=== PATIENT | female | born 1960 | race Caucasian/White ===

== ENCOUNTER 2025-09-20 16:32 | Inpatient (IN) | payer MEDICARE, MEDICAID, SELFPAY ==
[2025-09-20] VITALS (9 sets, daily range): BP systolic 142–155; BP diastolic 67–85; PULSE 68–107; RESP 13–17; TEMP 36.6–36.7; O2SAT 92–98; BMI 30.9
--- NOTE | ~2025-09-20 | XR_ITS ---
EXAM/PROCEDURE: XR chest 1V portable HISTORY: cough and shortness of breath COMPARISON: September 20 TECHNIQUE: AP view(s) of the chest. FINDINGS: LUNGS: Clear of acute processes. PLEURAL SPACES: Clear. No evidence of fluid or pneumothorax. HEART/ MEDIASTINUM: Normal in appearance. SOFT TISSUES: No significant findings. BONES: No acute osseous abnormality. IMPRESSION: No acute findings. Reviewed, dictated and finalized at location A. IMPRESSION: No acute findings.
--- NOTE | ~2025-09-20 | XR_ITS ---
EXAMINATION: XR chest 1V portable COMPARISON: No comparisons available. HISTORY: AMS FINDINGS: The lungs are clear, no effusion. No pneumothorax. Heart is normal size. Mediastinal and hilar contours are within normal limits. Bony thorax no acute abnormality. Miscellaneous: None Impression: No acute cardiopulmonary abnormality. Reviewed, dictated and finalized at location P. Impression: No acute cardiopulmonary abnormality.
--- NOTE | ~2025-09-20 | CT_ITS ---
EXAMINATION: CT brain wo azucena, 09/20/2025 17:35 CDT HISTORY: AMS COMPARISON: No comparisons available. Technique: Axial images obtained of the brain without contrast. One or more of the following dose reduction techniques were used: automated exposure control, adjustment of the mA and/or kV according to patient size, use of iterative reconstruction technique. Findings: No acute infarct or parenchymal hemorrhage. No abnormal mass or mass effect. No midline shift. No extra-axial fluid collections. No hydrocephalus. Mastoid air cells unremarkable. Sinuses and orbits unremarkable. No acute fracture. No significant facial or scalp soft tissue swelling evident. No radiopaque foreign body is seen. Impression: 1.No acute intracranial abnormality. Reviewed, dictated and finalized at location P. Impression: 1.No acute intracranial abnormality.
--- NOTE | 2025-09-20 16:38 | ED_ITS ---
HPI - Altered Mental Status General Chief Complaint: Altered Mental Status Stated Complaint: AMS History of Present Illness HPI narrative: 65-year-old female presenting from [facility] after EMS was called for altered mental status. Patient was found in bed, soaking in urine, empty fifth of vodka in the room. Patient is awake and answering questions to her name and location. Patient states she just does not feel good. She states she is dying. Per EMS report patient has a history of seizure disorder, leukemia, bipolar. Per EMS report patient was potentially lying around in bed since Sunday as they were called to the same location for similar complaint but patient refused transfer at that time and was found to be intoxicated as well. Patient is answering questions but has no focal complaints other than stating that she does not feel well and is dying. Endorses drinking alcohol. Has not been taking her medications. Related Data Allergies Allergy/AdvReac Type Severity Reaction Status Date / Time trimethoprim Allergy Mild Unknown Verified 09/20/25 16:55 lithium Allergy Unknown Verified 09/20/25 16:55 Sulfa (Sulfonamide Allergy Unknown Verified 09/20/25 16:55 Antibiotics) Review of Systems 2 Review of Systems: ROS unobtainable: Yes unobtainable due to medical condition and unobtainable due to mental status Exam 2 Narrative: GENERAL: Disheveled, foul smelling, clothing soaked in urine with various stains HEAD: Normocephalic, atraumatic EYES: Pupils equal reactive to light, 3 mm, no ocular entrapment or asymmetry ENT: Nares clear, no rhinorrhea or epistaxis. Mucous membranes dry. NECK: Supple. CHEST: Coughing frequently, coarse breath sounds but no wheezing or rhonchi HEART: [Regular rate and rhythm]. No murmur heard. [Normal peripheral pulses.] ABDOMEN: [Soft, nondistended], [nontender], [No rigidity or guarding] EXTREMITIES: Normal range of motion. [No edema.] SKIN: Warm, dry, no rash. NEURO: Able to move all extremities, alert oriented times 2-3, no facial asymmetry or ocular movement impairment. Answering questions and has some slurring speech Course Vital Signs Vital signs: Vital Signs Pulse Rate 68 09/20/25 16:31 Respiratory Rate 16 09/20/25 16:31 Blood Pressure 149/70 H 09/20/25 16:31 Pulse Oximetry 92 09/20/25 16:31 Oxygen Delivery Room Air 09/20/25 16:31 Pulse Rate 96 09/20/25 17:17 Respiratory Rate 17 09/20/25 17:17 Blood Pressure 153/73 H 09/20/25 17:17 Pulse Oximetry 96 09/20/25 17:17 Oxygen Delivery Room Air 09/20/25 17:12 Procedures EJ/Peripheral Line Arm L: EJ/Peripheral Line Date: 09/20/25 EJ/Peripheral Line Time: 17:04 Time Out Performed: Yes Skin Cleansed in Sterile Fashion: Yes Ultrasound Guided: Yes Size (gauge): 20 IV Secured and Dressing Applied: Yes Patient Tolerated Procedure: well and no complications MDM - Altered Mental Status MDM Narrative Medical decision making narrative: 65-year-old female presenting from [facility] after EMS was called for altered mental status. Patient was found in bed, soaking in urine, empty fifth of vodka in the room. Patient is awake and answering questions to her name and location. Patient states she just does not feel good. She states she is dying. Per EMS report patient has a history of seizure disorder, leukemia, bipolar. Per EMS report patient was potentially lying around in bed since Sunday as they were called to the same location for similar complaint but patient refused transfer at that time and was found to be intoxicated as well. Patient is answering questions but has no focal complaints other than stating that she does not feel well and is dying. Endorses drinking alcohol. Has not been taking her medications. Patient is very disheveled in appearance, clothing his soaked in urine and various stains. She is coughing frequently throughout the examination has some coarse breath sounds. No decubitus ulcerations or signs of trauma. Patient is able to answer questions alert times 2-3. No focal neurological deficits. Appears intoxicated. Broad workup underway at this time given patient is not able to provide great history. Possibility of alcohol intoxication, drug intoxication, dehydration, intracranial process, rhabdomyolysis, UTI, pneumonia. CT scan of the head obtained as well as toxicological panel workup with blood work and urinalysis with straight catheterization and drug screen. Patient is highly intoxicated alcohol level 399. She has an anion gap metabolic acidosis presumptively alcoholic or starvation ketosis. Mildly elevated lactate probably from dehydration. Normal kidney function and normal electrolytes. Patient given dextrose containing fluids for rehydration as well as thiamine and multivitamin. She has a rhabdomyolysis with an elevated CPK of almost 1400. Repeat laboratory studies ordered after fluid replenishment. Patient has not had any of her Keppra and several days so she is given a 1500 mg bolus. Chest x-ray and EKG unremarkable. CT of the head unremarkable. Given patient's significant alcohol intoxication and rhabdomyolysis she will require admission for trending labs and rehydration and monitoring. Spoke to the hospitalist mid- level provider Kymberly who accepted the patient to a telemetry bed at this time. Medical Records Attestation: I reviewed the patient's medical records. Lab Data Attestation: I reviewed the patient's lab results. 09/20/25 16:58 09/20/25 16:58 Labs: Lab Results 09/20/25 09/20/25 09/20/25 Range/Units 16:53 16:58 16:58 WBC 2.8 L (4.5-10.0) K/mm3 RBC 4.29 (4.2-5.4) M/mm3 Hgb 12.1 (12.0-15.0) g/dL Hct 37.8 (37.0-47.0) % MCV 88.1 (80-100) fl MCH 28.2 (26-34) pg MCHC 32.0 (32-36) g/dl RDW 16.8 H (11.5-14.5) % Plt Count 283 (150-375) k/mm3 MPV 8.5 (7.4-10.4) fl Immature Gran % (Auto) 1.1 H (0-0.5) % Neut % (Auto) 26.5 L (45.5-73.1) % Lymph % (Auto) 61.2 H (18.3-44.2) % Laporte % (Auto) 8.7 H (2.6-8.5) % Eos % (Auto) 1.1 (0-4.4) % Baso % (Auto) 1.4 H (0.2-1.2) % Lymph # (Auto) 1.69 (0.9-3.2) K/mm3 Laporte # (Auto) 0.2 (0.1-0.6) K/mm3 Eos # (Auto) 0.0 (0-0.3) K/mm3 Baso # (Auto) 0.0 (0.0-0.1) K/mm3 Abs Immat Gran (auto) 0.03 (0.00-0.031) K/mm3 Absolute Neuts (auto) 0.7 L (1.3-6.7) K/mm3 Absolute Nucleated RBC 0.000 (0.0-0.012) K/mm3 Nucleated RBC % 0.0 (0.0-0.2) % PT 14.1 (11.1-14.7) Seconds INR 1.1 APTT 25.5 (22.3-36.8) Seconds Sodium 138 (137-145) mmol/L Potassium 4.6 (3.4-5.0) mmol/L Chloride 96 L (98-107) mmol/L Carbon Dioxide 17 L (22-30) mmol/L Anion Gap 25 H (4-12) mmol/L BUN 10 (7-17) mg/dL Creatinine 0.81 (0.7-1.0) mg/dL Estim Creat Clear Calc 67 ml/min Estimated GFR > 60 (59 - ) Glucose 98 (65-110) mg/dL Lactic Acid 2.6 H (0.7-2.0) mmol/L Calcium 9.1 (8.4-10.2) mg/dL Total Bilirubin 0.7 (0.2-1.3) mg/dL AST 115 H (14-36) U/L ALT 35 (6-35) U/L Alkaline Phosphatase 233 H (38-126) U/L Total Creatine Kinase 1392 H Cancelled (30-135) U/L Total Protein 8.1 (6.3-8.2) g/dL Albumin 4.9 (3.5-5.1) g/dL TSH (Reflex) 0.505 (0.465-4.68) uIU/mL Urine Color Yellow (Yellow) Urine Appearance Clear (Clear) Urine pH 5.0 (5.0-9.0) Ur Specific Dewitt 1.012 (1.001-1.035) Urine Protein 2+ H (Negative) mg/dL Urine Glucose (UA) Negative (Negative) mg/dL Urine Ketones 3+ H (Negative) mg/dL Ur Blood (Man) 2+ H (Negative) Urine Nitrate Negative (Negative) Urine Bilirubin Negative (Negative) Urine Urobilinogen 0.2 (<2.0) mg/dL Leukocyte Esterase Rfl Negative (Negative) TAVARES/UL Urine RBC 0-2 (0-2) /hpf Urine WBC 0-5 (0-3) /hpf Ur Squamous Epith Cells None seen (Few) /hpf Urine Bacteria None seen /hpf Urine Casts 0-2 Salicylates < 1.0 L (2-20) mg/dL Urine Opiates Screen Negative (Negative) Urine Methadone Screen Negative (Negative) Acetaminophen < 10 L (10-30) ug/mL Ur Barbiturates Screen Negative (Negative) Ur Phencyclidine Scrn Negative (Negative) Ur Amphetamine Screen Negative (Negative) U Benzodiazepines Scrn Negative (Negative) Urine Cocaine Screen Negative (Negative) U Cannabinoids Screen Negative (Negative) Ethyl Alcohol 399 H* (<10) mg/dL Imaging Data Attestation: I personally reviewed and interpreted this imaging study as follows: My impression: Impressions Chest X-Ray 09/20/25 17:30 Impression: No acute cardiopulmonary abnormality. Head CT 09/20/25 17:43 Impression: 1.No acute intracranial abnormality. Discharge Plan Discharge Clinical Impression: Altered mental status, Alcoholic intoxication, Rhabdomyolysis, Alcoholic ketoacidosis Patient Disposition: Still a Patient Condition: Stable Time of Disposition: 19:00
--- OUTSIDE RECORDS SUMMARY | 2025-09-20 16:56 | XMS_ITS | Encounter Summary ---
Author Organization [facility] Address [address] [place] [address] Phone Care Team Providers Care Modeling Agent Name Role Phone No, Physician Primary Care Provider [phone] Marla Keene MD Unavailable Unknown, Notinfile Primary Care Provider Unavail able Encounter Details Date Type Department Care Team (Late st Contact Info) Description 07/31/2024 Telephone [facility] Bone Marrow Transplant [address], [place] [address] Yesi Pa V. Social History Tobacco Use Types Packs/Day Years Used Date Smoking Tobacco: Never Smokeless Tobacco: Never PHQ-2 Answer Date Recorded PHQ-2 Total Score (If total score is 3 or more points, staff should administer the PHQ-9) 0 08/01/2024 PHQ-9 Answer Date Recorded PHQ-9 Total Score 1 08/01/2024 Personal Safety Answer Date Recorded Getting School Help Needed Not on file 07/02 Comments No Sex and Gender Information Value Date Recorded Sex Assigned at Not on file Legal Sex Female 9:00 AM CDT Gender Identity Female 07/22/2025 12:24 PM CDT Sexual Orientation Not on file documented as of this encounter Plan of Treatment Not on file documented as of this encounter Visit Diagnoses Not on filedocumented in this encounter Additional Health Concerns Infection Onset Date Last Indicated Resolved Time COVID: Suspected 09/07/2024 09/07/2024 09/07/2024 1:40 PM CDT COVID: Suspected 09/14/2024 09/14/2024 09/14/2024 4:54 PM CDT COVID: Suspected 09/15/2024 09/15/2024 09/15/2024 6:24 PM CDT COVID: Suspected 09/25/2024 09/25/2024 09/25/2024 6:22 PM CDT C. difficile suspected Comment:09/29/24: Pt unable to provide sample since ordering date of 09/25. -Naheed Singer RN 09/25/2024 09/25/2024 09/29/2024 10 :30 AM GLOBAL SALES EXECUTIVE COVID: Suspected 10/06/2024 10/06/2024 10/06/2024 1:18 PM GLOBAL SALES EXECUTIVE COVID: Suspected 10/27/2024 10/27/2024 10/27/2024 5:14 PM GLOBAL SALES EXECUTIVE COVID: Suspected 10/27/2024 10/27/2024 10/27/2024 8:46 PM GLOBAL SALES EXECUTIVE Norovirus suspected 02/06/2025 02/06/2025 02/08/20 3:05 AM CDT Rotavirus suspected 02/06/2025 02/06/2025 02/08/20 3:05 AM CDT C. difficile suspected 02/06/2025 02/06/202502/07 3:05 AM CDT COVID: Suspected 03/29/2025 03/29/2025 03/29/2025 7:11 PM CDT COVID: Suspected 07/06/2025 07/06/2025 07/06/2025 9:27 PM CDT Ring Surveillance: C. auris Comment:07/07/25: Patient has been identified as part of ring surveillance efforts in regard to c.auris. Patient may require a screening swab. No additional isolation precautions are necessary with this flag/n.moll 07/14/25- screening swab results Not detected/n.moll 07/07/2025 07/07/2025 07/14/2025 11:32 A M CDT COVID: Suspected 07/22/2025 07/22/2025 07/22/2025 12:56 PM CDT Rhino/Enterovirus 09/11/2025 09/11/2025 09/18/2025 7:26 PM CDT documented as of this encounter Care Teams Modeling Agent Relationship Specialty Start Date End Date No, Physician PCP - General 8/20/24 7/10/25 Unknown, Notinfile PCP - General 06/05/25 Marla Keene MD [address] [employer] [place] [address] Consulting Physician Medical Oncology 07/21/24 documented as of this encounter
--- OUTSIDE RECORDS SUMMARY | 2025-09-20 16:56 | XMS_ITS | Encounter Summary ---
Author Organization [facility] Address [address] [place] [address] Care Team Providers Care Wig Stylist Name Role Phone No, Physician Primary Care Provider [phone] Marla Keene MD Unavailable Unknown, Notinfile Primary Care Provider Unavail able Encounter Details Date Type Department Care Team (Late st Contact Info) Description 08/04/2024 Documentation [facility] Neuro Interventional Radiology [address] [place] [address] Bing Best, RT Social History Tobacco Use Types Packs/Day Years Used Date Smoking Tobacco: Never Smokeless Tobacco: Never [facility] Utilities Answer Date Recorded In the past 12 months has [employer] electric, gas, oil, or water company threatened to shut off services in your home? No 08/07/2024 Social Connection and Isolation Panel Answer Date Recorded In a typical week, how many times do you talk on the phone with family, friends, or neighbors? Twice a week 08/07/2024 How often do you get together with friends or re latives? Once a week 08/07/2024 How often do you attend mormonism or yarsanism serv ices? Never 08/07/2024 Do you belong to any clubs o r organizations such as mormonism groups, unions, fraternal or athletic groups, or school groups? No 08/07/2024 How often do you attend meet ings of the clubs or organizations you belong to? Never 08/07/2024 Are you , , di vorced, , never , or living with a partner? 08/07/2024 Overall Financial Resource Strain (CARDIA) Answe r Date Recorded How hard is it for you to pa y for the very basics like food, housing, medical care, and heating? Not hard at all 08/07/2024 PHQ-2 Answer Date Recorded PHQ-2 Total Score 0 08/07/2024 Hunger Vital Sign Answer Date Recorded Within the past 12 months, y ou worried that your food would run out before you got the money to buy more. Never true 08/07/20 24 Within the past 12 months, t he food you bought just didn't last and you didn't have money to get more. Never true 08/07/2024 PRAPARE - Transportation Answer Date Re corded In the past 12 months, has l ack of transportation kept you from medical appointments or from getting medications? Yes 07/27 In the past 12 months, has l ack of transportation kept you from meetings, work, or from getting things needed for daily living? No 08/07/2024 PHQ-9 Answer Date Recorded PHQ-9 Total Score 1 08/01/2024 Housing Stability Vital Sign Answer Nino e Recorded In the last 12 months, was t here a time when you were not able to pay the mortgage or rent on time? No 08/07/2024 In the past 12 months, how m any times have you moved where you were living? 1 08/07/2024 At any time in the past 12 m [facility], were you homeless or living in a alf (including now)? No 08/07/2024 Personal Safety Answer Date Recorded Getting School [...] RN 09/25/2024 09/25/2024 09/29/2024 10 :30 AM HOSE HANDLER COVID: Suspected 10/06/2024 10/06/2024 10/06/2024 1:18 PM HOSE HANDLER COVID: Suspected 10/27/2024 10/27/2024 10/27/2024 5:14 PM HOSE HANDLER COVID: Suspected 10/27/2024 10/27/2024 10/27/2024 8:46 PM HOSE HANDLER Norovirus suspected 02/06/2025 02/06/2025 02/08/20 3:05 AM [...] documented as of this encounter Care Teams Wig Stylist Relationship Specialty Start Date End Date No, Physician PCP - General 07/15/24 06/04/25 Unknown, Notinfile PCP - General 06/05/25 Marla Keene MD [address] [place] [address] Consulting Physician Medical Oncology 07/21/24 documented as of this encounter
--- OUTSIDE RECORDS SUMMARY | 2025-09-20 16:56 | XMS_ITS | Encounter Summary ---
Author Organization [facility] Address [address] [place] [address] Phone Care Team Providers Care Household Appliances Service Technician Name Role Phone No, Physician Primary Care Provider [phone] Marla Keene MD Unavailable Unknown, Notinfile Primary Care Provider Unavail able Encounter Details Date Type Department Care Team (Late st Contact Info) Description 07/21/2024 Pre Admission [facility] Bone Marrow Transplant [address], [address] [place] [id number] Pamella Meirda, JODIE Social History Tobacco Use Types Packs/Day Years Used Date Smoking Tobacco: Never Smokeless Tobacco: Never Personal Safety Answer Date Recorded Getting School Help Needed Not on file 07/02 Comments Unknown Sex and Gender Information Value Date Recorded Sex Assigned at Not on file Legal Sex Female 9:00 AM CDT Gender Identity Female 07/22/2025 12:24 PM CDT Sexual Orientation Not on file documented as of this encounter Nursing Notes * Pamella Merida, JODIE - 07/21/2024 3:35 PM CDT Treatment Plan Verification Chemotherapy Plan: R-HyperCVAD Admitting Date: 07/30/24 First cycle? No First dose administration: inpatient growth factor? Yes, Pegfilgrastim On-Body Injector scheduled Is there a dose alteration in this regimen? No Intrathecal Chemotherapy? needing; during admission & after discharge. 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 Oncology Chemotherapy Treatment 06/27/2024 - Present MD Kellen Cosigned by Marla Keene MD at 07/22/2024 1:27 PM CDT documented in this encounter Plan of Treatment Not on [...] RN 09/25/2024 09/25/2024 09/29/2024 10 :30 AM LOST AND FOUND CLERK COVID: Suspected 10/06/2024 10/06/2024 10/06/2024 1:18 PM LOST AND FOUND CLERK COVID: Suspected 10/27/2024 10/27/2024 10/27/2024 5:14 PM LOST AND FOUND CLERK COVID: Suspected 10/27/2024 10/27/2024 10/27/2024 8:46 PM LOST AND FOUND CLERK Norovirus suspected 02/06/2025 02/06/2025 02/08/20 3:05 AM [...] documented as of this encounter Care Teams Household Appliances Service Technician Relationship Specialty Start Date End Date No, Physician PCP - General 07/15/24 06/04/25 Unknown, Notinfile PCP - General 06/05/25 Marla Keene MD [address] [place] [address] Consulting Physician Medical Oncology 07/21/24 documented as of this encounter
--- OUTSIDE RECORDS SUMMARY | 2025-09-20 16:56 | XMS_ITS | Clinical Summary ---
Author Organization [facility] Address [facility] [place] [address] Care Team Providers Care Shed Boss Name Role Phone Unavailable Primary Care Provider Unavailabl e Allergies Active Allergy Reactions Criticality Noted Date Comments Dust Mite Extract Itching,Other (see comment) Low 07/22/2024 Levonorgestrel-Ethinyl Estrad Other (see comment) High 03/12/2024 phlegm [place] Hives,Unknown Medium 06/06/2006 Molds & Smuts Itching,Nausea Only,Rash Medium 07/22/20 24 Pollen Extract Hives 07/16/2025 Seasonal Other (see comment) High 03/12/2024 phlegm Sulfa Antibiotics Itching,Rash,Unknown Medium 06/06/20 06 Sulfamethoxazole-Trimethopri m Rash Medium 07/21/2024 Medications * This document contains information received from the source organization and may not represent a complete record from that organization. acetaminophen (TYLENOL) 500 MG tablet Take 1 tablet (500 mg total) by mouth every 6 (six) hours as needed for Pain. Active aspirin EC 81 MG tablet Take 1 tablet (81 mg total) by mouth daily. 11/06/20 24 025 Active atorvastatin (LIPITOR) 40 MG tablet Take 1 tablet (40 mg total) by mouth daily. 09/20/20 24 Active dasatinib (SPRYCEL) 70 MG tablet Take 1 tablet by mouth daily. 07/09/20 25 Active DULoxetine (CYMBALTA) 60 MG capsule Take 1 capsule (60 mg total) by mouth daily. 04/29/20 25 Active lamoTRIgine (LAMICTAL) 150 MG tablet Take 1 tablet (150 mg total) by mouth 2 (two) times daily. 04/29/20 25 Active levETIRAcetam (KEPPRA) 500 MG tablet Take 1 tablet (500 mg total) by mouth 2 (two) times daily. 04/29/20 25 Active levothyroxine (SYNTHROID) 75 MCG tablet Take 1 tablet (75 mcg total) by mouth daily. 04/29/20 25 Active rOPINIRole (REQUIP) 0.5 MG tablet Take 1 tablet (0.5 mg total) by mouth nightly at bedtime. 04/29/20 25 Active Senna (SENOKOT) 8.6 MG tablet Take 1 tablet (8.6 mg total) by mouth 2 (two) times daily as needed for Constipation. 10/08/20 24 025 Active sucralfate (CARAFATE) 1 G tablet Take 1 tablet (1 g total) by mouth 4 (four) times daily before meals and nightly. 07/17/20 24 Active traZODone (DESYREL) 100 MG tablet Take 2 tablets (200 mg total) by mouth nightly at bedtime. 04/29/20 25 Active ursodiol (ACTIGALL) 300 MG capsule Take 1 capsule (300 mg total) by mouth 2 (two) times daily. 10/08/20 24 026 Active valACYclovir (VALTREX) 500 MG tablet Take 1 tablet (500 mg total) by mouth daily. 09/20/20 24 Active ondansetron (ZOFRAN-ODT) 4 MG disintegrating tabletIndications: Nausea Take 1 tablet (4 mg total) by mouth every 8 (eight) hours as needed for Nausea. 20 tablet 06/15/20 25 Active loratadine (CLARITIN) 10 MG tablet Take 1 tablet (10 mg total) by mouth daily. Active hydrocortisone (ANUSOL-HC) [address] 1 suppository (25 mg total) rectally 2 (two) times daily as needed for Hemorrhoids. 07/14/20 25 Active albuterol sulfate HFA 108 (90 Base) MCG/ACT inhaler Inhale 2 puffs into the lungs every 4 (four) hours as needed for Wheezing. Active hydrOXYzine (ATARAX) 25 MG tablet Take 1 tablet (25 mg total) by mouth 3 (three) times daily as needed for Itching. Active olopatadine (PATANOL) 0.1 % ophthalmic solution Place 1 drop into both eyes 2 (two) times daily. Active dapsone 100 MG tablet Take 1 tablet (100 mg total) by mouth daily. 07/23/20 Active fluticasone propionate (FLONASE) 50 MCG/ACT nasal spray 2 sprays by Each Nostril route 2 (two) times daily. 07/23/20 25 Active polyvinyl alcohol 1% - povidone 0.6% (REFRESH) 1.4-0.6 % ophthalmic solution Place 2 drops into both eyes every 4 (four) hours as needed (dry eyes). Active dextromethorphan-g uaiFENesin (ROBITUSSIN-DM) 10-100 MG/5ML liquid Take 10 mLs by mouth every 4 (four) hours as needed (cough). Active benzonatate (TESSALON) 100 MG capsule Take 1 capsule (100 mg total) by mouth 3 (three) times daily as needed for Cough. Active clonazePAM (KLONOPIN) 0.5 MG tabletIndications: Seizure (CMS/HCC HHS/HCC) Take 1 tablet (0.5 mg total) by mouth 2 (two) times daily. Takes with 0.25 mg for a total of 0.75 mg BID 10 tablet 08/16/20 25 Active clonazePAM (KLONOPIN) 0.25 MG disintegrating tabletIndications: Seizure (CMS/HCC HHS/HCC) Take 1 tablet (0.25 mg total) by mouth every 12 (twelve) hours. Takes with 0.5 mg for a total of 0.75 mg BID 10 tablet 08/16/20 25 Active clonazePAM (KLONOPIN) 1 MG tabletIndications: Seizure (CMS/HCC HHS/HCC) Take 1 tablet (1 mg total) by mouth daily. At noon 10 tablet 08/16/20 25 Active guaiFENesin ER (MUCINEX) 600 MG 12 hr tablet Take 1 tablet (600 mg total) by mouth 2 (two) times daily. 28 tablet 08/16/20 25 Active pantoprazole EC (PROTONIX) 40 MG tablet Take 1 tablet (40 mg total) by mouth 2 (two) times a day. 07/14/20 25 025 predniSONE (DELTASONE) 20 MG tablet Take 2 tablets (40 mg total) by mouth daily for 3 days. 6 tablet 08/19/20 25 025 Active Problems Problem Noted Date Diagnosed Date PNA (pneumonia) 08/13/2025 Acute respiratory failure with hypoxia Acquired hypothyroidism 07/25/2025 Gastroesophageal reflux dise ase with esophagitis without hemorrhage 07/25/2025 Pure hypercholesterolemia 07/25/2025 Coronary artery disease invo lving [place] coronary artery of [place] heart without angina pectoris 07/25/2025 Rectal bleed 07/07/2025 Bradycardia 07/07/2025 Pre-diabetes 06/07/2025 Acute alcoholic intoxication 04/03/2025 Alcoholic ketoacidosis 04/03/2025 Elevated LFTs 04/03/2025 Dehydration 04/03/2025 Transient ischemic attack (TIA) 03/30/2025 Chest pain, unspecified type 03/29/2025 Moderate malnutrition 10/16/2024 Pancytopenia 10/15/2024 Fever 10/15/2024 Epistaxis 10/15/2024 Thrombocytopenia, secondary 10/15/2024 Central venous line infection 09/25/2024 Diarrhea 09/25/2024 Severe malnutrition 09/17/2024 Staphylococcus epidermidis bacteremia 09/16/2024 Failure to thrive in adult 09/15/2024 Generalized weakness 09/14/2024 Constipation 09/14/2024 Leukocytosis 09/14/2024 Hypokalemia 09/14/2024 Nausea and vomiting 08/19/2024 Sepsis 08/19/2024 Cancer associated pain 08/07/2024 Acute leukemia 06/25/2024 B-cell acute lymphoblastic leukemia (ALL) 2023 Alcohol use 06/21/2024 Anemia 06/21/2024 Benzodiazepine dependence 06/21/2024 Thrombocytopenia 06/21/2024 Hypomagnesemia 06/20/2024 Angiomyolipoma of left kidney 03/29/2024 Hiatal hernia 03/29/2024 Colon, diverticulosis 03/29/2024 Umbilical hernia 03/29/2024 Acute cystitis 03/27/2024 Anxiety 03/27/2024 Precordial pain 03/27/2024 Tachycardia 03/27/2024 Abdominal pain 03/11/2024 Bipolar disorder 04/04/2023 Gastroesophageal reflux disease without esophagi tis 04/04/2023 DANIS (generalized anxiety disorder) 04/04/2023 History of [place] (myocardial infarction) 04/04/2023 Hyperlipidemia 04/04/2023 Seasonal allergic rhinitis 04/04/2023 Restless leg syndrome 04/04/2023 UTI (urinary tract infection) 09/16/2021 Alcohol withdrawal 09/15/2021 Alcoholic liver disease 09/15/2021 Confusion 09/15/2021 Sleep apnea, unspecified Seizure Resolved Problems Problem Noted Date Diagnosed Date Resolved Date Persons encountering health services in other specified circumstances 07/21/2024 08/31/2025 Encounters * This document contains information received from the source organization and may not represent a complete record from that organization. Date Type Department Care Team Description 09/15/2025 Telephone [facility] Family & Internal Medicine [address] [phone] Teja Sun MD Advice (Nurse Triage - After Hours ([id number])/) 09/03/2025 Travel 09/01/2025 5:20 PM CDT [facility]ial [facility] Family & Internal Medicine [address] [phone] Teja Sun MD Custodial (D/C 06/08/25) 08/25/2025 1:40 PM CDT [facility]ial [facility] Family & Internal [address] [phone] Teja Sun MD Custodial (Re-admit/Pt is being seen at [facility] ) 08/19/2025 Scan HEALTH INFO SRVCS Scanned, [facility] 08/14/2025 Scan MG HEALTH INFO SRVCS Scanned, [facility] 08/13/2025 2:48 PM CDT - 08/17/2025 2:04 PM CDT Hospital Encounter [facility] Med/Surg [address] [place] [address] [id number] Thais Taylor MD McGowen, Payton K, MD Littlejohn, Mary C, APNP Mahtani, Andrew, MD Dodt, Darah R, APRN Verma, Seema, MD Cough; Generalized Weakness Discharge Disposition: Halfway Facility 08/13/2025 Travel 08/04/2025 5:00 PM CDT [facility] Family & Internal [address] [phone] Teja Sun MD Custodial (Re-admit) 07/31/2025 Travel 07/30/2025 9:27 PM CDT - 08/03/2025 1:18 PM CDT Hospital Encounter [facility] Med/Surg [address] [place] [address] Slade Mayberry MD Lamonica, Kandace C, MD Daniels, Darcy L, Rachael Shukla, PAMELLA Cough Discharge Disposition: Halfway Facility 07/30/2025 Travel 07/21/2025 1:00 PM CDT [facility] Family & Internal [address] [phone] Teja Sun MD Custodial (New admit) 06/29/2025 Telephone [facility] [address] [place] [address] Geraldine Torres APRN Record Request 06/23/2025 4:01 PM CDT - 06/24/2025 1:05 PM CDT Emergency [facility] Emergency Services [address] [place] [address] Teja Mendez MD Suicidal Ideation Discharge Disposition: Transfer to Acute Care Hospital 06/23/2025 Travel from Last 3 Months Immunizations Immunization Administration Dates Next Due Influenza (Generic) 08/19/2020,12/29/2015 Influenza Adult (Generic) 10/14/2019,08/29/2018 Pneumococcal (Prevnar 20) 02/11/2024 Shingrix 03/22/2023 Tdap (Generic) 10/25/2015 Family History Medical History Relation Comments Arthritis Brother COPD Brother Heart Disease Brother Diabetes Father Heart Disease Father Hypertension Father Mental Health Mother Hypertension Sister Relation Status Comments Brother Alive Father Mother Sister Alive Social History Tobacco Use Types Packs/Day Years Used Date Smoking Tobacco: Never Smokeless Tobacco: Never Tobacco Cessation:Counseling Given: No Alcohol Use Standard Drinks/Week Comments Not Currently 0 (1 standard drink = 0.6 oz pur e alcohol) [facility] Utilities Answer Date Recorded In the past 12 months has th e electric, gas, oil, or water company threatened to shut off services in your home? No 08/13/2025 Humiliation, Afraid, Rape, and Kick questionnair e Answer Date Recorded Within the last year, have y ou been afraid of your partner or ex-partner? No 08/13/2025 Within the last year, have y ou been humiliated or emotionally abused in other ways by your partner or ex-partner? No Within the last year, have y ou been kicked, hit, slapped, or otherwise physically hurt by your partner or ex-partner? No 08/13/2025 Within the last year, have y ou been raped or forced to have any kind of sexual activity by your partner or ex-partner? No 08/13/2025 Social Connection and Isolation Panel Answer Date Recorded In a typical week, how many times do you talk on the phone with family, friends, or neighbors? Never 07/31/2025 Frequency of Social Gatherings with Friends and Family Not on file 07/31/2025 Attends Scientologist Services Not on file 07/31 Active Member of Clubs or Organizations Not on f ile 07/31/2025 Attends Club or Organization Meetings Not on shaun e 07/31/2025 Marital Status Not on file 07/31/2025 AUDIT-C Answer Date Recorded Q1: How often do you have a drink containing alc ohol? Never 07/31/2025 Average Number of Drinks Not on file 025 Frequency of Binge Drinking Not on file 03/2025 Overall Financial Resource Strain (CARDIA) Answe r Date Recorded How hard is it for you to pa y for the very basics like food, housing, medical care, and heating? Hard 08/13/2025 PHQ-2 Answer Date Recorded Patient Health Questionnaire-2 Score 0 06/15/2025 [facility] - Occupational Stress Questionnaire Answer Date Recorded Do you feel stress - tense, restless, nervous, or anxious, or unable to sleep at night because your mind is troubled all the time - these days? Very much 07/31/2025 Exercise Vital Sign Answer Date Recorde d On average, how many days pe r week do you engage in moderate to strenuous exercise (like a brisk walk)? 0 days 07/31/2025 On average, how many minutes do you engage in exercise at this level? 0 min 07/31/2025 Hunger Vital Sign Answer Date Recorded Within the past 12 months, y ou worried that your food would run out before you got the money to buy more. Never true 08/13/20 25 Within the past 12 months, t he food you bought just didn't last and you didn't have money to get more. Never true 08/13/2025 PRAPARE - Transportation Answer Date Re corded In the past 12 months, has l ack of transportation kept you from medical appointments or from getting medications? No 07/27 In the past 12 months, has l ack of transportation kept you from meetings, work, or from getting things needed for daily living? No 08/13/2025 Housing Stability Vital Sign Answer Nino e Recorded In the last 12 months, was t here a time when you were not able to pay the mortgage or rent on time? No 08/13/2025 In the past 12 months, how m any times have you moved where you were living? 3 08/13/2025 At any time in the past 12 m [facility], were you homeless or living in a longterm (including now)? No 08/13/2025 Comments No Sex and Gender Information Value Date Recorded Sex Assigned at Female 06/02/2025 2:00 PM CDT Legal Sex Female 1:59 PM CDT Gender Identity Female 07/30/2025 9:37 PM CDT Sexual Orientation Not on file Last Filed Vital Signs Vital Sign Reading Time Taken Comments Blood Pressure 158/90 09/03/2025 4:42 PM CDT Pulse 66 09/03/2025 4:42 PM CDT Temperature 36.6 C (97.8 F) 08/25/2025 1:51 PM CDT Respiratory Rate 18 09/03/2025 4:42 PM CDT Oxygen Saturation 98% 09/03/2025 4:42 PM CDT Inhaled Oxygen Concentration - - Weight 94 kg (207 lb 4.8 oz) 09/03/2025 4:42 PM CDT Height 170.2 cm (5' 7) 09/03/2025 4:42 PM CDT Body Mass Index 32.47 09/03/2025 4:42 PM CDT Plan of Treatment Health Maintenance Due Date Last Done Comments ASCVD LDL 1959 Colorectal Cancer Screening Colonoscopy (10 Years) 1959 Hepatitis C 1977 Hepatitis A Vaccines (1 of 2 - Risk 2-dose series) 1978 Mammogram Screening 1999 RSV Immunization or 60+ Years (1 - Risk 60-74 years 1-dose series) 2019 COVID-19 Vaccine (2 - Moderna risk series) 04/19/2023 03/22/2023 Zoster Vaccines (2 of 2) 05/17/2023 03/22/2023 Annual Medicare Wellness Visit 2024 Dexa Scan (General) 2024 Influenza Adult (#1) 2025 08/19/2020, 10/14/2019, 08/29/2018, Additional history exists DTaP, Tdap and Td Vaccines (2 - Td or Tdap) 10/25/2025 10/25/2015 Pneumococcal Vaccine: 50+ Years Completed 02/11/2024 PHQ-2 (Physician [place]) Completed 06/15/2025 Meningococcal B Vaccine Aged Out No l onger eligible based on patient's age to complete this topic Meningococcal Vaccine Aged Out No jazmine oskar eligible based on patient's age to complete this topic RSV Immunizations Under 20 Months Aged Out No longer eligible based on patient's age to complete this topic Goals Goal Patient Goal Type Associated Problems Recent Progress Patient-Stated? Author Family - family caregiver with be involved in care transitions and discharge planning Lifestyle No Ivy Middleton, RN Interventions Community Resource Recommendations Community Resource Services Recommended Domains Addressed Status Status Reason/Outcome Date/Time [facility] ([facility]) - Emergency Rental Assistance Program (ERAP) Financial Assistance Financial Resource Strain Recommended 07/31/2025 9:53 AM CDT [facility] Public Housing Program Government Benefits, Senior Care Housing, Public Housing, Residential Housing Financial Resource Strain, Housing Stability Recommended 07/31/2025 9:53 AM CDT [facility] Meals On Wheels - [facility] [employer] Wheels Food Delivery Food Insecurity Recommended 07/31/2025 9:53 AM CDT from Last 12 Months Procedures Procedure Name Priority Date/Time Associated Diagnosis Comments CBC W/DIFF AUTOMATED Routine 08/17/2025 6:02 AM CDT BASIC METABOLIC PANEL Routine 08/17/2025 6:02 AM CDT PROCALCITONIN (PCT) Routine 08/16/2025 1 1:11 AM CDT CBC W/DIFF AUTOMATED STAT 08/16/2025 11:11 AM CDT BASIC METABOLIC PANEL STAT 08/16/2025 11:11 AM CDT TROPONIN, QUANT TIMED 08/15/2025 5:16 AM CDT PROCALCITONIN (PCT) Routine 08/15/2025 5 :16 AM CDT BASIC METABOLIC PANEL Routine 08/15/2025 5:16 AM CDT CBC W/DIFF AUTOMATED Routine 08/15/2025 5:16 AM CDT TROPONIN, QUANT TIMED 08/15/2025 1:53 AM CDT ECG 12-LEAD Routine 08/15/2025 1:42 AM CDT RESPIRATORY PCR PANEL 2 Routine 08/14/2025 12:42 PM CDT CULTURE LOWER RESPIRATORY W/GRAM STAIN Routine 08/14/2025 9:43 AM CDT HC INFECT AGENT DETECT OPTICAL Routine 08/14/2025 9:18 AM CDT LEGIONELLA AG URINE Routine 08/14/2025 9 :18 AM CDT MRSA SCREENING Routine 08/14/2025 9:18 AM CDT VITAMIN B12 / FOLATE Routine 08/14/2025 6:05 AM CDT FERRITIN Routine 08/14/2025 6:05 AM CDT IRON SAT PANEL (IRON,IBC,%SAT) Routine 08/14/2025 6:05 AM CDT PROCALCITONIN (PCT) Routine 08/14/2025 6 :05 AM CDT MAGNESIUM Routine 08/14/2025 6:05 AM CDT COMPREHENSIVE METABOLIC PANEL Routine 08/14/2025 6:05 AM CDT CBC W/DIFF AUTOMATED Routine 08/14/2025 6:05 AM CDT CULTURE, BACTERIA, BLOOD STAT 08/13/2025 7:45 PM CDT LACTIC ACID W REFLEX (SEPSIS) STAT 08/13/2025 7:45 PM CDT CULTURE, BACTERIA, BLOOD STAT 08/13/2025 7:05 PM CDT XR CHEST PA+LAT STAT 08/13/2025 5:10 PM CDT CORONAVIRUS (COVID 19) STAT 4:23 PM CDT INFLUENZA A & B STAT 08/13/2025 4:23 PM CDT RESP SYNCYTIAL VIRUS STAT 08/13/2025 4:23 PM CDT PRO-BRAIN NATRIURETIC PEPTIDE STAT 08/13/2025 4:23 PM CDT TROPONIN, QUANT STAT 08/13/2025 4:23 PM CDT COMPREHENSIVE METABOLIC PANEL STAT 08/13/2025 4:23 PM CDT CBC W/DIFF AUTOMATED STAT 08/13/2025 4:23 PM CDT ECG 12-LEAD Routine 08/13/2025 3:28 PM CDT POCT GLUCOSE - DOCKED DEVICE Routine 08/03/2025 11:42 AM CDT XR CHEST PA+LAT Today 08/03/2025 11:19 AM CDT POCT GLUCOSE - DOCKED DEVICE Routine 08/03/2025 7:50 AM CDT BASIC METABOLIC PANEL Routine 08/03/2025 6:32 AM CDT CBC W/DIFF AUTOMATED Routine 08/03/2025 6:32 AM CDT MAGNESIUM Routine 08/03/2025 6:32 AM CDT POCT GLUCOSE - DOCKED DEVICE Routine 08/02/2025 8:09 PM CDT POCT GLUCOSE - DOCKED DEVICE Routine 08/02/2025 4:29 PM CDT POCT GLUCOSE - DOCKED DEVICE Routine 08/02/2025 11:11 AM CDT POCT GLUCOSE - DOCKED DEVICE Routine 08/02/2025 7:26 AM CDT PROCALCITONIN (PCT) Routine 08/02/2025 7 :08 AM CDT BASIC METABOLIC PANEL Routine 08/02/2025 7:08 AM CDT CBC W/DIFF AUTOMATED Routine 08/02/2025 7:08 AM CDT MAGNESIUM Routine 08/02/2025 7:08 AM CDT POCT GLUCOSE - DOCKED DEVICE Routine 08/01/2025 8:14 PM CDT POCT GLUCOSE - DOCKED DEVICE Routine 08/01/2025 4:40 PM CDT POCT GLUCOSE - DOCKED DEVICE Routine 08/01/2025 11:01 AM CDT POCT GLUCOSE - DOCKED DEVICE Routine 08/01/2025 7:51 AM CDT PROCALCITONIN (PCT) Routine 08/01/2025 7 :21 AM CDT BASIC METABOLIC PANEL Routine 08/01/2025 7:21 AM CDT CBC W/DIFF AUTOMATED Routine 08/01/2025 7:21 AM CDT MAGNESIUM Routine 08/01/2025 7:21 AM CDT POCT GLUCOSE - DOCKED DEVICE Routine 07/31/2025 8:56 PM CDT POCT GLUCOSE - DOCKED DEVICE Routine 07/31/2025 4:10 PM CDT POCT GLUCOSE - DOCKED DEVICE Routine 07/31/2025 11:17 AM CDT BASIC METABOLIC PANEL STAT 07/31/2025 9:10 AM CDT POCT GLUCOSE - DOCKED DEVICE Routine 07/31/2025 7:37 AM CDT CULTURE LOWER RESPIRATORY W/GRAM STAIN Routine 07/31/2025 7:25 AM CDT BASIC METABOLIC PANEL Routine 07/31/2025 5:35 AM CDT CBC W/DIFF AUTOMATED Routine 07/31/2025 5:35 AM CDT MAGNESIUM STAT 07/31/2025 5:35 AM CDT POCT GLUCOSE - DOCKED DEVICE Routine 07/31/2025 1:52 AM CDT PROCALCITONIN (PCT) Routine 07/31/2025 1 :22 AM CDT URINE BACTERIA CULTURE STAT 11:17 PM CDT URINALYSIS, AUTO, COMPLETE STAT 07/30/2025 11:17 PM CDT CULTURE, BACTERIA, BLOOD STAT 07/30/2025 10:30 PM CDT CULTURE, BACTERIA, BLOOD STAT 07/30/2025 10:30 PM CDT XR CHEST PORTABLE STAT 07/30/2025 10: 22 PM CDT LACTIC ACID W REFLEX (SEPSIS) STAT 07/30/2025 9:50 PM CDT ECG 12-LEAD Routine 07/30/2025 9:45 PM CDT RESP SYNCYTIAL VIRUS STAT 07/30/2025 9:30 PM CDT INFLUENZA A & B STAT 07/30/2025 9:30 PM CDT CORONAVIRUS (COVID 19) STAT 9:30 PM CDT MAGNESIUM STAT 07/30/2025 9:30 PM CDT PRO-BRAIN NATRIURETIC PEPTIDE STAT 07/30/2025 9:30 PM CDT TROPONIN, QUANT STAT 07/30/2025 9:30 PM CDT COMPREHENSIVE METABOLIC PANEL STAT 07/30/2025 9:30 PM CDT CBC W/DIFF AUTOMATED STAT 07/30/2025 9:30 PM CDT CTA CHEST PE PROTOCOL STAT 06/24/2025 11:38 AM CDT ETHANOL STAT 06/24/2025 3:15 AM CDT ECG 12-LEAD STAT 06/23/2025 10:36 PM CDT CORONAVIRUS (COVID 19) STAT 4:15 PM CDT MAGNESIUM STAT 06/23/2025 4:15 PM CDT WBC WI DIFFERENTIAL TIMED 06/23/2025 4 :15 PM CDT TSH W/REFLEX STAT 06/23/2025 4:15 PM CDT DRUG SCREEN RAPID STAT 06/23/2025 4:1 5 PM CDT SALICYLATE STAT 06/23/2025 4:15 PM CDT ETHANOL STAT 06/23/2025 4:15 PM CDT ACETAMINOPHEN STAT 06/23/2025 4:15 PM CDT COMPREHENSIVE METABOLIC PANEL STAT 06/23/2025 4:15 PM CDT CBC W/DIFF AUTOMATED STAT 06/23/2025 4:15 PM CDT ECG 12-LEAD STAT 06/23/2025 4:05 PM CDT from Last 3 Months Results * (ABNORMAL) BASIC METABOLIC PANEL (08/17/2025 6:02 AM CDT) Only the most recent of8 resultswithin the time period is included. GLUCOSE 95 70 - 99 MG/DL 08/17/2025 7:00 AM CDT [facility] BUN 20(H) 7 - 18 MG/DL 08/17/2025 7:00 AM T [facility] CREATININE S/P/B 0.62 0.55 - 1.02 MG/DL 08/17/2025 7:00 AM [facility] SODIUM S/P/B 138 136 - 145 MMOL/L 08/17/2025 7:00 AM [facility] POTASSIUM S/P/B 3.6 3.5 - 5.1 MMOL/L 08/17/2025 7:00 AM T [facility] CHLORIDE S/P/B 101 100 - 108 MMOL/L 08/17/2025 7:00 AM [facility] CO2 25.7 21 - 32 MMOL/L 08/17/2025 7:00 AM [facility] CALCIUM S/P/B 9.1 8.5 - 10.1 MG/DL 08/17/2025 7:00 AM [facility] ANION GAP 11.3 5 - 15 MMOL/L 08/17/2025 7:00 AM [facility] BUN CREATININE RATIO 32.3(H) 6 - 26 08/17/2025 7:00 AM [facility] GFR ESTIMATE >90 >90 ML/MIN/1.7 3 M2 08/17/2025 7:00 AM [facility] Comment: NOTE: eGFR is not calculated for patients <18 years of age. This is an estimated GFR calculation using the new CKD EPI creatinine equation without race and so does not require a correction factor for race. This estimated GFR should not be used for calculating drug doses. 08/17/2025 6:02 AM CDT [facility] Final Res ult [facility] [address] [place] [address], [place] [phone] * (ABNORMAL) CBC W/DIFF AUTOMATED (08/17/2025 6:02 AM CDT) Only the most recent of11 resultswithin the time period is included. WBC 3.45(L) 4.4 - 11.0 x10'3/uL 08/17/2025 7:14 AM CDT [facility] RBC 3.01(L) 4.50 - 5.10 x10'6/uL 08/17/2025 7:14 AM CDT [facility] HGB 8.8(L) 12.3 - 15.3 G/DL 08/17/2025 7:14 AM CDT [facility] HCT 28.9(L) 35.9 - 44.6 % 08/17/2025 7:14 AM CDT [facility] MCV 96.0 80.0 - 96.0 FL 08/17/2025 7:14 AM CDT [facility] MCH 29.2 25.3 - 30.9 PG 08/17/2025 7:14 AM CDT [facility] MCHC 30.4(L) 31.0 - 34.1 G/DL 08/17/2025 7:14 AM CDT [facility] RDW 17.1(H) 12.4 - 15.1 % 08/17/2025 7:14 AM CDT [facility] PLT 226 151 - 353 x10'3/uL 08/17/2025 7:14 AM CDT [facility] MPV 9.8 9.6 - 12.0 FL 08/17/2025 7:14 AM CDT [facility] RBC MORPHOLOGY NORMAL 08/17/2025 7:14 AM CDT [facility] PLT MORPH. NORMAL 08/17/2025 7:14 AM CDT [facility] WBC MORPHOLOGY NORMAL 08/17/2025 7:14 AM CDT [facility] LYMPHOCYTES % 37.1 15.8 - 45.0 % 08/17/2025 7:14 AM CDT [facility] NEUTROPHILS % 46.6 42.1 - 71.9 % 08/17/2025 7:14 AM CDT [facility] MONOCYTES % 12.8(H) 5.7 - 12.5 % 08/17/2025 7:14 AM CDT [facility] EOSINOPHILS 0.3 0.0 - 5.6 % 08/17/2025 7:14 AM CDT [facility] BASOPHILS 0.3 0.0 - 1.3 % 08/17/2025 7:14 AM CDT [facility] ABS. NEUTROPHILS 1.61 1.40 - 6.00 x10'3/uL 08/17/2025 7:14 AM CDT [facility] IMMATURE GRANS % 2.9(H) 0.0 - 0.5 % 08/17/2025 7:14 AM CDT [facility] ABS. LYMPHOCYTES 1.28 0.80 - 4.70 x10'3/uL 08/17/2025 7:14 AM CDT [facility] 08/17/2025 6:02 AM CDT us Kayy GARRISON LABORATORY Final Res ult [facility] [address] [place] [address], * PROCALCITONIN (PCT) (08/16/2025 11:11 AM CDT) Only the most recent of6 resultswithin the time period is included. PROCALCITONIN 0.10 0.00 - 0.25 NG/ML 08/16/2025 12:30 PM CDT [facility] Comment: PROCALCITONIN INTERPRETATION GUIDELINES LOWER RESPIRATORY TRACT INFECTIONS (LRTI): USE OF PCT IN INPATIENT OR EMERGENCY SITUATION INITIATION OF ANTIBIOTICS PCT VALUE INTERPRETATION <0.10 NG/ML ANTIBIOTIC THERAPY STRONGLY DISCOURAGED. 0.10-0.25 NG/ML ANTIBIOTIC THERAPY DISCOURAGED. 0.26-0.50 NG/ML ANTIBIOTIC THERAPY ENCOURAGED. >0.50 NG/ML ANTIBIOTIC THERAPY STRONGLY ENCOURAGED. DISCONTINUE ANTIBIOTICS PCT LESS THAN OR EQUAL TO 0.25 NG/ML OR DELTA PCT >80 PERCENT DELTA PCT= PCT(PEAK)-PCT(CURRENT)/PCT(PEAK)X100% STUDIES HAVE EVALUATED PCT PROTOCOLS IN THESE PATIENTS AND FOUND THAT FOR PATIENTS WHO ARE CLINICALLY STABLE AND ARE TREATED AT THE ED OR ARE HOSPITALIZED, THE INITIATION OF ANTIBIOTIC THERAPY SHOULD BE BASED ON CLINICAL GROUNDS AND A PCT VALUE OF GREATER THAN OR EQUAL TO 0.26 NG/ML. IF PCT REMAINS LOWER, ANTIBIOTICS CAN BE WITHHELD AND PATIENTS CAN BE REASSESSED CLINICALLY WITHOUT SAFETY CONCERNS. IF PATIENTS ARE CLINICALLY STABLE, AN ALTERNATIVE DIAGNOSIS SHOULD BE CONSIDERED. IF PATIENTS ARE UNSTABLE, THEN ANTIBIOTICS MAY BE CONSIDERED. IF PATIENTS DO NOT IMPROVE IN THE SHORT FOLLOW UP PERIOD OF 6 TO 12 HOURS, CLINICAL RE-EVALUATION AND RE-MEASUREMENT OF PCT IS RECOMMENDED. 08/16/2025 11:1 1 AM CDT Kayy NAVARRO LABORATORY Final Res ult [facility] [address] [place] [address], * TROPONIN, QUANT (08/15/2025 5:16 AM CDT) Only the most recent of4 resultswithin the time period is included. Pathologist [facility] TROPONIN I HIGH SENSITIVITY 9 0 - 50 ng/L 08/15/2025 6:06 AM CDT [facility] Comment: HIGH DOSES OF BIOTIN, TROPONIN-SPECIFIC AUTOANTIBODIES, AND ANTIBODY THERAPY CONTAINING HAMA MAY INTERFERE WITH THIS TEST RESULT. CORRELATION TO CLINICAL HISTORY AND PRESENTATION RECOMMENDED. 08/15/2025 5:16 AM CDT us Yakelin Valdes MD LABORATORY Final Result [facility] [address] [place] [address], * ECG 12 lead (08/15/2025 1:42 AM CDT) Only the most recent of5 resultswithin the time period is included. 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1960 Requested By: YAKELIN VALDES Order Number: [id number] Reading MD: Calvin Frederick Measurements Intervals [place] Rate: 73 P: 63 OR: 168 QRS: 29 QRSD: 102 T: 73 QT: 388 QTc: 430 Interpretive Statements SINUS RHYTHM Compared to ECG 08/13/2025 15:28:07 No significant changes Procedure Note Calvin Frederick MD - 08/17/2025 [facility] Test Date: 2025-08-15 Pat Name: LATIA NAM Department: 85 Room: 1021 Gender: Female 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1960 Requested By: YAKELIN VALDES Order Number: [id number] Reading MD: Calvin Frederick Measurements Intervals [place] Rate: 73 P: 63 OR: 168 QRS: 29 QRSD: 102 T: 73 QT: 388 QTc: 430 Interpretive Statements SINUS RHYTHM Compared to ECG 08/13/2025 15:28:07 No significant changes Yakelin Valdes MD ECG ORDERABLES Final Result [facility] RAD * (ABNORMAL) RESPIRATORY PCR PANEL 2 (08/14/2025 12:42 PM CDT) ADENOVIRUS PCR (RESP) NOT DETECTED NOT DETECTED 08/14/2025 9:09 PM CDT [facility] CORONAVIRUS 229E PCR (RESP) NOT DETECTED NOT DETECTED 08/14/2025 9:09 PM CDT [facility] CORONAVIRUS HKU1 PCR (RESP) NOT DETECTED NOT DETECTED 08/14/2025 9:09 PM CDT [facility] CORONAVIRUS NL63 PCR (RESP) NOT DETECTED NOT DETECTED 08/14/2025 9:09 PM CDT [facility] CORONAVIRUS OC43 PCR (RESP) NOT DETECTED NOT DETECTED 08/14/2025 9:09 PM CDT [facility] METAPNEUMOVIRUS PCR (RESP) NOT DETECTED NOT DETECTED 08/14/2025 9:09 PM CDT [facility] RHINOVIRUS/ENTEROV IRUS PCR (RESP) DETECTED(A) NOT DETECTED 08/14/2025 9:09 PM CDT [facility] INFLUENZA A PCR (RESP) NOT DETECTED NOT DETECTED 08/14/2025 9:09 PM CDT [facility] INFLUENZA B PCR (RESP) NOT DETECTED NOT DETECTED 08/14/2025 9:09 PM CDT [facility] PARAINFLUENZA 1 PCR (RESP) NOT DETECTED NOT DETECTED 08/14/2025 9:09 PM CDT [facility] PARAINFLUENZA 2 PCR (RESP) NOT DETECTED NOT DETECTED 08/14/2025 9:09 PM CDT [facility] PARAINFLUENZA 3 PCR (RESP) NOT DETECTED NOT DETECTED 08/14/2025 9:09 PM CDT [facility] PARAINFLUENZA 4 PCR (RESP) NOT DETECTED NOT DETECTED 08/14/2025 9:09 PM CDT [facility] RSV PCR (RESP) NOT DETECTED NOT DETECTED 08/14/2025 9:09 PM CDT [facility] B PARAPERTUSIS PCR (RESP) NOT DETECTED NOT DETECTED 08/14/2025 9:09 PM CDT [facility] BORDETELLA PERTUSSIS PCR (RESP) NOT DETECTED NOT DETECTED 08/14/2025 9:09 PM CDT [facility] CHLAMYDOPHILA PNEUMONIAE PCR (RESP) NOT DETECTED NOT DETECTED 08/14/2025 9:09 PM CDT [facility] MYCOPLASMA PNEUMONIAE PCR (RESP) NOT DETECTED NOT DETECTED 08/14/2025 9:09 PM CDT [facility] CORONAVIRUS SARS COV 2 PCR (RESP) NOT DETECTED NOT DETECTED 08/14/2025 9:09 PM CDT [facility] NASOPHARYNGEAL SWAB / Unknown 08/14/2025 12:42 PM CDT Kayy GARRISON MICROBIOLOGY - GENERAL OR DERABLES Final Result [facility] [address] [place] [address], [place] [phone] * CULTURE RESPIRATORY W/ GRAM STAIN (08/14/2025 9:43 AM CDT) Only the most recent of2 resultswithin the time period is included. SPEC DESCRIPTION SPUTUM, EXPECTORATED 08/14/2025 9:43 AM CDT [facility] SPECIAL REQUESTS NO SPECIAL REQUEST 08/14/2025 9:43 AM CDT [facility] GRAM STAIN RESULT FEW WHITE BLOOD CELLS SEEN 08/14/2025 5:35 PM CDT [facility] GRAM STAIN RESULT FEW MIXED BACTERIAL SHELLY 08/14/2025 5:35 PM CDT [facility] CULTURE RESULT HEAVY GROWTH OF NORMAL SHELLY PRESENT 08/15/2025 9:16 AM CDT [facility] SPUTUM SPECIMEN / Unknown 08/14/2025 9:43 AM CDT 08/14/2025 10:18 AM CDT us Kayy GARRISON MICROBIOLOGY - GENERAL OR DERABLES Final Result Performing Organization Address City/[facility]/ZIP Co de Phone Number [facility] [address] [place] [address], [place] [phone] [facility] [address] [place] [address], [place] [phone] * MRSA SCREENING (08/14/2025 9:18 AM CDT) SPEC DESCRIPTION NASAL 08/14/2025 9:18 AM CDT [facility] SPECIAL REQUESTS NO SPECIAL REQUEST 08/14/2025 9:18 AM CDT [facility] CULTURE RESULT NO METHICILLIN RESISTANT STAPHYLOCOCCUS AUREUS ISOLATED 08/15/2025 1:02 PM CDT [facility] SPECIMEN FROM INTERNAL NOSE / Unknown 08/14/2025 9:18 AM CDT 08/14/2025 9:21 AM CDT us Kayy GARRISON MICROBIOLOGY - GENERAL OR DERABLES Final Result Performing Organization Address City/[facility]/ZIP Co de Phone Number [facility] [address] [place] [address], [place] [phone] [facility] [address] [place] [address], [place] [phone] * STREP PNEUMO AG URINE (08/14/2025 9:18 AM CDT) STREP PNEUMO (URINE) NEGATIVE NEGATIVE 08/17/2025 1:53 PM CDT [facility] URINE SPECIMEN OBTAINED BY CLEAN CATCH PROCEDURE / Unknown 08/14/2025 9:18 AM CDT us Kayy GARRISON MICROBIOLOGY - GENERAL OR DERABLES Final Result [facility] [address] [place] [address], [place] [phone] * LEGIONELLA AG URINE (08/14/2025 9:18 AM CDT) LEGIONELLA ANTIGEN (URINE) NEGATIVE NEGATIVE 08/17/2025 1:53 PM CDT [facility] URINE SPECIMEN / Unknown 08/14/2025 9:18 AM CDT us Kayy GARRISON MICROBIOLOGY - GENERAL OR DERABLES Final Result [facility] [address] [place] [address], [place] [phone] * (ABNORMAL) VITAMIN B12 / FOLATE (08/14/2025 6:05 AM CDT) VITAMIN B12 S/P/B 5,851(H) 193 - 986 PG/ML 08/14/2025 12:40 PM CDT [facility] FOLATE 6.6(L) 8.6 - 58.9 NG/ML 08/14/2025 12:40 PM CDT [facility] 08/14/2025 6:05 AM CDT Kayy Dugganparadise NAVARRO LABORATORY Final Res ult Performing Organization Address [facility] de Phone Number [facility] [address] [place] [address], [place] [phone] * (ABNORMAL) IRON SAT PANEL (IRON,IBC,%SAT) (08/14/2025 6:05 AM CDT) IRON 11(L) 50 - 170 MCG/DL 08/14/2025 11:11 AM CDT [facility] IRON BINDING CAPACITY 277 250 - 450 MCG/DL 08/14/2025 11:11 AM CDT [facility] IRON SATURATION 4(L) 20 - 55 % 11:11 AM CDT [facility] 08/14/2025 6:05 AM CDT Kayy Chawlamanuela NAVARRO LABORATORY Final Res ult Performing Organization Address [facility] Co de Phone Number [facility] [address] [place] [address], [place] [phone] * (ABNORMAL) COMPREHENSIVE METABOLIC PANEL (08/14/2025 6:05 AM CDT) Only the most recent of4 resultswithin the time period is included. GLUCOSE 97 70 - 99 MG/DL 08/14/2025 7:02 AM CDT [facility] BUN 8 7 - 18 MG/DL 08/14/2025 7:02 AM CDT [facility] CREATININE S/P/B 0.60 0.55 - 1.02 MG/DL 08/14/2025 7:02 AM CDT [facility] SODIUM S/P/B 136 136 - 145 MMOL/L 08/14/2025 7:02 AM [facility] POTASSIUM S/P/B 4.3 3.5 - 5.1 MMOL/L 08/14/2025 7:02 AM [facility] CHLORIDE S/P/B 100 100 - 108 MMOL/L 08/14/2025 7:02 AM [facility] CO2 28.3 21 - 32 MMOL/L 08/14/2025 7:02 AM [facility] CALCIUM S/P/B 9.2 8.5 - 10.1 MG/DL 08/14/2025 7:02 AM [facility] BILIRUBIN TOTAL S/P/B 0.5 0.2 - 1.2 MG/DL 08/14/2025 7:02 AM [facility] TOTAL PROTEIN S/P/B 6.6 6.4 - 8.2 G/DL 08/14/2025 7:02 AM [facility] ALBUMIN S/P/B 3.3(L) 3.4 - 5.0 G/DL 08/14/2025 7:02 AM [facility] AST 23 15 - 37 U/L 08/14/2025 7:02 AM [facility] ALT 14 14 - 55 U/L 08/14/2025 7:02 AM [facility] ALKALINE PHOSPHATASE S/P/B 140(H) 50 - 136 U/L 08/14/2025 7:02 AM [facility] ANION GAP 7.7 5 - 15 MMOL/L 08/14/2025 7:02 AM [facility] BUN CREATININE RATIO 13.3 6 - 26 08/14/2025 7:02 AM [facility] A/G RATIO 1.0 1.0 - 2.0 RATIO 08/14/2025 7:02 AM CDT [facility] GFR ESTIMATE >90 >90 ML/MIN/1.7 3 M2 08/14/2025 7:02 AM CDT [facility] Comment: NOTE: eGFR is not calculated for patients <18 years of age. This is an estimated GFR calculation using the new CKD EPI creatinine equation without race and so does not require a correction factor for race. This estimated GFR should not be used for calculating drug doses. 08/14/2025 6:05 AM CDT us Yakelin Valdes MD LABORATORY Final Result [facility] [address] [place] [address], [place] [phone] * (ABNORMAL) MAGNESIUM (08/14/2025 6:05 AM CDT) Only the most recent of7 resultswithin the time period is included. MAGNESIUM 1.7(L) 1.8 - 2.4 MG/DL 08/14/2025 7:02 AM CDT [facility] 08/14/2025 6:05 AM CDT us Yakelin Valdes MD LABORATORY Final Result [facility] [address] [place] [address], [place] [phone] * (ABNORMAL) FERRITIN (08/14/2025 6:05 AM CDT) FERRITIN 505.0(H) 8.0 - 388.0 NG/ML 08/14/2025 11:51 AM CDT [facility] 08/14/2025 6:05 AM CDT Kayy Reyes MELI LABORATORY Final Res ult [facility] [address] [place] [address], [place] [phone] * LACTIC ACID W REFLEX (SEPSIS) (08/13/2025 7:45 PM CDT) Only the most recent of2 resultswithin the time period is included. LACTIC ACID VENOUS 1.5 0.4 - 2.0 MMOL/L 08/13/2025 8:19 PM CDT [facility] 08/13/2025 7:45 PM CDT Thais Taylor MD LABORATORY Final Resu lt Performing Organization Address [facility]/ZIP Co de Phone Number [facility] [address] [place] [address], [place] [phone] * CULTURE, BACTERIA, BLOOD (08/13/2025 7:45 PM CDT) Only the most recent of4 resultswithin the time period is included. Pathologist [facility] SPEC DESCRIPTION BLOOD 08/13/2025 5:46 PM CDT [facility] SPECIAL REQUESTS NO SPECIAL REQUEST 08/13/2025 5:46 PM CDT [facility] CULTURE RESULT NO GROWTH 5 DAYS 08/19/2025 2:20 PM CDT [facility] BLOOD SPECIMEN OBTAINED FOR BLOOD CULTURE / Unknown 08/13/2025 7:45 PM CDT 08/13/2025 8:01 PM CDT Thais Taylor MD MICROBIOLOGY - GENERAL ORD ERABLES Final Result Performing Organization Address City/[facility]/ZIP Co de Phone Number [facility] [address] [place] [address], [place] [phone] [facility] [address] [place] [address], [place] [phone] * XR CHEST PA+LAT (08/13/2025 5:10 PM CDT) Only the most recent of2 resultswithin the time period is included. Anatomical Region Laterality Modality Chest Radiographic Aviva ging 08/13/2025 5:27 PM CDT Impressions 08/13/2025 5:28 PM CDT Impression: Left basilar infiltrate. Referred By: Interpreted By: Carroll Bautista MD, 08/13/2025 5:27 PM Narrative 08/13/2025 5:28 PM CDT [facility] [address] [place] [address] Examination: Chest 2 View History: Cough DATE/TIME: 08/13/2025 5:05 PM Comparison: 08/03/2025 Technique: PA and lateral views were obtained. Findings: Heart size, mediastinal contours and pulmonary normal limits. There is left basilar infiltrate suspicious for pneumonia. No pleural effusion or pneumothorax. Acute osseous abnormality Procedure Note Carroll Bautista MD - 08/13/2025 [facility] [address] [place] [address] Examination: Chest 2 View History: Cough DATE/TIME: 08/13/2025 5:05 PM Comparison: 08/03/2025 Technique: PA and lateral views were obtained. Findings: Heart size, mediastinal contours and pulmonary normal limits.There is left basilar infiltrate suspicious for pneumonia. No pleuraleffusion or pneumothorax. Acute osseous abnormality Impression: Left basilar infiltrate. Referred By: Interpreted By: Carroll Bautista MD, 08/13/2025 5:27 PM Thais Taylor MD GENERAL IMAGING Final Resu lt * CORONAVIRUS (COVID-19) MOLECULAR (08/13/2025 4:23 PM CDT) Only the most recent of3 resultswithin the time period is included. [facility] CORONAVIRUS SARS COV 2 RNA NEGATIVE NEGATIVE 08/13/2025 4:52 PM CDT [facility] Comment: NEGATIVE RESULTS DO NOT RULE OUT COVID 19 AND SHOULD NOT BE USED THE SOLE BASIS FOR TREATMENT OR PATIENT MANAGEMENT DECISIONS, INCLUDING INFECTION CONTROL DECISIONS. NEGATIVE RESULTS SHOULD BE CONSIDERED IN THE CONTEXT OF A PATIENT'S RECENT EXPOSURES, HISTORY AND THE PRESENCE OF CLINICAL SIGNS AND SYMPTOMS CONSISTENT WITH COVID 19. THE ID NOW COVID-19 2.0 TEST HAS BEEN AUTHORIZED BY THE FDA UNDER EAU FOR USE BY AUTHORIZED LABORATORIES. PERFORMED BY NUCLEIC ACID AMPLIFICATION FOR MOLECULAR QUALITATIVE DETECTION OF SARS-COV-2. SPECIMEN TYPE NASAL 08/13/2025 4:24 PM CDT [facility] NASOPHARYNGEAL SWAB / Unknown 08/13/2025 4:23 PM CDT us Thais Taylor MD MICROBIOLOGY - GENERAL ORD ERABLES Final Result [facility] [address] [place] [address], * (ABNORMAL) PRO-BRAIN NATRIURETIC PEPTIDE (08/13/2025 4:23 PM CDT) Only the most recent of2 resultswithin the time period is included. Pathologist [facility] PRO-B TYPE NATRIURETIC PEPTIDE 341(H) <125 PG/ML 08/13/2025 4:52 PM CDT [facility] Comment: CUT POINTS ESTABLISHED BY [employer]NATIONAL [employer] ON NT PROBNP (ICON) STUDY (2006). AGE INDEPENDENT: <300 PG/ML HAS A 99% NEGATIVE PREDICTIVE VALUE FOR EXCLUDING ACUTE CHF <50 YEARS: >450 PG/ML IS CONSISTENT WITH ACUTE CHF 50-75 YEARS: >900 PG/ML IS CONSISTENT WITH ACUTE CHF >75 YEARS: >1800 PG/ML IS CONSISTENT WITH ACUTE CHF IN PATIENTS WITH RENAL INSUFFICIENCY (GFR <60), >1200 PG/ML YIELDS A DIAGNOSTIC SENSITIVITY AND SPECIFICITY OF 89% AND 72% FOR ACUTE CHF. 08/13/2025 4:23 PM CDT us Thais Taylor MD LABORATORY Final Resu lt Performing Organization Address [facility] Co de Phone Number [facility] [address] [place] [address], [place] [phone] * INFLUENZA A & B (08/13/2025 4:23 PM CDT) Only the most recent of2 resultswithin the time period is included. SPECIMEN TYPE NASOPHARYNX 08/13/2025 4:53 PM CDT [facility] INFLUENZA A NEGATIVE NEGATIVE 08/13/2025 4:53 PM CDT [facility] INFLUENZA B NEGATIVE NEGATIVE 08/13/2025 4:53 PM CDT [facility] NASAL NASOPHARYNGEAL SWAB / Unknown 08/13/2025 4:23 PM CDT us Thais Taylor MD MICROBIOLOGY - GENERAL ORD ERABLES Final Result Performing Organization Address [facility] de Phone Number [facility] [address] [place] [address], [place] [phone] * RESP SYNCYTIAL VIRUS (08/13/2025 4:23 PM CDT) Only the most recent of2 resultswithin the time period is included. SPECIMEN TYPE NASOPHARYNGEAL SWAB 08/13/2025 4:24 PM CDT [facility] RAPID RSV NEGATIVE NEGATIVE 08/13/2025 4:53 PM CDT [facility] NASOPHARYNGEAL SWAB / Unknown 08/13/2025 4:23 PM CDT us Thais Taylor MD MICROBIOLOGY - GENERAL ORD ERABLES Final Result Performing Organization Address [facility] Co de Phone Number [facility] [address] [place] [address], [place] [phone] * (ABNORMAL) POCT glucose (08/03/2025 11:42 AM CDT) Only the most recent of15 resultswithin the time period is included. GLUCOSE POC 134(H) 70 - 110 mg/dL 08/03/2025 11:46 AM CDT [facility] 08/03/2025 11:4 2 AM CDT Rachael Hassan LABORATORY ANALYST POCT ORDERABLES - DEVICE Final Result Performing Organization Address [facility] de Phone Number [facility] [address] [place] [address], [place] [phone] * (ABNORMAL) CULTURE URINE (07/30/2025 11:17 PM CDT) SPEC DESCRIPTION URINE CLEAN CATCH 07/30/2025 11:14 PM CDT [facility] SPECIAL REQUESTS NO SPECIAL REQUEST 07/30/2025 11:14 PM CDT [facility] CULTURE RESULT 10,000-49,0 00 COL/ML ENTEROCOCCU S SPECIES (A) 08/02/2025 7:46 AM CDT [facility] URINE SPECIMEN OBTAINED BY CLEAN CATCH PROCEDURE / Unknown 07/30/2025 11:17 PM CDT 07/30/2025 11:22 PM CDT Narrative Organism Antibiotic Method Susceptibility Enterococcus species AMPICILLIN NAHUM (VITEK) <=2: Sensitive Enterococcus species NITROFURANTOIN NAHUM (VITEK) <=16: Sensitive Enterococcus species GENT. SYNERGY SCREEN NAHUM (VITEK) Resistant Enterococcus species PENICILLIN G NAHUM (VITEK) 8: Sensitive Slade Mayberry MD MICROBIOLOGY - GENERAL ORD ERABLES Final Result [facility] [address] [place] [address], [place] [phone] [facility] [address] [place] [address], [place] [phone] * (ABNORMAL) URINALYSIS, AUTO, COMPLETE (07/30/2025 11:17 PM CDT) COLOR (U) YELLOW 07/30/2025 11:40 PM CDT [facility] TRANSPARENCY HAZY 07/30/2025 11:40 PM CDT [facility] SPECIFIC GRAVITY (U) 1.010 1.000 - 1.030 07/30/2025 11:40 PM CDT [facility] U PH 6.0 5.0 - 9.0 07/30/2025 11:40 PM CDT [facility] LEUKOCYTES (U) NEGATIVE NEGATIVE 07/30/2025 11:40 PM CDT [facility] NITRITES NEGATIVE NEGATIVE 07/30/2025 11:40 PM CDT [facility] PROTEIN RANDOM (U) 2+(A) NEGATIVE 07/30/2025 11:40 PM CDT [facility] GLUCOSE (U) NEGATIVE NEGATIVE 07/30/2025 11:40 PM CDT [facility] KETONES MG/DL (U) NEGATIVE NEGATIVE 07/30/2025 11:40 PM CDT [facility] BILIRUBIN (U) 1+(A) NEGATIVE 07/30/2025 11:40 PM CDT [facility] BLOOD (U) TRACE(A) NEGATIVE 07/30/2025 11:40 PM CDT [facility] WBC/HPF 0-5 0 - 5 /HPF 07/30/2025 11:40 PM CDT [facility] RBC/HPF 5-10 0 - 5 /HPF 07/30/2025 11:40 PM CDT [facility] EPI/HPF FEW /HPF 07/30/2025 11:40 PM CDT [facility] URINE SPECIMEN OBTAINED BY CLEAN CATCH PROCEDURE / Unknown 07/30/2025 11:17 PM CDT us Slade Mayberry MD URINE ORDERABLES Final Res ult [facility] [address] [place] [address], [place] [phone] * XR CHEST PORTABLE (07/30/2025 10:22 PM CDT) Anatomical Region Laterality Modality Chest Radiographic Aviva ging 07/30/2025 10:3 2 PM CDT Impressions 07/30/2025 10:33 PM CDT IMPRESSION: Mild bilateral peribronchial prominence which can be seen with bronchitis/bronchiolitis. Referred By: Interpreted By: Kd Dodd DO, 07/30/2025 10:32 PM Narrative 07/30/2025 10:33 PM CDT [address] [place] [address] EXAMINATION: X-ray chest HISTORY: Acute shortness of breath. COMPARISON: None. TECHNIQUE: Portable AP view chest. FINDINGS: The heart size and vascular markings appear within normal limits. There is no mediastinal shift. No evidence of pneumonia, pleural effusion, or pneumothorax. There are small benign calcified nodules and lymph nodes. There is atherosclerotic calcification of the aorta. There is mild bilateral peribronchial prominence which can be seen with bronchitis/bronchiolitis. Procedure Note Kd Dodd DO - 07/30/[address] [place] [id number] EXAMINATION: X-ray chest HISTORY: Acute shortness of breath. COMPARISON: None. TECHNIQUE: Portable AP view chest. FINDINGS: The heart size and vascular markings appear within normal limits. Thereis no mediastinal shift. No evidence of pneumonia, pleural effusion, orpneumothorax. There are small benign calcified nodules and lymph nodes.There is atherosclerotic calcification of the aorta. There is mildbilateral peribronchial prominence which can be seen withbronchitis/bronchiolitis. IMPRESSION: Mild bilateral peribronchial prominence which can be seen withbronchitis/bronchiolitis. Referred By: Interpreted By: Kd Dodd DO, 07/30/2025 10:32 PM us Slade Mayberry MD GENERAL IMAGING Final Resu lt * CTA CHEST PE PROTOCOL (06/24/2025 11:38 AM CDT) Anatomical Region Laterality Modality Chest Computed Tomogra phy 06/24/2025 11:4 6 AM CDT Impressions 06/24/2025 11:47 AM CDT IMPRESSION: 1. No evidence of pulmonary embolism. No acute findings. Ordered By: PAT MILLER Interpreted By: Sky Ching MD, 06/24/2025 11:46 AM Narrative 06/24/2025 11:47 AM CDT [address] [place] [place] [address] CTA CHEST WITH CONTRAST PULMONARY EMBOLISM PROTOCOL Clinical history: Hypoxia. Technique: Dynamic helical images of the chest were obtained after the patient received 80 mL of Isovue 370 nonionic intravenous contrast through an IV in the left antecubital fossa. Images are reviewed in axial, sagittal, and three-dimensional reformatted views. A dose lowering technique was used for this procedure, which may include, but is not limited to, dose reduction technique, automated exposure control, the use of iterative reconstruction, and ALARA (As Low As Reasonably Achievable) / Image Gently techniques. 3-D MIP formatted images were also obtained and are made available for review. Comparison: without prior studies available for comparison. FINDINGS: The obtained images demonstrate good opacification of the pulmonary vasculature. No intraluminal filling defects are observed. There is no evidence of pulmonary embolism. The heart appears normal in size and morphology. No significant pericardial effusion is seen. No pathologically enlarged lymph nodes are present within the mediastinum or atiya. No axillary adenopathy is observed. The great vessels are within normal limits. Pulmonary windows reveal the lungs to be clear bilaterally. No acute consolidations, effusions, or significant pulmonary nodules are observed. Images of the upper abdomen demonstrate the visualized portion of liver to be within normal limits. Procedure Note Sky Ching MD - 06/24/[address] [place] [address] CTA CHEST WITH CONTRAST PULMONARY EMBOLISM PROTOCOL Clinical history: Hypoxia. Technique: Dynamic helical images of the chest were obtained after thepatient received 80 mL of Isovue 370 nonionic intravenous contrast throughan IV in the left antecubital fossa. Images are reviewed in axial,sagittal, and three-dimensional reformatted views. A dose loweringtechnique was used for this procedure, which may include, but is notlimited to, dose reduction technique, automated exposure control, the useof iterative reconstruction, and ALARA (As Low As Reasonably Achievable) /Image Gently techniques. 3-D MIP formatted images were also obtained and are made available forreview. Comparison: without prior studies available for comparison. FINDINGS: The obtained images demonstrate good opacification of the pulmonaryvasculature. No intraluminal filling defects are observed. There is noevidence of pulmonary embolism. The heart appears normal in size and morphology. No significantpericardial effusion is seen. No pathologically enlarged lymph nodes arepresent within the mediastinum or atiya. No axillary adenopathy isobserved. The great vessels are within normal limits. Pulmonary windows reveal the lungs to be clear bilaterally. No acuteconsolidations, effusions, or significant pulmonary nodules areobserved. Images of the upper abdomen demonstrate the visualized portion of liver cecilia within normal limits. IMPRESSION: 1. No evidence of pulmonary embolism. No acute findings. Ordered By: PAT MILLER Interpreted By: Sky Ching MD, 06/24/2025 11:46 AM us Pat Miller MD CT Final Result * ETHANOL (06/24/2025 3:15 AM CDT) Only the most recent of2 resultswithin the time period is included. ALCOHOL S/P/B <0.003 <0.003 G/DL 06/24/2025 3:36 AM CDT [facility] 06/24/2025 3:15 AM CDT us Teja Mendez MD LABORATORY Final Result [facility] [address] [place] [address], * (ABNORMAL) WBC WI DIFFERENTIAL (06/23/2025 4:15 PM CDT) Pathologist [facility] WBC 2.63(L) 4.50 - 11.00 x10'3/uL 06/23/2025 4:37 PM CDT [facility] SEG NEUTROPHILS 29 % 9:11 PM CDT [facility] LYMPHOCYTES 60 % 06/23/2025 9:11 PM CDT [facility] MONOCYTES 7 % 06/23/2025 9:11 PM CDT [facility] EOSINOPHILS 4 % 06/23/2025 9:11 PM CDT [facility] ABS. NEUTROPHILS 0.76(L) 1.80 - 7.70 x10'3/uL 06/23/2025 9:11 PM CDT [facility] ABS. LYMPHOCYTES 1.58 1.00 - 4.80 x10'3/uL 06/23/2025 9:11 PM CDT [facility] ABS. MONOCYTES 0.18(L) 0.24 - 0.86 x10'3/uL 06/23/2025 9:11 PM CDT [facility] ABS. EOSINOPHILS 0.11 0.04 - 0.36 x10'3/uL 06/23/2025 9:11 PM CDT [facility] DIFFERENTIAL TYPE MANUAL DIFFERENTIAL 06/23/2025 9:11 PM CDT [facility] RBC MORPHOLOGY RBC MORPHOLOGY APPEARS NORMAL. SLIDE REVIEWED. 06/23/2025 9:11 PM CDT [facility] PLT EST. ADEQUATE 06/23/2025 9:11 PM CDT [facility] 06/23/2025 4:15 PM CDT Teja Mendez MD LABORATORY Final Result Performing Organization Address City/[facility]/ZIP Co de Phone Number [facility] [address] [place] [address], [address] [address], * TSH W/REFLEX (06/23/2025 4:15 PM CDT) Pathologist [facility] TSH 3.160 0.358 - 3.74 uIU/ML 06/24/2025 3:06 AM CDT [facility] Comment: HIGH DOSES OF BIOTIN MAY INTERFERE WITH THIS TEST RESULT. CORRELATION TO CLINICAL HISTORY AND PRESENTATION RECOMMENDED. FREE T4 NOT INDICATED 06/23/2025 4:15 PM CDT Teja Mendez MD LABORATORY Final Result [facility] [address] [place] [address], * DRUG SCREEN RAPID (06/23/2025 4:15 PM CDT) AMPHETAMINE SCREEN (U) NEGATIVE NEGATIVE 06/23/2025 4:42 PM CDT [facility] BARBITURATES SCREEN (U) NEGATIVE NEGATIVE 06/23/2025 4:42 PM CDT [facility] BENZODIAZEPINES SCREEN (U) NEGATIVE NEGATIVE 06/23/2025 4:42 PM CDT [facility] BUPRENORPHINE SCREEN (U) NEGATIVE NEGATIVE 06/23/2025 4:42 PM CDT [facility] COCAINE METABOLITES (U) NEGATIVE NEGATIVE 06/23/2025 4:42 PM CDT [facility] METHAMPHETAMINE (U) NEGATIVE NEGATIVE 06/23 4:42 PM CDT [facility] METHADONE (U) NEGATIVE NEGATIVE 06/23/2025 4:42 PM CDT [facility] OPIATE SCREEN (U) NEGATIVE NEGATIVE 025 4:42 PM CDT [facility] OXYCODONE SCREEN (U) NEGATIVE NEGATIVE 06/23/2025 4:42 PM CDT [facility] PHENCYCLIDINE PCP (U) NEGATIVE NEGATIVE 06/23/2025 4:42 PM CDT [facility] CANNABINOIDS SCREEN (U) NEGATIVE NEGATIVE 06/23/2025 4:42 PM CDT [facility] TRICYCLIC ANTIDEPRESSANT SCREEN (U) NEGATIVE NEGATIVE 06/23/2025 4:42 PM CDT [facility] Comment: NOTE: RESULTS OF THIS DRUG SCREEN SHOULD BE USED FOR MEDICAL PURPOSES ONLY AND NOT FOR LEGAL AND EMPLOYMENT PURPOSES. CALL THE LAB IF POSITIVE RESULTS NEED CONFIRMATORY TESTING. EPHEDRINE MAY CAUSE FALSE POSITIVE AMPHETAMINE Cut-off Concentration for a positive result AMPHETAMINE- 500 NG/ML BARBITURATE- 200 NG/ML BENZODIAZEPINE- 150 NG/ML BUPRENORPHINE- 10 NG/ML COCAINE- 150 NG/ML METHAMPHETAMINES- 500 NG/ML METHADONE- 200 NG/ML OPIATE- 100 NG/ML OXYCODONE- 100 NG/ML PCP- 25 NG/ML THC- 50 NG/ML TCA- 300 NG/ML U PH 6.0 06/23/2025 4:42 PM CDT [facility] SPECIFIC GRAVITY (U) 1.015 06/23/2025 4:42 PM CDT [facility] URINE SPECIMEN / Unknown 06/23/2025 4:15 PM CDT Teja Mendez MD URINE ORDERABLES Final Result Performing Organization Address [facility]/ZIP Co de Phone Number [facility] [address] [place] [address], * SALICYLATE (06/23/2025 4:15 PM CDT) SALICYLATES 0.6 MG/DL 06/23/2025 4:39 PM CDT [facility] 06/23/2025 4:15 PM CDT Teja Mendez MD LABORATORY Final Result Performing Organization Address [facility] Co de Phone Number [facility] [address] [facility] [address], * (ABNORMAL) ACETAMINOPHEN (06/23/2025 4:15 PM CDT) ACETAMINOPHEN S/P/B 0.0(L) 10 - 30 MCG/ML 06/23/2025 4:47 PM CDT [facility] 06/23/2025 4:15 PM CDT Teja Mendez MD LABORATORY Final Result Performing Organization Address [facility] Co de Phone Number [facility] [address] [place] [address], from Last 3 Months Insurance [facility] [employer] [place] [address] [place] [address] MEDICARE Advance Directives Documents on File Type Date 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
--- OUTSIDE RECORDS SUMMARY | 2025-09-20 16:56 | XMS_ITS ---
Author Organization [facility] Address [address] [place] [address] Care Team Providers Care Child Neurologist Name Role Phone Marla Keene MD Unavailable Unknown, Notinfile Primary Care Provider Unavail able Active Problems Patient Care Coordination No te Formatting of this note is d ifferent from the original. OTTR Update 10/27/24 - Comment: Received a call from the patient. She stated that she was released from [facility] last week on Sunday. She says she was discharged to her daughter's home but is now in a [place] in [place] because her daughter kicked her out. She is needing lodging/transportation assistance. Belle with SW is going to reach out to her to discuss resources and options. Patient no longer has a central line as it was removed at [facility] d/t infection. 9:45am addendum: patient called back to say that she is not feeling well, very weak and having numbness in her fingertips. and had a fall at home last week. She has no one to help her and is currently living in a hotel alone in [facility] and running out of funds. She would be due for [facility] 3A on 10/31 for her B-Cell ALL treatment. Will plan to direct admit today for FTT and plan for possible treatment inpatient starting 10/31. Will need SW to assist into looking at housing/placement after discharge. P Inpatient Care Coordination Diagnosis B-ALL Reason for Admission FTT HCT/IEC Notes Discharge Planning Patient Education Completed [x] Discharge Disposition [x]SNF/Rehab: [place] sn[facility] [][facility] []Home - [facility] distance from [facility] [place] Caregiver: daughter, grandson, (However, says none of them can help her get to/from appointments) Requests Sent to []Case Management: []MAs: []Pharmacy PA team: []SW: ride assistance: only has 6 rides per year through insurance with safe ride, can apply for [employer] (door to door bus transit), patient given info still pending, currently utilizing patient care fund for rides Specialty Medications Med Pharmacy Refills Pt Aware Ponatinib 15mg COST 1.55 PICKED UP FROM [facility] 10/29/24 per pharm. Sent new script on 11/04 and it is at pharm for vegetable picker on patients appt day 11/14. ACB 3 [x] Post-Discharge Follow-Up Venous Access & Care percutaneous central venous catheter (not-tunneled) Local Oncologist Contact Name: Nurse: Phone: Fax: Hem/Onc: Dr. Alvarado Scales (from [place] so no longer sees) Supportive care plan Location Scheduled for Line Care Transfusions Infusion Appts Other Orders H30 [] [place] [x] Locally at [facility] (Pt. Prefers to go to [facility] when possible (labs/line care/blood products), [x] [x] frequency twice weekly - [] for & frequency ____ [x] RXA 11/14 Follow-Up [] Restaging: ____ [] Other pending items: Pt. Reluctantly cooperative, does not have transport support, refused to stay till afternoon to get 2nd IT chemo inpatient, would not allow us to call daughter to talk to her about coordinating care. States grandson [place] drive [place] the [place], daughter works time analysis clerk, and patient does not drive in [place] area. 08/11/24- Pt may miss IT chemo on 08/13. Per outpt - PLEASE MAKE EFFORT TO HAVE HER STAY INPT FOR ENTIRE TREAMENT. Problem Noted Date Diagnosed Date Bradycardia 07/07/2025 Rectal bleed 07/07/2025 Encounter for Medicare annual wellness exam 05/26 Pre-diabetes 06/07/2025 Coronary artery disease 03/30/2025 Transient ischemic attack (TIA) 03/30/2025 Chest pain, unspecified type 03/29/2025 Moderate malnutrition 10/16/2024 Epistaxis 10/15/2024 Fever 10/15/2024 Pancytopenia 10/15/2024 Thrombocytopenia, secondary 10/15/2024 Central venous line infection 09/25/2024 Assessment & Plan (09/25/2024 10:31 PM CDT): ALEJO Jaimes was placed 07/30/24. During recent admission 1/2 Bcx grew MRSE, thought to be contaminatnt as repeat bcx were neg even prior to vanc. CVC site was noted with mild erythema w/o pain, not new. Over last 2d, started having increasing CVC erythenma and pain. Along with myalgia, severe weakness, subjective fevers and chills, nausea and diarrhea -2 sets peripheral bcx -f/up UA. RVP and CXR unremarkable for infection -continue vanc, cefe -monitor site. Discuss w BMT about CVC salvage vs removal Diarrhea 09/25/2024 Assessment & Plan (09/25/2024 10:34 PM CDT): 2d of nausea, loosely formed stools, diffuse abd cramps. Abd exam benign. Still able to tolerate PO. May be inflammatory reaction to infection -looks dry. Ivf. Cdiff for next diarrhea Severe malnutrition 09/17/2024 Staphylococcus epidermidis bacteremia 09/16/2024 Assessment & Plan (09/18/2024 1:22 PM CDT): Concern for sepsis due to fever in prior admission, leukocytosis - 1 out of 2 blood cultures positive for Staphylococcus epidermidis (methicillin-resistant); repeat blood cultures negative before vanco, so stopping as could be a contaminant. - line with erythema, but small area and more like small ecchymosis than cellulitis; painless. Will try to salvage line. Failure to thrive in adult 09/15/2024 Assessment & Plan (09/18/2024 1:17 PM CDT): Secondary to multiple co-morbidities. Appears to require more support than is provided at home. - PT/OT rec SNF - approved by insurance but only for 4 days Constipation 09/14/2024 Assessment & Plan (09/15/2024 9:44 PM CDT): Reports last BM was prior to previous discharge on 09/11 and has not had any BMs since then. - Start on pericolase BID, Miralax BID - Up titrate as needed. Generalized weakness 09/14/2024 Leukocytosis 09/14/2024 Hypokalemia 09/14/2024 Assessment & Plan (09/15/2024 9:34 PM CDT): Likely in setting of poor oral intake and nausea, vomiting. - IVF - Replete as needed. - Encourage oral intake. - Symptomatic management of nausea. Fever 08/19/2024 Assessment & Plan (09/09/2024 2:20 PM CDT): The patient was febrile to 103 F on admission (08/19) with leukocytosis (WBC 18.4). RVP was edwards-negative, UA was unconcerning for infection and CXR was clear. Blood cultures from 08/20 were both no growth. She was treated with cefepime from 08/19 to 08/26 and Vancomycin from 08/20 to 08/25. She remained afebrile, and her WBC count trended downwards. Antibiotics were discontinued on 08/26. She developed another fever (T 38.2) on 09/07 and cefepime was restarted. Repeat blood culture no growth. CXR clear. RVP and UA negative. Cefepime discontinued 09/09. Change to cipro ppx. Assessment & Plan (08/23/2024 1:47 PM CDT): Febrile to 103 on admission(08/19) with leukocytosis of 18.4. Mild erythema at the site of entry of Hons catheter, not consistent with cellulitis RVP negative, chest x-ray clear, UA negative, blood cultures negative to date On Cefepime (08/19 - p),added vancomycin(08/20-p) Remains afebrile, WBC trended down. Continue antibiotics pending further data and clinical course. Assessment & Plan (08/22/2024 3:00 PM CDT): Febrile to 103 on admission(08/19) with leukocytosis of 18.4. Mild erythema at the site of entry of Hons catheter, not consistent with cellulitis RVP negative, chest x-ray clear, UA negative, blood cultures negative to date On Cefepime (08/19 - p),added vancomycin(08/20-) Remains afebrile, WBC trended down. Continue antibiotics pending further data and clinical course. Edwards scan if remains febrile Assessment & Plan (08/21/2024 3:28 PM CDT): Febrile to 103 on admission(08/19) with leukocytosis of 18.4. Mild erythema at the site of entry of Hons catheter, not consistent with cellulitis RVP negative, chest x-ray clear, UA negative, blood cultures negative to date On Cefepime (08/19 - p),added vancomycin(08/20-) Assessment & Plan (08/20/2024 1:11 PM CDT): Febrile to 103 after admission Leukocytosis Mild erythema at the site of entry of Hons catheter, not consistent with cellulitis, monitor Infectious workup sent unrelieved so far On Cefepime (08/19 - p), continue pending further data and clinical course Nausea and vomiting 08/19/2024 Assessment & Plan (08/25/2024 6:46 PM CDT): P.r.n. antiemetics. Assessment & Plan (08/23/2024 1:49 PM CDT): P.r.n. antiemetics Assessment & Plan (08/22/2024 2:59 PM CDT): P.r.n. antiemetics Assessment & Plan (08/21/2024 3:24 PM CDT): Scheduled Zofran, p.r.n. Compazine home meds changed to IV form as available Assessment & Plan (08/20/2024 1:10 PM CDT): Scheduled Zofran, p.r.n. Compazine home meds changed to IV form as available Cancer associated pain 08/07/2024 Persons encountering health services in other specified circumstances 07/21/2024 B-cell acute lymphoblastic leukemia (ALL) 2023 Assessment & Plan (08/01/2024 9:57 PM CDT): Diagnosed during OSH admission for EtOH withdrawal. Received Mod 1A [id number] + TKI locally. Now here for 1B (D1 = 08/01/24). Follows with Dr. Keene. - ponatinib per BMT service - close monitoring for renal complications and hepatotoxicity - close monitoring of MTX levels, avoid NSAIDs, PPIs, penicillins, probenecid, etc. Acute lymphoblastic leukemia (ALL) not having achieved remission 06/25/2024 Assessment & Plan (09/25/2024 10:33 PM CDT): Ph+ B-cell ALL. on R-miniHCVD+Grayson+Ritux. Was recently treated with mod 2A on 08/27 (received neulasta 08/28, recovered counts). She brought her ponatinib with her. Is due for mod 2B 09/26. 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 Mod 1B started on 07/30. Mod 2A initially planned for 08/22 but was held due to weakness. BCR/ABL p190 (08/21) positive (0.32%). Bone marrow biopsy (08/25): MRD+ without morphologic evidence disease. LP 08/27/24 negative. Last, Mod2A mini hyperCVD + R and inotuzumab started 08/27/24. S/p IT MTX and rituximab, vincristine and inotuzumab on day 8 (09/03/24). She received Neulasta on 09/04/2024. - resume ponatinib when available. - OI ppx: dapsone, Valtrex and posaconazole. 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 Mod 1B started on 07/30. Mod 2A initially planned for 08/22 but was held due to weakness. BCR/ABL p190 (08/21) positive (0.32%). Bone marrow biopsy (08/25): MRD+ without morphologic evidence disease. LP 08/27/24 negative --F/u Clonoseq from 08/25 bone marrow biopsy --Mod2A mini hyperCVD + R and inotuzumab started 08/27/24. 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 Mod 1B started on 07/30. Mod 2A planned for 08/22. 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 Mod 1B started on 07/30. Mod 2A planned for 08/22. 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 Mod 1B started on 07/30. Mod 2A planned for 08/22. 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 Mod 1B started on 07/30. Mod 2A planned for 08/22. OI: Ciprofloxacin, posaconazole, valtrex,Ciprofloxacin held as patient was started on cefepime For cancer/treatment later pancytopenia transfuse per BMT protocol Angiomyolipoma of left kidney 03/29/2024 Colon, diverticulosis 03/29/2024 Hiatal hernia 03/29/2024 Umbilical hernia 03/29/2024 Anxiety 03/27/2024 Seizure 09/26/2023 Assessment & Plan (09/25/2024 11:15 PM CDT): Reports hx of epilepsy last sz was 5 months ago. Cont home keppra and lamotrigine. Sz precautions Assessment & Plan (09/15/2024 9:51 PM CDT): Occurred in setting of alcohol withdrawal syndrome in 2019. - Continue home Lamictal and keppra - Per patient last drink >3 months ago Assessment & Plan (09/07/2024 11:48 AM CDT): Occurred in setting of alcohol withdrawal syndrome in 2019 --Continue home doses of Keppra and Lamictal Angina concurrent with and d ue to arteriosclerosis of coronary artery 04/04/2023 Migraine with aura 04/04/2023 Assessment & Plan (08/01/2024 9:50 PM CDT): Will try PRN tylenol for now. Avoid NSAIDs as she is due to receive MTX Vitamin D deficiency 04/04/2023 Seasonal allergic rhinitis 04/04/2023 Assessment & Plan (08/01/2024 9:45 PM CDT): - Cont flonase - PRN atarax Restless leg syndrome 04/04/2023 Assessment & Plan (09/15/2024 9:37 PM CDT): Continue home ropirinole Assessment & Plan (09/03/2024 11:40 AM CDT): --Continue home dose of ropinirole Assessment & Plan (08/23/2024 1:49 PM CDT): Continue home ropirinole Assessment & Plan (08/22/2024 2:59 PM CDT): Continue home ropirinole Assessment & Plan (08/21/2024 3:24 PM CDT): Continue home ropirinole Assessment & Plan (08/19/2024 11:30 PM CDT): Continue home ropirinole Assessment & Plan (08/01/2024 9:45 PM CDT): - Ropinirole 0.5 mg daily DANIS (generalized anxiety disorder) 04/04/2023 Assessment & Plan (09/15/2024 9:42 PM CDT): Reports having panic attacks. On presentation she reported dyspnea and increased anxiety that improved with anxiolytics. - Continue home cymbalta, trazodone, benzodiazepine Assessment & Plan (09/03/2024 11:39 AM CDT): --Continue home medications: duloxetine, clonazepam and PRN trazodone Assessment & Plan (08/23/2024 1:47 PM CDT): Continue cymbalta, trazodone, benzodiazepine Assessment & Plan (08/22/2024 2:56 PM CDT): Continue cymbalta, trazodone, benzodiazepine Assessment & Plan (08/21/2024 3:18 PM CDT): Continue cymbalta, trazodone, benzodiazepine Assessment & Plan (08/19/2024 11:29 PM CDT): Continue cymbalta, trazodone, benzodiazepine Assessment & Plan (08/01/2024 9:49 PM CDT): On benzos for nearly 5 decades. Received Ativan in [place] for breakthrough anxiety/panic attacks related to her new leukemia dx - Continue Cymbalta 60 mg daily, trazodone 200 mg nightly, Klonopin 0.75 qAM/1 after lunch/0.75 evening (not nightly) - PRN Atarax and Ativan for breakthrough anxiety Obstructive sleep apnea syndrome 04/04/2023 Hyperlipidemia 04/04/2023 History of AZ (myocardial infarction) 04/04/2023 Assessment & Plan (09/25/2024 11:15 PM CDT): No hx of stents -home ASA, atorvastatin Assessment & Plan (09/15/2024 9:41 PM CDT): Continue ASA and statin Assessment & Plan (09/09/2024 2:19 PM CDT): --Continue home doses of aspirin (hold for thrombocytopenia) and atorvastatin. Assessment & Plan (08/23/2024 1:47 PM CDT): Continue ASA, atorvastatin Assessment & Plan (08/22/2024 2:56 PM CDT): Continue ASA, atorvastatin Assessment & Plan (08/21/2024 3:18 PM CDT): Continue ASA, atorvastatin Assessment & Plan (08/19/2024 11:28 PM CDT): Continue ASA, atorvastatin Assessment & Plan (08/01/2024 9:47 PM CDT): - ASA, atorva 40 (confirmed w/patient that she is not taking Crestor) Gastroesophageal reflux disease without esophagi tis 04/04/2023 Assessment & Plan (09/25/2024 10:35 PM CDT): -cont home pepcid, sucralfate Assessment & Plan (08/02/2024 6:00 AM CDT): Complicated by hiatal hernia. Quite severe, previously on esomeprazole 40 mg BID and only partially treated with BID famotidine - Carafate 1g QID - PRN Tums (1st line), Maalox (2nd line) - Avoid PPI and ?H2 ananda while receiving MTX Bipolar disorder 04/04/2023 Hypothyroidism, unspecified 09/15/2021 Assessment & Plan (09/15/2024 9:36 PM CDT): Continue home levothyroxine. Assessment & Plan (09/03/2024 11:40 AM CDT): --Continue home dose of levothyroxine 75 mcg q am Assessment & Plan (08/23/2024 1:49 PM CDT): Continue levothyroxine Assessment & Plan (08/22/2024 2:58 PM CDT): Continue levothyroxine Assessment & Plan (08/21/2024 3:24 PM CDT): Continue levothyroxine Assessment & Plan (08/19/2024 11:29 PM CDT): Continue levothyroxine Assessment & Plan (08/01/2024 9:46 PM CDT): - Continue LT4 75 mcg daily Alcohol withdrawal 09/15/2021 Alcoholic liver disease 09/15/2021 Current Treatment and Therapy Plans Adult BMT/ONC - Blood and/or Platelet Administration for Outpatient* Plan Start Date:08/14/2024 Plan Provider:Marla Keene MD Linked Problems B-cell acute lymphoblastic l eukemia (ALL) (HCC) Treatment Medications No medications scheduled. BMT Adult Blood and Platelet Administration for Inpatient* Plan Start Date: 09/26/2024 Plan Provider:Erin Cook MD Linked Problems B-cell acute lymphoblastic l eukemia (ALL) (HCC) Treatment Medications No medications scheduled. Dasatinib Daily for B-Cell ALL* Plan Start Date:03/11/2025 Plan Provider:Marla Keene MD Linked Problems Acute lymphoblastic leukemia (ALL) not having achieved remission (HCC) Treatment Medications Current Day (Day 1, Cycle 13-15 - Planned for 11/06/2025) daSATinib (SPRYCEL) daSATinib (SPRYCEL) 70 mg ta blet Electrolyte Replacement & Hydration Therapy Plan* Plan Start Date:08/18/2024 Plan Provider:Marla Keene MD Linked Problems B-cell acute lymphoblastic l eukemia (ALL) (HCC) Treatment Medications No medications scheduled. IV Maintenance Therapy Plan* Plan Start Date:08/18/2024 Plan Provider:Marla Keene MD Linked Problems Acute lymphoblastic leukemia (ALL) not having achieved remission (HCC) Treatment Medications No medications scheduled. Past Treatment and Therapy Plans BMT/ONC IP BLOOD PRODUCTS Plan Name Start Date Discontinue Date Treatment Medications Discontinue Reason Plan Provider BMT Adult Blood and Platelet Administration for Inpatient 08/02/2024 09/11/2024 No medications scheduled. Patient Discharged Dani Garcia MD Oncology Chemotherapy Treatment Plan Name Start Date Discontinue Date Treatment Medications Discontinue Reason Plan Provider Cycles RiTUXimab - Every 4 Weeks - ALL 12/12/19 25 04/24/2025 riTUXimab-abbs (TRUXIMA)riTUXimab-abbs (TRUXIMA) IVPB in 500 mL Change in Level of Care Marla Keene MD 3 of 3 cycles started INPT - HyperCVAD + TKI +/- Rituximab - ALL 4 08/28/2024 cycloPHOSphamide (CYTOXAN)cytarabine (ABNER-C) IVPB (for doses <1,000 mg/m2)cytarabine (ABNER-C,CYTOSAR-U)cytarab ine-hydrocortisone intrathecalDOXOrubicin (ADRIAMYCIN)leucovorinme sna (MESNEX)methotrexatemeth otrexate IVPB in 1,000 mLmethotrexate IVPB in 250 mLmethotrexate-hydrocort isone (PF) intrathecalPONATinib (ICLUSIG)riTUXimab-abbs (TRUXIMA)riTUXimab-abbs (TRUXIMA) IVPB in 500 mLvinCRIStine Change in Level of Care Marla Keene MD 2 of 4 cycles started Oncology Treatment (2) Plan Name Start Date Discontinue Date Treatment Medications Discontinue Reason Plan Provider Cycles Intrathecal Cytarabine - Leukemia 09/01/2024 cytarabine-hyd rocortisone intrathecal Therapy Complete Gurmeet Hernandez MD PhD 1 of 12 cycles started Oncology Treatment (3) Plan Name Start Date Discontinue Date Treatment Medications Discontinue Reason Plan Provider Cycles MiniHCVD + Inotuzumab + RiTUXimab 08/27/20 24 11/14/2024 cycloPHOSphamide (CYTOXAN)cycloPHOSphamide IVPB in 100 mL (vial 200 mg/mL)([id number])cytarabine (ABNER-C) IVPB (for doses <1,000 mg/m2)cytarabine (ABNER-C,CYTOSAR-U)cytarabi ne-hydrocortisone intrathecalinotuzumab (BESPONSA) ivpb (BESPONSA)inotuzumab ozogamicin (BESPONSA)leucovorinmetho trexatemethotrexate IVPB in 250 mLmethotrexate-hydrocorti sone (PF) intrathecalriTUXimab-abbs (TRUXIMA)riTUXimab-abbs (TRUXIMA) IVPB in 500 mLvinCRIStinevinCRIStine (ONCOVIN) IVPB in 50 mL Change in Level of Care Daryl Garza MD 4 of 8 cycles started Lifetime Dose Tracking * Chemical Lifetime Dose Automatic Entry Manual Entr y Fluoro Time 2.3 minutes 2.3 minutes 0 minutes cyclophosphamide 912.876 mg/m2 (1,920 mg) 912.876 mg/m2 (1,920 mg) 0 mg/m2 (0 mg) Air kerma at the reference point (Ka,r) 129 mGy 129 mGy 0 mGy Resolved Problems Problem Noted Date Diagnosed Date Resolved Date Hyponatremia 08/19/2024 09/02/2024 Assessment & Plan (08/31/2024 9:45 AM CDT): - Na 122 on admission, serum osm 248, urine osm 558, Urine Na 77, normal TSH,AM cortisol 32.2 - Consistent with SIADH but improved with IVF, later on placed on 2L fluid restriction on 08/24. Hyponatremia resolved. Assessment & Plan (08/23/2024 1:49 PM CDT): Na 122 on admission, serum osm 248, urine osm 558, Urine Na 77, normal TSH,AM cortisol 32.2 Consistent with SIADH but improved with IVF Given D5 250 cc over 2 hours(08/20), repeat (08/21) for rapid correction Na 129 this am,Started on IV fluids with NS, repeat 131 Continue IV fluids, monitor with daily BMP Assessment & Plan (08/22/2024 2:58 PM CDT): Resolved/improved with sodium of 136 today Na 122 on admission, serum osm 248, urine osm 558, Urine Na 77, normal TSH,AM cortisol 32.2 Consistent with SIADH but improved with IVF Given D5 250 cc over 2 hours(08/20), repeat (08/21) for rapid correction Nephrology following Assessment & Plan (08/21/2024 3:24 PM CDT): Na 122 on admission, serum osm 248, urine osm 558, Urine Na 77, normal TSH,AM cortisol 32.2 Consistent with SIADH but improved with IVF Nephrology following D5 250 cc over 2 hours(08/20) and repeat (08/21) due to rapid sodium correction Na 134 this am, monitor with q.8 hours BMP Assessment & Plan (08/20/2024 1:09 PM CDT): Na 122 on admission, serum osm 248, urine osm 558, Urine Na 77, normal TSH,AM cortisol 32.2 Consistent with SIADH, euvolemic on exam Received 1 L NS in the clinic and again 500 cc on admit and started on free water restriction to 1.5 L Nephrology consulted Na 130 today Give D5 250 cc over 2 hours, repeat sodium in 4 hours and then q.8 hours. Benzodiazepine dependence 06/21/2024 Assessment & Plan (09/15/2024 9:51 PM CDT): Assessment & Plan (08/23/2024 1:46 PM CDT): Hx of concomitant alcohol use (hx of withdrawal seizure) Last drink >2 months ago continue home benzodiazepine continue keprra and lamictal Assessment & Plan (08/22/2024 2:56 PM CDT): Hx of concomitant alcohol use (hx of withdrawal seizure) Last drink >2 months ago continue home benzodiazepine continue keprra and lamictal Assessment & Plan (08/21/2024 3:18 PM CDT): Hx of concomitant alcohol use (hx of withdrawal seizure) Last drink >2 months ago continue home benzodiazepine continue keprra and lamictal Assessment & Plan (08/20/2024 1:07 PM CDT): Hx of concomitant alcohol use (hx of withdrawal seizure) continue home benzodiazepine continue keprra and lamictal Assessment & Plan (08/01/2024 10:36 PM CDT): Complicated by concomitant alcohol use (had withdrawal seizures/symptoms during prior admission where she was incidentally found to have ALL) - Continue benzos as elsewhere - antiepileptics with keppra, lamictal - Encourage alcohol abstinence
--- OUTSIDE RECORDS SUMMARY | 2025-09-20 16:56 | XMS_ITS | Encounter Summary ---
Author Organization [facility] Address [address] [place] [address] Phone Care Team Providers Care Study Assistant Name Role Phone No, Physician Primary Care Provider [phone] Marla Keene MD Unavailable Unknown, Notinfile Primary Care Provider Unavail able Encounter Details Date Type Department Care Team (Late st Contact Info) Description 12/30/2024 Telephone [facility] Medicine Bone Marrow Transplant [address] [facility] ([place], [place]) Floor [address] [place] [address] Yesi Pa V. Social History Tobacco Use Types Packs/Day Years Used Date Smoking Tobacco: Never Smokeless Tobacco: Never [facility] Utilities Answer Date Recorded In the past 12 months has [employer] electric, gas, oil, or water company threatened to shut off services in your home? No 10/28/2024 Social Connection and Isolation Panel Answer Date Recorded In a typical week, how many times do you talk on the phone with family, friends, or neighbors? Once a week 10/28/2024 How often do you get together with friends or re latives? Never 10/28/2024 How often do you attend scientology or anabaptist serv ices? Never 10/28/2024 Do you belong to any clubs o r organizations such as scientology groups, unions, fraternal or athletic groups, or school groups? No 10/28/2024 How often do you attend meet ings of the clubs or organizations you belong to? Never 10/28/2024 Are you , , di vorced, , never , or living with a partner? 10/28/2024 Overall Financial Resource Strain (CARDIA) Answe r Date Recorded How hard is it for you to pa y for the very basics like food, housing, medical care, and heating? Very hard 10/28/2024 PHQ-2 Answer Date Recorded PHQ-2 Total Score 2 10/28/2024 Hunger Vital Sign Answer Date Recorded Within the past 12 months, y ou worried that your food would run out before you got the money to buy more. Sometimes true Within the past 12 months, t he food you bought just didn't last and you didn't have money to get more. Never true 01/2024 PRAPARE - Transportation Answer Date Re corded In the past 12 months, has l ack of transportation kept you from medical appointments or from getting medications? Yes 01/2024 In the past 12 months, has l ack of transportation kept you from meetings, work, or from getting things needed for daily living? Yes 10/28/2024 PHQ-9 Answer Date Recorded PHQ-9 Total Score 1 08/01/2024 Housing Stability Vital Sign Answer Nino e Recorded In the last 12 months, was t here a time when you were not able to pay the mortgage or rent on time? No 10/28/2024 In the past 12 months, how m any times have you moved where you were living? 2 10/28/2024 At any time in the past 12 m [facility], were you homeless or living in a senior care (including now)? Yes 10/28/2024 Personal Safety Answer Date Recorded Have you ever been in or are you currently in a harmful physical or emotional relationship or is someone making you feel afraid or unsafe? Denies 10/27/2024 Comments No Sex and Gender Information Value [...] Infection Onset Date Last Indicated Resolved Time Norovirus suspected 02/06/2025 02/06/2025 02/08/20 25 3:05 AM CDT Rotavirus suspected 02/06/2025 02/06/2025 02/08/20 25 3:05 AM CDT C. difficile suspected 02/06/2025 [...] documented as of this encounter Care Teams Study Assistant Relationship Specialty Start Date End Date No, Physician PCP - General 07/15/24 06/04/25 Unknown, Notinfile PCP - General 06/05/25 Marla Keene MD [address] IM BONE MARROW TRANSPLANT[address] [place] [address] Consulting Physician Medical Oncology 07/21/24 documented as of this encounter
--- NOTE | 2025-09-20 17:00 | ECG_ITS ---
Test Date: 2025-09-20 17:09:09 Measurements Intervals [place] Rate: 101 P: 43 PA: 161 QRS: 29 QRSD: 83 T: 59 QT: 354 QTc: 460 Interpretive Statements SINUS TACHYCARDIA BORDERLINE T WAVE ABNORMALITY- ANTERIOR LEADS BORDERLINE ECG No previous ECG available for comparison Electronically Signed On 09-21-2025 07:44:50 CDT by Jarrett De Los Santos D.O.
[2025-09-20 17:07] LABS: Hematocrit 37.8 % (37.0-47.0); Hemoglobin 12.1 g/dL (12.0-15.0); Immature Granulocyte Percent A 1.1 % (0-0.5); Lymphocytes Absolute Auto 1.69 K/mm3 (0.9-3.2); Mean Corpuscular HGB Conc 32.0 g/dl (32-36); Mean Corpuscular Hemoglobin 28.2 pg (26-34); Mean Corpuscular Volume 88.1 fl (80-100); Nucleated Red Blood Cells Absolute Auto 0.000 K/mm3 (0.0-0.012); Nucleated Red Blood Cells Perc 0.0 % (0.0-0.2); Platelet Count Result 283 k/mm3 (150-375); Red Blood Count 4.29 M/mm3 (4.2-5.4); White Blood Count 2.8 K/mm3 (4.5-10.0)
--- NOTE | 2025-09-20 17:20 | PC.NURSE ---
Patient dozes off intermittently but then asked for something for her Anxiety as soon as she wakens /starts coughing
--- NOTE | 2025-09-20 17:22 | PC.NURSE ---
Dr Villegas aware of patients request for something for Anxiety--no new orders at this time
[2025-09-20 17:23] LABS: Alanine Aminotransferase 35 U/L (6-35); Albumin Level 4.9 g/dL (3.5-5.1); Alkaline Phosphatase 233 U/L (38-126); Anion Gap 25 mmol/L (4-12); Aspartate Amino Transferase 115 U/L (14-36); Bilirubin,Total 0.7 mg/dL (0.2-1.3); Blood Urea Nitrogen 10 mg/dL (7-17); Calcium 9.1 mg/dL (8.4-10.2); Carbon Dioxide 17 mmol/L (22-30); Chloride 96 mmol/L (98-107); Creatine Kinase 1392 U/L (30-135); Estimated CRCL calculation 67 ml/min; Estimated Glomerular Filt Rate > 60; Glucose 98 mg/dL (65-110); Potassium 4.6 mmol/L (3.4-5.0); Sodium 138 mmol/L (137-145); Total Protein 8.1 g/dL (6.3-8.2)
[2025-09-20 17:27] LABS: Add Urine Microscopic? YES; Appearance Urine Clear (Clear); Glucose Urine UA Negative (Negative); Leukocyte Esterase Ur Negative LEU/UL (Negative); Nitrate Urine Negative (Negative); Non Pathogenic Casts 0-2; Specific Grav Ur 1.012 (1.001-1.035)
[2025-09-20 17:28] LABS: INR 1.1; Prothrombin Time 14.1 Seconds (11.1-14.7)
[2025-09-20 17:44] LABS: Acetaminophen < 10 ug/mL (10-30); Salicylate < 1.0 mg/dL (2-20)
[2025-09-20] MEDS: THIAMINE HCL 200 MG/2 ML VIAL 300 MG IV PUSH (17:44)
[2025-09-20] MEDS: MULTIVITAMINS THERAPEUTIC TAB (*BKC) 1 TABLET PO (17:44)
[2025-09-20] MEDS: LACTATED RINGERS 1,000 ML 999 ML IV CONT (17:44)
[2025-09-20] MEDS: DEXTROSE 5%/LACTATED RINGERS 1,000 ML 1000 ML IV CONT (17:45)
[2025-09-20 17:51] LABS: Partial Thromboplastin Time 25.5 Seconds (22.3-36.8)
[2025-09-20] MEDS: FOLIC ACID 1 MG/0.2 ML INJ IV PUSH (17:55)
[2025-09-20] MEDS: ONDANSETRON INJ 4 MG/2 ML VIAL IV PUSH ×2 (17:56→23:34)
[2025-09-20 18:08] LABS: Thyroid Stimulating Hormone Reflex 0.505 uIU/mL (0.465-4.68)
[2025-09-20 18:22] LABS: Cannabinoid Screen Urine Negative (Negative)
--- NOTE | 2025-09-20 19:19 | PC.NURSE ---
Patient stating that she feels like I'm going to have a seizure. Patient reports that she takes Keppra 500mg BID but has not taken it for several days. Julius Villegas made aware. Floor RN not available for report at this time. Floor charge will call back for report in 10-15 min. ED charge Suki made aware
[2025-09-20] MEDS: levETIRAcetam 1500MG/NACL100ML 1,500 MG/100 ML BAG 400 MG IVPB (19:24)
--- NOTE | 2025-09-20 20:21 | ADMGEN ---
This patient, Deisy Nam, was admitted to [facility] Surg Room 324-01. Patient/family oriented to hospital policies and general routines including ID bracelet, bed and alarms, visiting hours, pain management, procedures, bathroom and other care routines, personal items, smoking policy, room service/diet, and visiting hours. Information on how to activate the Rapid Response Team has been discussed. Patient/Family are encouraged to report perceived risks to care and to ask questions if they do not understand what they are told or what they should do.
--- NOTE | 2025-09-20 20:31 | PM.IMHP ---
H&P: HPI History of Present Illness Date/Time: 09/20/25 20:31 Chief Complaint: Does not feel well Narrative: 65-year-old female with a past medical history of alcoholism, acute lymphocytic leukemia/B-cell, bipolar disorder, TIAs, seizure disorder, IA who [facility] due to reported altered mental status. EMS reports that they had been called to evaluate the patient on the for similar symptoms and found the patient to be wrecking strongly of alcohol. At that time the patient was oriented and refused transport. Today the [facility] staff again called for altered mental status in stated that the patient had fever and high heart rate. When EMS arrived at the facility again the patient's smelled strongly of alcohol and was covered in urine. Patient states that she has been having some issues going on that have made her want to drink. She denies a history of prior heavy alcohol use and is adamant that she has only been drinking due to social stressors. She has been ordering alcohol through delivery services. EMS found empty 5th of vodka at her bedside. The patient had reported to the ER staff that she does did not feel good. She told ER staff that she felt like she was dying. The patient has been afebrile since presentation to our facility. She states that she has had a cough for the last 3 months since she got exposed to someone with pneumonia after arriving to the nursing facility. She reports a chronic cough since then but thinks it has been worsening the last couple of days. She has been having intermittent nausea vomiting. She reports that the oral Zofran that she has been prescribed by her physicians at [facility] does not work. She denies any hematemesis or coffee-ground emesis. She denies any chest pain. She denies any difficulty with urinary incontinence dysuria or hematuria. She states that she has been having some loose stools for couple of days. She denies any abdominal pain. The patient does have a history of seizures for approximately the last 7 years per her report. She has not been taking her medications in a missed at least 3 days dosing of Keppra and other medications. She reports to me that she is feeling extremely anxious and months her benzodiazepines. She states that no other medications besides her benzodiazepines work for her. Although the patient seems to provide fair history she avoids eye contact and has to be directed multiple times to perform tasks for physical examination. She is aware that she is at the hospital but thought that she was at a hospital that started with the letter G. She states that she moved here from [place] last year when she was diagnosed with acute B-cell leukemia. She moved here because her only daughter and grandson live here. She has been at a alf facility since her hospitalization at [facility]. She receives all of her care at [facility] and may have recently been admitted to [facility] for pneumonia in the last few months. The patient has recalcitrant answering question and somewhat uncooperative. This subsequently has limited history process. Review of Systems Review of Systems: 12 systems were reviewed with pertinent positives and negatives per HPI. Except as documented in the HPI, all other systems were reviewed and are negative. [facility] Past Medical History Medical History (Updated 09/21/25 @ 02:41 by Carissa Vera DO) B-cell acute lymphoblastic leukemia (2023) PTSD (post-traumatic stress disorder) Hypothyroidism Alcohol addiction Obstructive sleep apnea Bipolar disorder Seizure disorder Migraine headache CVA (cerebral vascular accident) Surgical History Surgical History (Updated 09/21/25 @ 02:40 by Carissa Vera DO) History of blepharoplasty History of foot surgery Hamm[place]oe History of left oophorectomy Due to endometriosis History of section Family History Family History (Updated 09/21/25 @ 02:26 by Carissa Vera DO) Other Unknown family medical history Social History Social History (Updated 09/21/25 @ 02:29 by Carissa Vera DO) Social History: The patient lived in [place] until she came to [place] for treatment of her B-cell acute lymphoblastic leukemia in 2023. 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 She has 1 daughter and 1 grandson. She reports she is a lifelong nonsmoker. She denies history of heavy alcohol use despite being actively in toxic a did at the time of EMS evaluation on the and on arrival to the hospital on the 20 September 2025. She denies history of illicit substance use. The patient states that she does have some college Education but it does not sound like that she has a bachelor's degree. Code status: Full code Surrogate decision maker: Daughter Smoking status: Never smoker Alcohol intake: current Substance use: never Lack of Transportation: No Lack of Food: Never True Current Housing: I Have Housing Concerned About Future Housing: No Difficulty Paying Gas/Electric Bills: No Difficulty Paying for Meds: No Currently Unemployed: No Education: Bachelor's Degree Difficulty w/ Childcare or Family Care: No Spiritual care concerns: No Meds Home Medications and Allergies Home Medications ?Medication ?Instructions ?Recorded ?Confirmed ?Type albuterol sulfate 90 mcg/actuation 2 puff inhalation Q4H PRN 09/20/25 09/20/25 History aerosol inhaler shortness of breath or wheezing aspirin 81 mg capsule 81 mg PO DAILY 09/20/25 09/20/25 History atorvastatin 40 mg tablet 40 mg PO QPM 09/20/25 09/20/25 History clonazepam 0.5 mg tablet 0.5 mg PO Q12H 09/20/25 09/20/25 History clonazepam 1 mg tablet 1 mg PO .@1200 09/20/25 09/20/25 History dapsone 100 mg tablet 100 mg PO DAILY 09/20/25 09/20/25 History dasatinib 70 mg tablet (Phyrago) 70 mg PO DAILY 09/20/25 09/20/25 History duloxetine 60 mg capsule,delayed 60 mg PO DAILY 09/20/25 09/20/25 History release fluticasone propionate 50 2 spray intranasal Q12H 09/20/25 09/20/25 History mcg/actuation nasal spray,suspension hydroxyzine HCl 25 mg tablet 25 mg PO TID PRN itching 09/20/25 09/20/25 History lamotrigine 150 mg tablet 150 mg PO Q12H 09/20/25 09/20/25 History levetiracetam 500 mg tablet 500 mg PO Q12H 09/20/25 09/20/25 History levothyroxine 75 mcg tablet 75 mcg PO DAILY 09/20/25 09/20/25 History loratadine 10 mg tablet (Allergy 10 mg PO DAILY 09/20/25 09/20/25 History Relief (loratadine)) olopatadine 0.1 % eye drops 1 drp EACH EYE BID PRN dry eyes 09/20/25 09/20/25 History ondansetron HCl 4 mg tablet 4 mg PO Q6H PRN nausea and vomiting 09/20/25 09/20/25 History pantoprazole 40 mg tablet,delayed 40 mg PO DAILY 09/20/25 09/20/25 History release ropinirole 0.5 mg tablet 0.5 mg PO HS 09/20/25 09/20/25 History sennosides 8.6 mg tablet (Laxative 8.6 mg PO BID PRN constipation 09/20/25 09/20/25 History (sennosides)) sucralfate 1 gram tablet 1 g PO QID 09/20/25 09/20/25 History trazodone 100 mg tablet 200 mg PO HS 09/20/25 09/20/25 History ursodiol 300 mg capsule 300 mg PO Q12H 09/20/25 09/20/25 History valacyclovir 500 mg tablet 500 mg PO DAILY 09/20/25 09/20/25 History Allergies Allergy/AdvReac Type Severity Reaction Status Date / Time trimethoprim Allergy Mild Unknown Verified 09/20/25 20:25 lithium Allergy Unknown Verified 09/20/25 20: Sulfa (Sulfonamide Allergy Unknown Verified 09/20/25 20:25 Antibiotics) Vital Signs Vital Signs - 24 hr 09/20/25 16:31 09/20/25 17:12 09/20/25 17:15 Temperature Pulse Rate 68 100 Respiratory Rate 16 Blood Pressure 149/70 H Pulse Oximetry 92 97 Oxygen Delivery Room Air Room Air 09/20/25 17:17 09/20/25 17:30 09/20/25 18:35 Temperature Pulse Rate 96 101 H 98 Respiratory Rate 17 17 13 Blood Pressure 153/73 H 155/85 H 142/68 H Pulse Oximetry 96 94 95 Oxygen Delivery 09/20/25 19:30 Temperature 97.8 F Pulse Rate 107 H Respiratory Rate 15 Blood Pressure 146/68 H Pulse Oximetry 98 Oxygen Delivery Exam Narrative: Weight 89.5 kg BMI 30.9 Const: Other: Chronically ill-appearing, well-developed well-nourished, disheveled HENMT: Other: Multiple missing teeth is unclear if the patient has any residual teeth are remaining dental caries Ms. She has not all the cooperative with exam, mucous membranes are dry, no oral pharyngeal erythema, she has dried brown material adherent to her tongue, head is normocephalic atraumatic Eyes: Other: No scleral icterus, pupils are equal and reactive, bilateral cataracts noted Neck: Other: No JVD, no thyromegaly, no lymphadenopathy Resp: Other: No wheezing, no crackles, no increased work of breathing, frequent nonproductive cough Cardio: Other: Mildly tachycardic, regular rhythm, no murmurs GI: Other: Obese, soft, nontender, large amounts of redundant skin in the abdomen and bilateral flank consistent with weight loss Back/Spine/Pelvis: Other: Mild thoracic kyphosis Skin: Other: Generalized pallor, non jaundice, hot to touch Neuro: Other: Patient is alert oriented to person, month, year and name of the current president, no obvious facial asymmetry, follow simple commands with repeated prompting, eye exam was difficult as patient avoids eye contact and looking at providers, no gross motor deficits noted of upper extremities during evaluation patient not cooperative in with evaluation of lower extremities. Extrem: Other: No clubbing, no cyanosis, no edema Psych: Appearance: disheveled Mental Status: mental status grossly normal Speech and movement: Normal speech and movement present and Restless speech present Affect: Indifferent affect present and Irritable affect present Attitude: Guarded attititude/behavior present, Avoids eye contact (attititude/behavior) and Refuses to answer (attititude/behavior) Thought process: Normal thought process present Insight: Fair insight present (Psych) and Poor insight present (Psych) Judgement: Poor judgement present (Psych) H&P: Results Labs Labs: Laboratory Tests 09/20/25 16:58 09/20/25 16:58 09/20/25 09/20/25 09/20/25 16:53 16:58 16:58 WBC 2.8 L RBC 4.29 Hgb 12.1 Hct 37.8 MCV 88.1 MCH 28.2 MCHC 32.0 RDW 16.8 H Plt Count 283 MPV 8.5 Immature Gran % (Auto) 1.1 H Neut % (Auto) 26.5 L Lymph % (Auto) 61.2 H Meigs % (Auto) 8.7 H Eos % (Auto) 1.1 Baso % (Auto) 1.4 H Lymph # (Auto) 1.69 Meigs # (Auto) 0.2 Eos # (Auto) 0.0 Baso # (Auto) 0.0 Abs Immat Gran (auto) 0.03 Absolute Neuts (auto) 0.7 L Absolute Nucleated RBC 0.000 Nucleated RBC % 0.0 PT 14.1 INR 1.1 APTT 25.5 Sodium 138 Potassium 4.6 Chloride 96 L Carbon Dioxide 17 L Anion Gap 25 H BUN 10 Creatinine 0.81 Estim Creat Clear Calc 67 Estimated GFR > 60 Glucose 98 Lactic Acid 2.6 H Calcium 9.1 Total Bilirubin 0.7 AST 115 H ALT 35 Alkaline Phosphatase 233 H Total Creatine Kinase 1392 H Cancelled Total Protein 8.1 Albumin 4.9 TSH (Reflex) 0.505 Urine Color Yellow Urine Appearance Clear Urine pH 5.0 Ur Specific [place] 1.012 Urine Protein 2+ H Urine Glucose (UA) Negative Urine Ketones 3+ H Ur Blood (Man) 2+ H Urine Nitrate Negative Urine Bilirubin Negative Urine Urobilinogen 0.2 Leukocyte Esterase Rfl Negative Urine RBC 0-2 Urine WBC 0-5 Ur Squamous Epith Cells None seen Urine Bacteria None seen Urine Casts 0-2 Salicylates < 1.0 L Urine Opiates Screen Negative Urine Methadone Screen Negative Acetaminophen < 10 L Ur Barbiturates Screen Negative Ur Phencyclidine Scrn Negative Ur Amphetamine Screen Negative U Benzodiazepines Scrn Negative Urine Cocaine Screen Negative U Cannabinoids Screen Negative Ethyl Alcohol 399 H* Impressions Chest X-Ray 09/20/25 17:30 Impression: No acute cardiopulmonary abnormality. Head CT 09/20/25 17:43 Impression: 1.No acute intracranial abnormality. EKG: Assessment and Plan Assessment and plan (1) Rhabdomyolysis: Qualifiers: Rhabdomyolysis type: non-traumatic Qualified Code(s): M62.82 - Rhabdomyolysis Code(s): M62.82 - Rhabdomyolysis Status: Acute (2) Alcoholic ketoacidosis: Code(s): E87.29 - Other acidosis Status: Acute (3) Lactic acidosis: Code(s): E87.20 - Acidosis, unspecified Status: Acute (4) Alcoholic intoxication: Qualifiers: Complication of substance-induced condition: with unspecified complication Qualified Code(s): F10.929 - Alcohol use, unspecified with intoxication, unspecified Code(s): F10.929 - Alcohol use, unspecified with intoxication, unspecified Status: Acute (5) Leukopenia: Qualifiers: Leukopenia type: neutropenia Neutropenia type: unspecified Qualified Code(s): D70.9 - Neutropenia, unspecified Code(s): D72.819 - Decreased white blood cell count, unspecified Status: Acute (6) B-cell acute lymphoblastic leukemia: Onset Date: 2023 Code(s): C91.00 - Acute lymphoblastic leukemia not having achieved remission Status: Acute (7) Seizure disorder: Code(s): G40.909 - Epilepsy, unspecified, not intractable, without status epilepticus Status: Acute (8) Bipolar disorder: Qualifiers: Active/Remission status: currently active Current bipolar episode type: depressed Current episode severity: unspecified Qualified Code(s): F31.30 - Bipolar disorder, current episode depressed, mild or moderate severity, unspecified Code(s): F31.9 - Bipolar disorder, unspecified Status: Acute Plan The patient may was [facility] from [facility] due to fever and tachycardia. However patient despite having neutropenia has no evidence of fever. She is mildly tachycardic but no obvious source of infection. As she does not have a fever here currently going to hold off on starting patient on any antibiotics as I think the patient has other reasons for tachycardia which include volume depletion/dehydration, rhabdomyolysis and alcoholic ketosis. The patient is actively intoxicated on arrival to the ER and has low serum bicarb and lactic acidosis. Patient is not in alcoholic drawl. However will place patient on alcohol withdrawal protocol to monitor for when she does start to clear her alcohol from her system. Will place her on Ativan p.o. as needed for CIWA scores 8-15 and diazepam IV for CIWA scores greater than 15. She did received thiamin 300 mg IV and dextrose containing fluids in the ER. She received a total of 2 L in IV fluid bolus 1 of which was LR the other was D5 LR. Will continue IV fluid hydration at 200 mL hour for the 1st 12 hours given rhabdomyolysis. Rhabdomyolysis is from patient refusing to get out of bed for the last 3 days. Will repeat CK, CMP monitor strict I&O's and avoid nephrotoxic medications in the acute phase. Will re-evaluate fluid status in a.m.. Patient does have leukopenia baseline white count is not known but could be due to the patient's chronic chemotherapeutic agents. Patient is currently afebrile and I am less concerned for acute infection. Despite nursing staff home staff report of fever there have been no documented fever or corresponding documentation from the [facility] recording elevated temperatures. Will repeat CBC in a.m.. The patient does have evidence of neutropenia with lymphocytosis consistent with her history of ALL which again is the likely cause of leukopenia. Will repeat CBC in a.m.. Will resume the patient's home dapsone and Phyrago. Will resume the patient's home clonazepam, duloxetine and lamotrigine. Patient would benefit from outpatient titration of her psychiatric medications given her current mood. Patient received a loading dose of Keppra in the ER given that she had missed several days of Keppra dosing. Will resume home Keppra. Patient has been admitted as observation status. MEDICAL DECISION MAKING NARRATIVE -Spoke with the ED provider in detail regarding patient's evaluation, workup and management -Patient seen and examined at bedside -Collaborated with patient's nurse at the bedside in detail and addressed all concerns -Labs, electrolytes, radiology, investigations and test results personally reviewed and interpreted unless otherwise specified -ED/Consult/Nursing/Ancilliary notes on the chart reviewed and appreciated -Spoke with patient at bedside and diagnosis and plan of care was discussed. All questions answered. Quality VTE Prophylaxis VTE prophylaxis: pharmacologic ordered (Lovenox 40 mg subQ daily.) Hospitalist [facility] Advance Care Plan I have confirmed that the patient's Advanced Care Plan is present, code status is documented, or surrogate decision maker is listed in patient medical record.: Yes Medication Reconciliation I have utilized all available resources to obtain, update and review the patients current medications (includes all prescriptions, OTC, herbals, cannabis, and nutritional supplements).: Yes
[2025-09-20] MEDS: LACTATED RINGERS 1,000 ML 200 ML IV CONT (20:44)
[2025-09-20] MEDS: LORazepam (*CRX) 1 MG TABLET 2 MG PO (20:51)
[2025-09-20 22:09] LABS: Anion Gap 19 mmol/L (4-12); Blood Urea Nitrogen 8 mg/dL (7-17); Calcium 8.8 mg/dL (8.4-10.2); Carbon Dioxide 19 mmol/L (22-30); Chloride 98 mmol/L (98-107); Creatine Kinase 1271 U/L (30-135); Estimated CRCL calculation 83 ml/min; Estimated Glomerular Filt Rate > 60; Glucose 105 mg/dL (65-110); Potassium 4.1 mmol/L (3.4-5.0); Sodium 136 mmol/L (137-145)
[2025-09-20 23:27] LABS: Influenza A QL RT-PCR Negative (Negative); Influenza B QL RT-PCR Negative (Negative); RSV RNA, RT-PCR Negative (Negative); SARS-CoV-2 RNA PCR Negative (Negative)
[2025-09-20] MEDS: SUCRALFATE 1 GM TABLET PO (23:32)
[2025-09-20] MEDS: ATORVASTATIN 40 MG TABLET PO (23:32)
[2025-09-20] MEDS: lamoTRIgine 50 MG TABLET PO (23:32)
[2025-09-20] MEDS: FLUTICASONE PROPIONATE 0.05% NA SPR 16 GM BTL (*BKC) 2 SPRAY NASAL (23:33)
[2025-09-20] MEDS: clonazePAM (*CRX) 0.5 MG TABLET PO (23:37)
[2025-09-21] VITALS (15 sets, daily range): BP systolic 127–149; BP diastolic 54–73; PULSE 78–189; RESP 16–17; TEMP 36.2–37.5; O2SAT 90–94
--- NOTE | 2025-09-21 | ECHO_ITS ---
Patient Info Name: Diesy Nam Age: 65 years : 1960 Gender: Female Ht: 67 in Wt: 197 lbs BSA: 2.08 m2 HR: 145 bpm BP: 146 / 67 mmHg Heart Rhythm: Atrial Fibrillation Technical Quality: Fair Exam Date: 09/21/2025 2:21 PM Patient Status: I Admit Date: 09/21/2025 Exam Type: CA echo doppler color flow Complete two-dimensional, color flow and Doppler transthoracic echocardiogram is performed. Staff Referring Physician: [employer] Driver: Sukhdeep Kramer III Attending Provider: Ivan Roe Summary 1. Complete two-dimensional, color flow and Doppler transthoracic echocardiogram is performed. 2. There is normal biventricular size and systolic function. 3. There are no significant valvular abnormalities. Left Ventricle The left ventricle is normal in size and systolic function. The left ventricular ejection fraction is visually estimated to be 60-65%. Right Ventricle The right ventricle is normal in size and systolic function. Left Atria The left atrium is mildly dilated. Right Atria The right atrium is mildly dilated. Atrial Septum The atrial septum is intact. Aortic Valve The aortic valve is trileaflet and opens well. There is no aortic regurgitation. Pulmonic Valve The pulmonic valve is grossly normal. There is no pulmonic regurgitation. Mitral Valve The mitral valve is normal. There is no mitral regurgitation. Tricuspid Valve The tricuspid valve is normal. There is trace tricuspid regurgitation. Pericardium/Pleural Pericardium is normal in appearance with no evidence for significant pericardial effusion. Inferior Vena Cava Inferior vena cava is not well visualized. Aorta The aortic root at the level of the sinus of Valsalva measures 3.2 cm in diameter. Left Ventricular Outflow Tract Name Value Normal LVOT 2D LVOT Diameter 2.1 cm LVOT Doppler LVOT Peak Velocity 147 cm/s LVOT Peak Gradient 9 mmHg LVOT Mean Gradient 5 mmHg LVOT VTI 33 cm LVOT VTI/AV VTI Ratio 0.7 LVOT Stroke Volume 109 ml LVOT CO 9.7 l/min LVOT CI 4.6 l/min/m2 Pulmonic Valve Name Value Normal PV Doppler PV Peak Velocity 165 cm/s PV Peak Gradient 11 mmHg PV Mean Gradient 6 mmHg Mitral Valve Name Value Normal MV Doppler MV Peak Gradient 9 mmHg MV Mean Gradient 4 mmHg MV Area (Cont Eq VTI) 3.2 cm2 MV Diastolic Function MV E Peak Velocity 116 cm/s MV A Peak Velocity 145 cm/s MV E/A 0.8 MV Decel Time (PW) 193 ms MV Annular TDI MV E/e' (Septal) 18.2 MV E/e' (Lateral) 8.3 MV E/e' (Average) 13.2 Tricuspid Valve Name Value Normal TV Regurgitation Doppler TR Peak Velocity 211 cm/s TR Peak Gradient 18 mmHg Estimated PAP/RSVP RA Pressure 10 mmHg <=5 PA Systolic Pressure 28 mmHg <36 RV Systolic Pressure 28 mmHg <36 TV Annular TDI TV Lateral Francine s' Velocity 21.5 cm/s >=9.5 Aortic Valve Name Value Normal AV Doppler AV Peak Velocity 249 cm/s AV Peak Gradient 21 mmHg AV Mean Gradient 11 mmHg AV VTI 48 cm AV Area (Cont Eq VTI) 2.3 cm2 >=3.0 AV Area (Cont Eq Sameer) 2.0 cm2 AV DI (Sameer) 0.59 AV Regurgitation 2D LVOT Area 3.3 cm2 Ventricles Name Value Normal LV Dimensions 2D/MM IVS Diastolic Thickness (2D) 0.9 cm 0.6-1.0 LVID Diastole (2D) 4.9 cm 3.8-5.2 LVIW Diastolic Thickness (2D) 1.1 cm 0.6-0.9 LVID Systole (2D) 3.4 cm 2.2-3.5 LVOT Diameter 2.1 cm LV Mass (2D Cubed) 174.63 g 67.00-162.00 LV Mass Index (2D Cubed) 84 g/m2 43-95 Relative Wall Thickness (2D) 0.45 <=0.42 LV Fractional Shortening/Ejection Fraction 2D/MM LV Fractional Shortening (2D) 30 % 27-45 LV EF (2D Teichholz) 57 % LV Diastolic Volume (4C MOD) 71 ml LV EF (4C MOD) 60 % LV Diastolic Volume (2C MOD) 60 ml LV EF (2C MOD) 61 % LV Diastolic Volume (BP MOD) 68 ml 46-106 LV Diastolic Volume Index (BP MOD) 33 ml/m2 29-61 LV Systolic Volume (BP MOD) 26 ml 14-42 LV Systolic Volume Index (BP MOD) 13 ml/m2 8-24 LV EF (BP MOD) 62 % 54-74 LV Diastolic Length (4C) 6.6 cm LV Systolic Length (4C) 5.7 cm LV Stroke Volume (4C MOD) 43 ml Atria Name Value Normal LA Dimensions LA Volume (4C A-L) 71 ml LA Volume (BP A-L) 82 ml RA Dimensions RA Systolic Major Mason Length (4C) 5.9 cm 2.2-2.8 RA Area (4C) 20.1 cm2 <=18.0 Report Signatures
[2025-09-21] MEDS: LACTATED RINGERS 1,000 ML 200 ML IV CONT (01:53)
[2025-09-21] MEDS: LEVOTHYROXINE SODIUM 75 MCG TABLET PO (05:29)
[2025-09-21] MEDS: clonazePAM (*CRX) 0.5 MG TABLET PO ×2 (05:29→17:10)
[2025-09-21] MEDS: ONDANSETRON INJ 4 MG/2 ML VIAL IV PUSH ×2 (05:29→09:36)
[2025-09-21 05:58] LABS: Hematocrit 32.3 % (37.0-47.0); Hemoglobin 10.2 g/dL (12.0-15.0); Immature Granulocyte Percent A 1.0 % (0-0.5); Lymphocytes Absolute Auto 1.94 K/mm3 (0.9-3.2); Mean Corpuscular HGB Conc 31.6 g/dl (32-36); Mean Corpuscular Hemoglobin 28.6 pg (26-34); Mean Corpuscular Volume 90.5 fl (80-100); Nucleated Red Blood Cells Absolute Auto 0.000 K/mm3 (0.0-0.012); Nucleated Red Blood Cells Perc 0.0 % (0.0-0.2); Platelet Count Result 186 k/mm3 (150-375); Red Blood Count 3.57 M/mm3 (4.2-5.4); White Blood Count 3.1 K/mm3 (4.5-10.0)
--- NOTE | 2025-09-21 06:02 | ECG_ITS ---
Test Date: 2025-09-21 06:12:27 Measurements Intervals [place] Rate: 143 P: 0 NE: 0 QRS: 22 QRSD: 79 T: 22 QT: 294 QTc: 455 Interpretive Statements ATRIAL FIBRILLATION WITH RAPID VENTRICULAR RESPONSE NONSPECIFIC ST & T-WAVE ABNORMALITY- INFERIOR LEADS ABNORMAL ECG No previous ECG available for comparison Electronically Signed On 09-21-2025 06:17:00 CDT by Jarrett De Los Santos D.O.
[2025-09-21] MEDS: METOPROLOL TARTRATE INJ 5 MG/5 ML VIAL IV PUSH ×2 (06:06→06:16)
[2025-09-21 06:21] LABS: Alanine Aminotransferase 34 U/L (6-35); Albumin Level 4.3 g/dL (3.5-5.1); Alkaline Phosphatase 184 U/L (38-126); Anion Gap 17 mmol/L (4-12); Aspartate Amino Transferase 111 U/L (14-36); Bilirubin,Total 0.8 mg/dL (0.2-1.3); Blood Urea Nitrogen 7 mg/dL (7-17); Calcium 8.9 mg/dL (8.4-10.2); Carbon Dioxide 17 mmol/L (22-30); Chloride 101 mmol/L (98-107); Creatine Kinase 1082 U/L (30-135); Estimated CRCL calculation 77 ml/min; Estimated Glomerular Filt Rate > 60; Glucose 99 mg/dL (65-110); Magnesium 1.8 mg/dL (1.6-2.3); Potassium 4.1 mmol/L (3.4-5.0); Sodium 135 mmol/L (137-145); Total Protein 6.8 g/dL (6.3-8.2)
--- NOTE | 2025-09-21 06:25 | ECG_ITS ---
Test Date: 2025-09-21 06:46:33 Measurements Intervals [place] Rate: 84 P: 64 VA: 157 QRS: 20 QRSD: 84 T: 66 QT: 384 QTc: 456 Interpretive Statements SINUS RHYTHM NORMAL ECG Compared to ECG 09/21/2025 06:12:27 Atrial fibrillation no longer present Electronically Signed On 09-21-2025 07:45:37 CDT by Jarrett De Los Santos D.O.
--- NOTE | 2025-09-21 06:34 | PM.EVENT ---
Event Note Event Note Event Note: 09/21/2025 at 05:50 Nursing staff called because the patient had flipped into AFib RVR around 05:30. Patient had denied prior episodes of AFib at the time of my initial interview. Patient's heart rates were ranging between 140 and 180. Patient's blood pressures were stable in the mid 140 systolic over 90s The patient also started having vomiting at that time and dry heaves. I gave an order for stat EKG and IV Lopressor 5 mg IV push to repeat dose in 10 minutes if rhythm still AFib and if blood pressure stable. Repeat blood pressure was still in the 140s systolic and heart rate was 130s to 140s. I was at bedside to evaluate patient. 5 minutes after the 2nd dose of IV Lopressor the patient converted back to sinus rhythm with a rate between 80 and 90. Repeat the labs had returned by that point which demonstrated magnesium of 1.8 normal potassium greater than 4 and normal phosphorus. 2 g magnesium sulfate rider was ordered. Will also repeat EKG to confirm returned to sinus rhythm although this can be seen on telemetry. Will order echocardiogram to further evaluate patient's baseline cardiac structure and function. 30 minutes spent in critical care activities. Due to a high probability of clinically significant, life threatening deterioration, the patient required my highest level of preparedness to intervene emergently and I personally spent this critical care time directly and personally managing the patient. This critical care time included obtaining a history; examining the patient; pulse oximetry; ordering and review of studies; arranging urgent treatment with development of a management plan; evaluation of patient's response to treatment; frequent reassessment; and discussions with other providers. It was exclusive of separately billable procedures and treating other patients and teaching time. Please see Assessment and Plan section and the rest of the note for further information on patient assessment and treatment.
[2025-09-21] MEDS: LACTATED RINGERS 1,000 ML 125 ML IV CONT ×3 (07:50→23:52)
[2025-09-21] MEDS: MAGNESIUM SULF 2 GM/WATER 50ML 2 GM/50 ML BAG IVPB (08:20)
[2025-09-21] MEDS: LORazepam (*CRX) 1 MG TABLET 2 MG PO (08:35)
[2025-09-21] MEDS: ENOXAPARIN 40 MG/0.4 ML SYRINGE SUB-Q (09:22)
[2025-09-21] MEDS: lamoTRIgine 50 MG TABLET PO ×2 (11:27→20:43)
[2025-09-21] MEDS: PANTOPRAZOLE 40 MG TABLET PO (11:28)
[2025-09-21] MEDS: SUCRALFATE 1 GM TABLET PO ×4 (11:28→20:40)
[2025-09-21] MEDS: clonazePAM (*CRX) 0.5 MG TABLET 1 MG PO (11:41)
--- NOTE | 2025-09-21 14:38 | PM.IMPN ---
Progress Note: A&P Assessment and Plan (1) Rhabdomyolysis: Qualifiers: Rhabdomyolysis type: non-traumatic Qualified Code(s): M62.82 - Rhabdomyolysis Code(s): M62.82 - Rhabdomyolysis Status: Acute Assessment and Plan: The patient sent in from Assisted Living facility due to fever and tachycardia. She was intoxicated with alcohol level of 399. Total CK was 1271. She received a total of 2 L in IV fluid bolus: 1L of LR and 1L D5LR. Continue IV fluid hydration for rhabdomyolysis. Rhabdomyolysis is from patient refusing to get out of bed for the last 3 days Follow total CK Stop Lipitor. (2) Leukopenia: Qualifiers: Leukopenia type: neutropenia Neutropenia type: unspecified Qualified Code(s): D70.9 - Neutropenia, unspecified Code(s): D72.819 - Decreased white blood cell count, unspecified Status: Acute Assessment and Plan: Lactic 2.6. No fever documented here. Leukopenic with WBC 2800 (ANC 742) UA not consistent with UTI. CXR clear. No BCx drawn Repeat lactic acid normal. Abx not started on admission. Repeat WBC 3100 (ANC 626) Neutropenic precautions. Monitor off abx (3) Lactic acidosis: Code(s): E87.20 - Acidosis, unspecified Status: Acute Assessment and Plan: As above (4) Alcoholic intoxication: Qualifiers: Complication of substance-induced condition: with unspecified complication Qualified Code(s): F10.929 - Alcohol use, unspecified with intoxication, unspecified Code(s): F10.929 - Alcohol use, unspecified with intoxication, unspecified Status: Acute Assessment and Plan: Patient is actively intoxicated on arrival to the ER with low serum bicarb, lactic acidosis and 3+ urine ketones. Patient is not in alcoholic withdrawal on admission. She did received thiamin 300 mg IV and dextrose containing fluids in the ER. CIWA protocol started. Continue Thiamine, folate. Benzodiapepines as needed for elevated CIWA score. 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 Baseline WBC is unknown but could be due to the patient's chronic chemotherapeutic agents. The patient does have evidence of neutropenia with lymphocytosis consistent with her history of ALL which again is the likely cause of leukopenia. Continue the patient's home dapsone and Phyrago. Follow CBC (7) Seizure disorder: Code(s): G40.909 - Epilepsy, unspecified, not intractable, without status epilepticus Status: Acute Assessment and Plan: Patient received a loading dose of Keppra in the ER given that she had missed several days of Keppra dosing. Continue home Keppra. (8) Bipolar disorder: Qualifiers: Active/Remission status: currently active Current bipolar episode type: depressed Current episode severity: unspecified Qualified Code(s): F31.30 - Bipolar disorder, current episode depressed, mild or moderate severity, unspecified Code(s): F31.9 - Bipolar disorder, unspecified Status: Acute Assessment and Plan: Mood stable. Continue her home clonazepam, duloxetine and lamotrigine. Patient would benefit from outpatient titration of her psychiatric medications Plan DVT Prophylaxis - lovenox Code status - Full Subjective Date/time seen: 09/21/25 14:38 Interval history: 65yo female with alcoholism, acute lymphocytic leukemia/B-cell, bipolar disorder, TIAs, seizure disorder, CAD s/p MN who was brought in from the facility via EMS due to reported altered mental status. Patient feels tired and weak. She lives at an assisted living. SHe declines to say how much alcohol she drinks and how often she drinks. No CP. Cough productive of clear sputum. Also having diarrhea off and on for over a month. She has up to 3BMs on days with diarrhea. Exam Narrative: AF 99.0 149/69 94 17 90% ra Gen - NARD Chest - coarse BS bilaterally. nml RR CV - RRR S1/S2. Tele showing AFib this morning but now normal sinus. Abd - Soft, NT/ND, Positive BS Ext - No pedal edema. 2+ DP pulses bilaterally. Psych - Nml mood and affect. no tremors or diaphoresis. Skin - Warm and dry Objective Data Vital Signs Vital Signs: Vital Signs - 24 hr 09/20/25 16:31 09/20/25 17:12 09/20/25 17:15 Temperature Pulse Rate 68 100 Pulse Rate [Monitor] Respiratory Rate 16 Blood Pressure 149/70 H Pulse Oximetry 92 97 Oxygen Delivery Room Air Room Air 09/20/25 17:17 09/20/25 17:30 09/20/25 18:35 Temperature Pulse Rate 96 101 H 98 Pulse Rate [Monitor] Respiratory Rate 17 17 13 Blood Pressure 153/73 H 155/85 H 142/68 H Pulse Oximetry 96 94 95 Oxygen Delivery 09/20/25 19:30 09/20/25 21:46 09/20/25 22:18 Temperature 97.8 F 98.0 F Pulse Rate 107 H 95 Pulse Rate [Monitor] Respiratory Rate 15 16 Blood Pressure 146/68 H 146/67 H Pulse Oximetry 98 96 93 Oxygen Delivery Room Air 09/20/25 22:40 09/21/25 00:00 09/21/25 04:00 Temperature Pulse Rate 111 H 100 Pulse Rate [Monitor] Respiratory Rate Blood Pressure Pulse Oximetry Oxygen Delivery Room Air 09/21/25 05:00 09/21/25 05:45 09/21/25 06:06 Temperature 97.2 F L 98.2 F Pulse Rate 100 189 H 189 H Pulse Rate [Monitor] Respiratory Rate 16 16 Blood Pressure 140/58 L 141/73 H Pulse Oximetry 94 93 Oxygen Delivery 09/21/25 06:16 09/21/25 08:00 09/21/25 08:00 Temperature Pulse Rate 145 H Pulse Rate [Monitor] 94 Respiratory Rate Blood Pressure Pulse Oximetry Oxygen Delivery Room Air 09/21/25 08:00 09/21/25 12:00 09/21/25 12:00 Temperature Pulse Rate 99 104 H Pulse Rate [Monitor] 94 Respiratory Rate Blood Pressure Pulse Oximetry Oxygen Delivery 09/21/25 14:00 Temperature 99 F Pulse Rate 94 Pulse Rate [Monitor] Respiratory Rate 17 Blood Pressure 149/69 H Pulse Oximetry 90 Oxygen Delivery Intake/Output Intake/Output: Intake & Output 09/18/25 09/19/25 09/20/25 09/21/25 23:59 23:59 23:59 23:59 Intake Total 2100 2798.0 Output Total 200 Balance 1900 2798.0 Meds/Results Medications: Active Medications Generic Name Dose Route Start Last Admin Trade Name Freq PRN Reason Stop Dose Admin Acetaminophen 650 mg 09/20/25 18:54 Acetaminophen 325 Mg Tablet PO Q4H PRN Mild Pain (1-3) or Fever Al Hydrox/Mg Hydrox/Simethicone 30 ml 09/20/25 21:02 Mag Hydrox/Al Hydrox/Simeth 30 Ml Udc PO Q6H PRN Indigestion Albuterol 2 puff 09/20/25 22:27 Albuterol Sulfate (*Sp) Aerosol 1 Puff INHALATION Q4H PRN Shortness Of Breath Or Wheezing Aspirin 81 mg 09/21/25 09:00 09/21/25 14:13 Aspirin 81 Mg Chewable Tablet PO Not Given DAILY DYLLAN Atorvastatin Calcium 40 mg 09/20/25 22:40 09/20/25 23:32 Atorvastatin 40 Mg Tablet PO 40 mg On Hold: 09/21/25 14:06 QPM DYLLAN Administration Clonazepam 0.5 mg 09/20/25 22:30 09/21/25 05:29 Clonazepam (*Crx) 0.5 Mg Tablet PO 0.5 mg 0600,1800 DYLLAN Administration Clonazepam 1 mg 09/21/25 12:00 09/21/25 11:41 Clonazepam (*Crx) 0.5 Mg Tablet PO 1 mg 1200 DYLLAN Administration Dapsone 100 mg 09/21/25 09:00 09/21/25 14:14 Dapsone 25 Mg Tablet PO Not Given DAILY [facility] Diazepam 10 mg 09/20/25 20:07 Diazepam Inj (*Crx) 10 Mg/2 Ml Syringe IV PUSH Q2H PRN CIWA > 15 Docusate Sodium 100 mg 09/20/25 21:02 Docusate Sodium 100 Mg Capsule PO Q12H PRN Constipation Duloxetine HCl 60 mg 09/21/25 09:00 09/21/25 14:14 Duloxetine Hcl 60 Mg Capsule.Dr PO Not Given DAILY [facility] Enoxaparin Sodium 40 mg 09/21/25 09:00 09/21/25 09:22 Enoxaparin 40 Mg/0.4 Ml Syringe SUB-Q 40 mg DAILY DYLLAN Administration Fluticasone Propionate 2 spray 09/20/25 22:30 09/21/25 14:14 Fluticasone Propionate 0.05% Na Spr 16 Gm Btl (*Bkc) NASAL Not Given Q12HR DYLLAN Folic Acid 1 mg 09/21/25 09:00 09/21/25 14:14 Folic Acid 1 Mg Tablet PO Not Given DAILY [facility] Hydroxyzine HCl 25 mg 09/20/25 22:27 Hydroxyzine Hcl 25 Mg Tablet PO TID PRN Itching Lactated Ringer's 1,000 mls @ 125 mls/hr 09/20/25 18:55 09/21/25 07:50 Lr - Lactated Ringers Iv IV CONT 125 mls/hr .Q8H DYLLAN Administration Lamotrigine 100 mg 09/20/25 22:45 09/21/25 11:27 Lamotrigine 100 Mg Tablet PO 100 mg Q12HR DYLLAN Administration Lamotrigine 50 mg 09/20/25 22:45 09/21/25 11:27 Lamotrigine 50 Mg Tablet PO 50 mg Q12HR DYLLAN Administration Levetiracetam 500 mg 09/21/25 09:00 09/21/25 11:27 Levetiracetam 500 Mg Tablet PO 500 mg Q12HR DYLLAN Administration Levothyroxine Sodium 75 mcg 09/21/25 06:30 09/21/25 05:29 Levothyroxine Sodium 75 Mcg Tablet PO 75 mcg DAILY@0630 DYLLAN Administration Loratadine 10 mg 09/21/25 09:00 09/21/25 14:14 Loratadine 10 Mg Tablet PO Not Given DAILY DYLLAN Lorazepam 2 mg 09/20/25 20:07 09/21/25 08:35 Lorazepam (*Crx) 1 Mg Tablet PO 2 mg Q2H PRN Administration CIWA>8, HR>100, or DBP>100 Metoprolol Tartrate 5 mg 09/21/25 06:00 09/21/25 06:16 Metoprolol Tartrate Inj 5 Mg/5 Ml Vial IV PUSH 5 mg Q10M PRN Administration SBP/HR >100, AFIB Miscellaneous Information 1 each 09/21/25 00:01 Phyrago Is Nonform; Can Pt Use From Home XX 10/21/25 00:00 CLARIFY DYLLAN Multivitamins/Calcium 1 tablet 09/21/25 09:00 09/21/25 14:14 Therapeutic Multivitamins/Minerals Tab (*Bkc) PO Not Given DAILY DYLLAN Non-Formulary Medication 70 mg 09/21/25 09:00 Dasatinib [Phyrago] PO 10/21/25 08:59 DAILY DYLLAN Olopatadine HCl 1 drop 09/20/25 22:27 Olopatadine 0.1% Ophth Soln 5 Ml Btl EACH EYE BID PRN dry eyes Ondansetron HCl 4 mg 09/20/25 18:54 09/21/25 09:36 Ondansetron Inj 4 Mg/2 Ml Vial IV PUSH 4 mg Q4H PRN Administration Nausea Pantoprazole Sodium 40 mg 09/21/25 09:00 09/21/25 11:28 Pantoprazole 40 Mg Tablet PO 40 mg DAILY DYLLAN Administration Perflutren Lipid Microsphere 0 ml 09/21/25 06:25 Perflutren Lipid Microspheres 1.5 Ml Vial Diluted To 10 Ml Total Volume IV PUSH 09/24/25 06:26 ONCE PRN adequate visualization Protocol Ropinirole HCl 0.5 mg 09/21/25 21:00 Ropinirole Hcl 0.5 Mg Tablet PO HS DYLLAN Sucralfate 1 gm 09/20/25 22:40 09/21/25 14:09 Sucralfate 1 Gm Tablet PO 1 gm QID DYLLAN Administration Thiamine HCl 100 mg 09/21/25 09:00 09/21/25 14:14 Thiamine Hcl 100 Mg Tablet PO Not Given DAILY DYLLAN Trazodone HCl 200 mg 09/20/25 22:40 09/20/25 23:32 Trazodone Hcl 50 Mg Tablet PO 200 mg HS DYLLAN Administration Ursodiol 300 mg 09/20/25 22:30 09/21/25 14:15 Ursodiol 300 Mg Capsule PO Not Given Q12HR DYLLAN Valacyclovir HCl 500 mg 09/21/25 09:00 09/21/25 14:15 Valacyclovir Hcl 500 Mg Tablet PO Not Given DAILY [facility] Radiology Results: ITS Impressions Chest X-Ray 09/20/25 17:30 Impression: No acute cardiopulmonary abnormality. Head CT 09/20/25 17:43 Impression: 1.No acute intracranial abnormality. Labs Labs: Laboratory Results - last 24 hr 09/20/25 09/20/25 09/20/25 16:53 16:58 16:58 WBC 2.8 L RBC 4.29 Hgb 12.1 Hct 37.8 MCV 88.1 MCH 28.2 MCHC 32.0 RDW 16.8 H Plt Count 283 MPV 8.5 Immature Gran % (Auto) 1.1 H Neut % (Auto) 26.5 L Lymph % (Auto) 61.2 H [place] % (Auto) 8.7 H Eos % (Auto) 1.1 Baso % (Auto) 1.4 H Lymph # (Auto) 1.69 [place] # (Auto) 0.2 Eos # (Auto) 0.0 Baso # (Auto) 0.0 Abs Immat Gran (auto) 0.03 Absolute Neuts (auto) 0.7 L Absolute Nucleated RBC 0.000 Nucleated RBC % 0.0 PT 14.1 INR 1.1 APTT 25.5 Sodium 138 Potassium 4.6 Chloride 96 L Carbon Dioxide 17 L Anion Gap 25 H BUN 10 Creatinine 0.81 Estim Creat Clear Calc 67 Estimated GFR > 60 Glucose 98 POC Capillary Glucose Lactic Acid 2.6 H Calcium 9.1 Phosphorus Magnesium Total Bilirubin 0.7 AST 115 H ALT 35 Alkaline Phosphatase 233 H Total Creatine Kinase 1392 H Cancelled Total Protein 8.1 Albumin 4.9 TSH (Reflex) 0.505 Urine Color Yellow Urine Appearance Clear Urine pH 5.0 Ur Specific [place] 1.012 Urine Protein 2+ H Urine Glucose (UA) Negative Urine Ketones 3+ H Ur Blood (Man) 2+ H Urine Nitrate Negative Urine Bilirubin Negative Urine Urobilinogen 0.2 Leukocyte Esterase Rfl Negative Urine RBC 0-2 Urine WBC 0-5 Ur Squamous Epith Cells None seen Urine Bacteria None seen Urine Casts 0-2 Salicylates < 1.0 L Urine Opiates Screen Negative Urine Methadone Screen Negative Acetaminophen < 10 L Ur Barbiturates Screen Negative Ur Phencyclidine Scrn Negative Ur Amphetamine Screen Negative U Benzodiazepines Scrn Negative Urine Cocaine Screen Negative U Cannabinoids Screen Negative Ethyl Alcohol 399 H* Influenza A (RT-PCR) Influenza B (RT-PCR) RSV (RT-PCR) SARS-CoV-2 RNA (RT-PCR) 09/20/25 09/20/25 09/21/25 21:40 22:44 04:48 WBC RBC Hgb Hct MCV MCH MCHC RDW Plt Count MPV Immature Gran % (Auto) Neut % (Auto) Lymph % (Auto) [place] % (Auto) Eos % (Auto) Baso % (Auto) Lymph # (Auto) [place] # (Auto) Eos # (Auto) Baso # (Auto) Abs Immat Gran (auto) Absolute Neuts (auto) Absolute Nucleated RBC Nucleated RBC % PT INR APTT Sodium 136 L Potassium 4.1 Chloride 98 Carbon Dioxide 19 L Anion Gap 19 H BUN 8 Creatinine 0.66 L Estim Creat Clear Calc 83 Estimated GFR > 60 Glucose 105 POC Capillary Glucose 97 Lactic Acid 1.8 Calcium 8.8 Phosphorus Magnesium Total Bilirubin AST ALT Alkaline Phosphatase Total Creatine Kinase 1271 H Total Protein Albumin TSH (Reflex) Urine Color Urine Appearance Urine pH Ur Specific [place] Urine Protein Urine Glucose (UA) Urine Ketones Ur Blood (Man) Urine Nitrate Urine Bilirubin Urine Urobilinogen Leukocyte Esterase Rfl Urine RBC Urine WBC Ur Squamous Epith Cells Urine Bacteria Urine Casts Salicylates Urine Opiates Screen Urine Methadone Screen Acetaminophen Ur Barbiturates Screen Ur Phencyclidine Scrn Ur Amphetamine Screen U Benzodiazepines Scrn Urine Cocaine Screen U Cannabinoids Screen Ethyl Alcohol Influenza A (RT-PCR) Negative Influenza B (RT-PCR) Negative RSV (RT-PCR) Negative SARS-CoV-2 RNA (RT-PCR) Negative 09/21/25 09/21/25 05:32 11:16 WBC 3.1 L RBC 3.57 L Hgb 10.2 L Hct 32.3 L MCV 90.5 MCH 28.6 MCHC 31.6 L RDW 16.5 H Plt Count 186 MPV 8.7 Immature Gran % (Auto) 1.0 H Neut % (Auto) 20.2 L Lymph % (Auto) 63.0 H [place] % (Auto) 14.9 H Eos % (Auto) 0.3 Baso % (Auto) 0.6 Lymph # (Auto) 1.94 [place] # (Auto) 0.5 Eos # (Auto) 0.0 Baso # (Auto) 0.0 Abs Immat Gran (auto) 0.03 Absolute Neuts (auto) 0.6 L Absolute Nucleated RBC 0.000 Nucleated RBC % 0.0 PT INR APTT Sodium 135 L Potassium 4.1 Chloride 101 Carbon Dioxide 17 L Anion Gap 17 H BUN 7 Creatinine 0.71 Estim Creat Clear Calc 77 Estimated GFR > 60 Glucose 99 POC Capillary Glucose 114 H Lactic Acid Calcium 8.9 Phosphorus 2.6 Magnesium 1.8 Total Bilirubin 0.8 AST 111 H ALT 34 Alkaline Phosphatase 184 H Total Creatine Kinase 1082 H Total Protein 6.8 Albumin 4.3 TSH (Reflex) Urine Color Urine Appearance Urine pH Ur Specific [place] Urine Protein Urine Glucose (UA) Urine Ketones Ur Blood (Man) Urine Nitrate Urine Bilirubin Urine Urobilinogen Leukocyte Esterase Rfl Urine RBC Urine WBC Ur Squamous Epith Cells Urine Bacteria Urine Casts Salicylates Urine Opiates Screen Urine Methadone Screen Acetaminophen Ur Barbiturates Screen Ur Phencyclidine Scrn Ur Amphetamine Screen U Benzodiazepines Scrn Urine Cocaine Screen U Cannabinoids Screen Ethyl Alcohol Influenza A (RT-PCR) Influenza B (RT-PCR) RSV (RT-PCR) SARS-CoV-2 RNA (RT-PCR)
[2025-09-21] MEDS: diazePAM INJ (*CRX) 10 MG/2 ML SYRINGE IV PUSH (15:18)
[2025-09-21] MEDS: PROMETHAZINE HCL 12.5 MG TABLET PO (18:02)
[2025-09-21] MEDS: FLUTICASONE PROPIONATE 0.05% NA SPR 16 GM BTL (*BKC) 2 SPRAY NASAL (20:43)
[2025-09-22] VITALS (16 sets, daily range): BP systolic 138–150; BP diastolic 64–76; PULSE 70–95; RESP 16–20; TEMP 36.1–36.5; O2SAT 94–98
[2025-09-22] MEDS: LEVOTHYROXINE SODIUM 75 MCG TABLET PO (05:32)
[2025-09-22] MEDS: clonazePAM (*CRX) 0.5 MG TABLET PO ×2 (05:33→17:10)
[2025-09-22] MEDS: PROMETHAZINE HCL 12.5 MG TABLET PO ×2 (05:35→09:19)
[2025-09-22 05:44] LABS: Hematocrit 31.1 % (37.0-47.0); Hemoglobin 9.7 g/dL (12.0-15.0); Immature Granulocyte Percent A 0.7 % (0-0.5); Lymphocytes Absolute Auto 0.93 K/mm3 (0.9-3.2); Mean Corpuscular HGB Conc 31.2 g/dl (32-36); Mean Corpuscular Hemoglobin 28.7 pg (26-34); Mean Corpuscular Volume 92.0 fl (80-100); Nucleated Red Blood Cells Absolute Auto 0.000 K/mm3 (0.0-0.012); Nucleated Red Blood Cells Perc 0.0 % (0.0-0.2); Platelet Count Result 125 k/mm3 (150-375); Red Blood Count 3.38 M/mm3 (4.2-5.4)
[2025-09-22 06:20] LABS: White Blood Count 1.5 K/mm3 (4.5-10.0)
[2025-09-22 07:17] LABS: Alanine Aminotransferase 29 U/L (6-35); Albumin Level 3.5 g/dL (3.5-5.1); Alkaline Phosphatase 156 U/L (38-126); Anion Gap 6 mmol/L (4-12); Aspartate Amino Transferase 82 U/L (14-36); Bilirubin,Total 0.6 mg/dL (0.2-1.3); Blood Urea Nitrogen 6 mg/dL (7-17); Calcium 8.9 mg/dL (8.4-10.2); Carbon Dioxide 30 mmol/L (22-30); Chloride 96 mmol/L (98-107); Creatine Kinase 564 U/L (30-135); Estimated CRCL calculation 86 ml/min; Estimated Glomerular Filt Rate > 60; Glucose 108 mg/dL (65-110); Magnesium 2.0 mg/dL (1.6-2.3); Potassium 3.5 mmol/L (3.4-5.0); Sodium 132 mmol/L (137-145); Total Protein 5.8 g/dL (6.3-8.2); Vitamin B12 > 1000.0 pg/mL (239-931)
[2025-09-22] MEDS: LORazepam (*CRX) 1 MG TABLET 2 MG PO ×2 (09:32→21:01)
[2025-09-22] MEDS: SUCRALFATE 1 GM TABLET PO ×4 (10:40→21:44)
[2025-09-22] MEDS: lamoTRIgine 50 MG TABLET PO ×2 (10:40→21:43)
[2025-09-22] MEDS: ENOXAPARIN 40 MG/0.4 ML SYRINGE SUB-Q (10:41)
--- NOTE | 2025-09-22 10:49 | P.PNIM_ITS ---
Progress Note: A&P Assessment and Plan (1) Rhabdomyolysis: Qualifiers: Rhabdomyolysis type: non-traumatic Qualified Code(s): M62.82 - Rhabdomyolysis Code(s): M62.82 - Rhabdomyolysis Status: Acute Assessment and Plan: The patient sent in from [facility]isted [facility] facility due to fever and tachycardia. She was intoxicated with alcohol level of 399. Total CK was 1271. She received a total of 2 L in IV fluid bolus: 1L of LR and 1L D5LR. Rhabdomyolysis is from patient refusing to get out of bed for the last 3 days Lipitor stopped. TCK trending down to 564 today. Okay to stop IV fluids. Start PT/OT (2) Atrial fibrillation: Code(s): I48.91 - Unspecified atrial fibrillation Status: Acute Assessment and Plan: Patient developed AFib yesterday morning with HR 140-180 range. No hx of AFib. Treated with IV metoprolol and she converted to NSR (EKG was essentially normal). TSH normal. [id number] - at least 4 (age, gender, CVA) Echo showing EF 60-65% and no valvular disease. Tele showing no recurrent AFib. Consider VTE but no CP or SOB. Negative Homans. Add metoprolol. Add Eliquis. Continue tele (3) Leukopenia: Qualifiers: Leukopenia type: neutropenia Neutropenia type: unspecified Qualified Code(s): D70.9 - Neutropenia, unspecified Code(s): D72.819 - Decreased white blood cell count, unspecified Status: Acute Assessment and Plan: Lactic 2.6. No fever documented here. Leukopenic with WBC 2800 (ANC 742) UA not consistent with UTI. CXR clear. No BCx drawn Probably related to her cancer and/or chemo agents and/or alcohol and/or dapsone Repeat lactic acid normal. Abx not started on admission. Repeat WBC 1500 (ANC 283) Neutropenic precautions. Monitor off abx. Stop dasatinib. Hold dapsone (4) Lactic acidosis: Code(s): E87.20 - Acidosis, unspecified Status: Acute Assessment and Plan: As above (5) Alcoholic intoxication: Qualifiers: Complication of substance-induced condition: with unspecified complication Qualified Code(s): F10.929 - Alcohol use, unspecified with intoxication, unspecified Code(s): F10.929 - Alcohol use, unspecified with intoxication, unspecified Status: Acute Assessment and Plan: Patient was actively intoxicated on arrival to the ER with low serum bicarb, lactic acidosis and 3+ urine ketones. Patient was not in alcoholic withdrawal on admission. She received thiamin 300 mg IV and dextrose containing fluids in the ER. CIWA protocol started. CIWA with wide range from 3-13 Continue Thiamine, folate. She is on chronic clonazepam. Benzodiazepines as needed for elevated CIWA score. (6) Alcoholism: Code(s): F10.20 - Alcohol dependence, uncomplicated Status: Acute Assessment and Plan: Care coordination consulted for information about alcohol abuse. 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 Baseline WBC is unknown but could be due to the patient's chronic chemotherapeutic agents. The patient does have evidence of neutropenia with lymphocytosis consistent with her history of ALL which again is the likely cause of leukopenia. Will hold dasatinib for now. Neutropenic precautions. Hold dapsone Follow CBC (8) Seizure disorder: Code(s): G40.909 - Epilepsy, unspecified, not intractable, without status epilepticus Status: Acute Assessment and Plan: Patient received a loading dose of Keppra in the ER given that she had missed several days of Keppra dosing. Continue home Keppra. (9) Bipolar disorder: Qualifiers: Active/Remission status: currently active Current bipolar episode type: depressed Current episode severity: unspecified Qualified Code(s): F31.30 - Bipolar disorder, current episode depressed, mild or moderate severity, unspecified Code(s): F31.9 - Bipolar disorder, unspecified Status: Acute Assessment and Plan: Depressed mood. Continue her home clonazepam, duloxetine and lamotrigine. Patient would benefit from outpatient titration of her psychiatric medications (10) Obstructive sleep apnea: Code(s): G47.33 - Obstructive sleep apnea (adult) (pediatric) Status: Acute Assessment and Plan: Patient with ERIK. Auto-titrate BiPAP Plan Cough - patient with allergy symptoms and cough. CXR was clear. Continue Flonase. Add prn Robitussin. Add Mucinex and Xopenex scheduled. Debility - PT/OT DVT Prophylaxis - Eliquis Code status - Full Subjective Date/time seen: 09/22/25 10:49 Interval history: 65yo female with alcoholism, acute lymphocytic leukemia/B-cell, bipolar disorder, TIAs, seizure disorder, CAD s/p DC who was brought in from the facility via EMS due to reported altered mental status. Having nausea. Last bout of emesis was yesterday. Feels weak. Cough productive of clear sputum. Allergy symptoms for a month now. No chest pain. Not been out of bed. She states her doctor has been holding her dasatinib due to low counts. She has been told in the past that she has AFib. She denies CVA (that is listed in chart) but has had TIAs Exam Narrative: AF 97.1 150/64 75 16 94% ra Gen - NARD Chest - coarse BS bilaterally with expiratory wheeze. nml RR CV - RRR S1/S2. Tele showing no episodes of recurrent AFib. Abd - Soft, NT/ND, Positive BS Ext - No pedal edema. Negative Homans Psych - Depressed mood. no tremors or diaphoresis. Skin - Warm and dry Objective Data Vital Signs Vital Signs: Vital Signs - 24 hr 09/21/25 12:00 09/21/25 12:00 09/21/25 14:00 Temperature 99 F Pulse Rate 104 H 94 Pulse Rate [Monitor] 94 Respiratory Rate 17 Blood Pressure 149/69 H Pulse Oximetry 90 Oxygen Delivery 09/21/25 15:04 09/21/25 15:05 09/21/25 16:00 Temperature 99.5 F Pulse Rate 91 Pulse Rate [Monitor] 95 85 Respiratory Rate Blood Pressure 146/71 H 146/71 H Pulse Oximetry 91 Oxygen Delivery 09/21/25 16:00 09/21/25 20:00 09/21/25 20:49 Temperature Pulse Rate 85 78 Pulse Rate [Monitor] 81 Respiratory Rate Blood Pressure Pulse Oximetry Oxygen Delivery 09/21/25 20:49 09/21/25 22:07 09/22/25 00:00 Temperature 97.2 F L Pulse Rate 81 Pulse Rate [Monitor] 83 Respiratory Rate 16 Blood Pressure 127/54 L Pulse Oximetry 91 93 Oxygen Delivery Room Air 09/22/25 00:00 09/22/25 03:35 09/22/25 04:00 Temperature Pulse Rate 75 73 Pulse Rate [Monitor] 86 Respiratory Rate Blood Pressure Pulse Oximetry Oxygen Delivery 09/22/25 06:28 Temperature 97.1 F L Pulse Rate 75 Pulse Rate [Monitor] Respiratory Rate 16 Blood Pressure 150/64 H Pulse Oximetry 94 Oxygen Delivery Intake/Output Intake/Output: Intake & Output 09/19/25 09/20/25 09/21/25 09/22/25 23:59 23:59 23:59 23:59 Intake Total 2100 4975.7 300 Output Total 200 Balance 1900 4975.7 300 Meds/Results Medications: Active Medications Generic Name Dose Route Start Last Admin Trade Name Freq PRN Reason Stop Dose Admin Acetaminophen 650 mg 09/20/25 18:54 Acetaminophen 325 Mg Tablet PO Q4H PRN Mild Pain (1-3) or Fever Al Hydrox/Mg Hydrox/Simethicone 30 ml 09/20/25 21:02 Mag Hydrox/Al Hydrox/Simeth 30 Ml Udc PO Q6H PRN Indigestion Albuterol 2 puff 09/20/25 22:27 Albuterol Sulfate (*Sp) Aerosol 1 Puff INHALATION Q4H PRN Shortness Of Breath Or Wheezing Aspirin 81 mg 09/21/25 09:00 09/21/25 14:13 Aspirin 81 Mg Chewable Tablet PO Not Given DAILY DYLLAN Clonazepam 0.5 mg 09/20/25 22:30 09/22/25 05:33 Clonazepam (*Crx) 0.5 Mg Tablet PO 0.5 mg 0600,1800 DYLLAN Administration Clonazepam 1 mg 09/21/25 12:00 09/21/25 11:41 Clonazepam (*Crx) 0.5 Mg Tablet PO 1 mg 1200 DYLLAN Administration Dapsone 100 mg 09/21/25 09:00 09/21/25 14:14 Dapsone 25 Mg Tablet PO Not Given DAILY DYLLAN Docusate Sodium 100 mg 09/20/25 21:02 Docusate Sodium 100 Mg Capsule PO Q12H PRN Constipation Duloxetine HCl 60 mg 09/21/25 09:00 09/21/25 14:14 Duloxetine Hcl 60 Mg Capsule.Dr PO Not Given DAILY DYLLAN Enoxaparin Sodium 40 mg 09/21/25 09:00 09/22/25 10:41 Enoxaparin 40 Mg/0.4 Ml Syringe SUB-Q 40 mg DAILY DYLLAN Administration Fluticasone Propionate 2 spray 09/20/25 22:30 09/21/25 20:43 Fluticasone Propionate 0.05% Na Spr 16 Gm Btl (*Bkc) NASAL 2 spray Q12HR DYLLAN Administration Folic Acid 1 mg 09/21/25 09:00 09/21/25 14:14 Folic Acid 1 Mg Tablet PO Not Given DAILY DYLLAN Hydroxyzine HCl 25 mg 09/20/25 22:27 Hydroxyzine Hcl 25 Mg Tablet PO TID PRN Itching Lamotrigine 100 mg 09/20/25 22:45 09/22/25 10:40 Lamotrigine 100 Mg Tablet PO 100 mg Q12HR DYLLAN Administration Lamotrigine 50 mg 09/20/25 22:45 09/22/25 10:40 Lamotrigine 50 Mg Tablet PO 50 mg Q12HR DYLLAN Administration Levetiracetam 500 mg 09/21/25 09:00 09/22/25 10:40 Levetiracetam 500 Mg Tablet PO 500 mg Q12HR DYLLAN Administration Levothyroxine Sodium 75 mcg 09/21/25 06:30 09/22/25 05:32 Levothyroxine Sodium 75 Mcg Tablet PO 75 mcg DAILY@0630 DYLLAN Administration Loratadine 10 mg 09/21/25 09:00 09/21/25 14:14 Loratadine 10 Mg Tablet PO Not Given DAILY DLYLAN Lorazepam 2 mg 09/20/25 20:07 09/22/25 09:32 Lorazepam (*Crx) 1 Mg Tablet PO 2 mg Q2H PRN Administration CIWA>8, HR>100, or DBP>100 Metoprolol Tartrate 5 mg 09/21/25 06:00 09/21/25 06:16 Metoprolol Tartrate Inj 5 Mg/5 Ml Vial IV PUSH 5 mg Q10M PRN Administration SBP/HR >100, AFIB Miscellaneous Information 1 each 09/21/25 00:01 Phyrago Is Nonform; Can Pt Use From Home XX 10/21/25 00:00 CLARIFY DYLLAN Multivitamins/Calcium 1 tablet 09/21/25 09:00 09/21/25 14:14 Therapeutic Multivitamins/Minerals Tab (*Bkc) PO Not Given DAILY DYLLAN Non-Formulary Medication 70 mg 09/21/25 09:00 Dasatinib [Phyrago] PO 10/21/25 08:59 DAILY DYLLAN Olopatadine HCl 1 drop 09/20/25 22:27 Olopatadine 0.1% Ophth Soln 5 Ml Btl EACH EYE BID PRN dry eyes Ondansetron HCl 4 mg 09/20/25 18:54 09/21/25 09:36 Ondansetron Inj 4 Mg/2 Ml Vial IV PUSH 4 mg Q4H PRN Administration Nausea Pantoprazole Sodium 40 mg 09/21/25 09:00 09/21/25 11:28 Pantoprazole 40 Mg Tablet PO 40 mg DAILY DYLLAN Administration Perflutren Lipid Microsphere 0 ml 09/21/25 06:25 Perflutren Lipid Microspheres 1.5 Ml Vial Diluted To 10 Ml Total Volume IV PUSH 09/24/25 06:26 ONCE PRN adequate visualization Protocol Promethazine HCl 12.5 mg 09/21/25 16:30 09/22/25 09:19 Promethazine Hcl 12.5 Mg Tablet PO 12.5 mg Q4H PRN Administration Nausea And Vomiting Ropinirole HCl 0.5 mg 09/21/25 21:00 09/21/25 20:43 Ropinirole Hcl 0.5 Mg Tablet PO 0.5 mg HS DYLLAN Administration Sucralfate 1 gm 09/20/25 22:40 09/22/25 10:40 Sucralfate 1 Gm Tablet PO 1 gm QID DYLLAN Administration Thiamine HCl 100 mg 09/21/25 09:00 09/21/25 14:14 Thiamine Hcl 100 Mg Tablet PO Not Given DAILY DYLLAN Trazodone HCl 200 mg 09/20/25 22:40 09/21/25 20:41 Trazodone Hcl 50 Mg Tablet PO 200 mg HS DYLLAN Administration Ursodiol 300 mg 09/20/25 22:30 09/21/25 20:43 Ursodiol 300 Mg Capsule PO 300 mg Q12HR DYLLAN Administration Valacyclovir HCl 500 mg 09/21/25 09:00 09/21/25 14:15 Valacyclovir Hcl 500 Mg Tablet PO Not Given DAILY DYLLAN Radiology Results: ITS Impressions Chest X-Ray 09/20/25 17:30 Impression: No acute cardiopulmonary abnormality. Head CT 09/20/25 17:43 Impression: 1.No acute intracranial abnormality. Labs Labs: Laboratory Results - last 24 hr 09/21/25 09/21/2525 11:16 18:18 21:13 WBC RBC Hgb Hct MCV MCH MCHC RDW Plt Count MPV Immature Gran % (Auto) Neut % (Auto) Lymph % (Auto) [place] % (Auto) Eos % (Auto) Baso % (Auto) Lymph # (Auto) [place] # (Auto) Eos # (Auto) Baso # (Auto) Abs Immat Gran (auto) Absolute Neuts (auto) Absolute Nucleated RBC Nucleated RBC % Sodium Potassium Chloride Carbon Dioxide Anion Gap BUN Creatinine Estim Creat Clear Calc Estimated GFR Glucose POC Capillary Glucose 114 H 147 H 129 H Calcium Phosphorus Magnesium Total Bilirubin AST ALT Alkaline Phosphatase Total Creatine Kinase Total Protein Albumin Vitamin B12 Folate 09/22/25 09/22/25 09/22/25 00:28 05:26 05:47 WBC 1.5 L* RBC 3.38 L Hgb 9.7 L Hct 31.1 L MCV 92.0 MCH 28.7 MCHC 31.2 L RDW 16.4 H Plt Count 125 L MPV 9.3 Immature Gran % (Auto) 0.7 H Neut % (Auto) 18.9 L Lymph % (Auto) 60.8 H [place] % (Auto) 14.4 H Eos % (Auto) 3.9 Baso % (Auto) 1.3 H Lymph # (Auto) 0.93 [place] # (Auto) 0.2 Eos # (Auto) 0.1 Baso # (Auto) 0.0 Abs Immat Gran (auto) 0.01 Absolute Neuts (auto) 0.3 L* Absolute Nucleated RBC 0.000 Nucleated RBC % 0.0 Sodium 132 L Potassium 3.5 Chloride 96 L Carbon Dioxide 30 Anion Gap 6 BUN 6 L Creatinine 0.63 L Estim Creat Clear Calc 86 Estimated GFR > 60 Glucose 108 POC Capillary Glucose 121 H 129 H Calcium 8.9 Phosphorus 2.5 Magnesium 2.0 Total Bilirubin 0.6 AST 82 H ALT 29 Alkaline Phosphatase 156 H Total Creatine Kinase 564 H Total Protein 5.8 L Albumin 3.5 Vitamin B12 > 1000.0 H Folate 4.1
[2025-09-22] MEDS: APIXABAN 5 MG TABLET PO ×2 (12:24→21:40)
[2025-09-22] MEDS: FLUTICASONE PROPIONATE 0.05% NA SPR 16 GM BTL (*BKC) 2 SPRAY NASAL ×2 (12:25→21:45)
[2025-09-22] MEDS: guaiFENesin 12 HR 600 MG TABCR PO ×2 (12:25→21:43)
[2025-09-22] MEDS: METOPROLOL TARTRATE 25 MG TABLET PO ×2 (12:28→21:44)
[2025-09-22] MEDS: clonazePAM (*CRX) 0.5 MG TABLET 1 MG PO (14:16)
[2025-09-22] MEDS: ONDANSETRON INJ 4 MG/2 ML VIAL IV PUSH (21:01)
[2025-09-23] VITALS (19 sets, daily range): BP systolic 120–144; BP diastolic 53–76; PULSE 66–88; RESP 15–20; TEMP 36.3–36.8; O2SAT 95–100
[2025-09-23 05:44] LABS: Hematocrit 32.6 % (37.0-47.0); Hemoglobin 10.0 g/dL (12.0-15.0); Immature Granulocyte Percent A 1.1 % (0-0.5); Lymphocytes Absolute Auto 0.93 K/mm3 (0.9-3.2); Mean Corpuscular HGB Conc 30.7 g/dl (32-36); Mean Corpuscular Hemoglobin 28.6 pg (26-34); Mean Corpuscular Volume 93.1 fl (80-100); Nucleated Red Blood Cells Absolute Auto 0.000 K/mm3 (0.0-0.012); Nucleated Red Blood Cells Perc 0.0 % (0.0-0.2); Platelet Count Result 109 k/mm3 (150-375); Red Blood Count 3.50 M/mm3 (4.2-5.4)
--- NOTE | 2025-09-23 05:57 | PC.NURSE ---
RN walked in pt room asked how can I help you? patient addressed are you my nurse? i need Lorazepam. This nurse proceeds to ask why patient feels she needs medication and patient starts to list CIWA questions, stating she has a headache, tremors, nauseous,etc. Nurse made patient aware of other alternatives and patient made aware she has anxiety and needs Lorazepam, RN notified patient i will see what i can do. Notified provider of concerns of learning CIWA responses, no new orders at the moment, able to administer [place] clonazepam early if needed.
[2025-09-23 06:09] LABS: Anion Gap 5 mmol/L (4-12); Blood Urea Nitrogen 6 mg/dL (7-17); Calcium 8.8 mg/dL (8.4-10.2); Carbon Dioxide 28 mmol/L (22-30); Chloride 99 mmol/L (98-107); Estimated CRCL calculation 87 ml/min; Estimated Glomerular Filt Rate > 60; Glucose 113 mg/dL (65-110); Potassium 3.3 mmol/L (3.4-5.0); Sodium 132 mmol/L (137-145)
[2025-09-23] MEDS: LEVOTHYROXINE SODIUM 75 MCG TABLET PO (06:16)
[2025-09-23] MEDS: clonazePAM (*CRX) 0.5 MG TABLET PO ×2 (06:16→17:42)
[2025-09-23 06:24] LABS: White Blood Count 1.9 K/mm3 (4.5-10.0)
--- NOTE | 2025-09-23 09:21 | P.PNIM_ITS ---
Progress Note: A&P Assessment and Plan (1) Rhabdomyolysis: Qualifiers: Rhabdomyolysis type: non-traumatic Qualified Code(s): M62.82 - Rhabdomyolysis Code(s): M62.82 - Rhabdomyolysis Status: Acute Assessment and Plan: The patient sent in from [facility]isted Living facility due to fever and tachycardia. She was intoxicated with alcohol level of 399. Total CK was 1271. She received a total of 2 L in IV fluid bolus: 1L of LR and 1L D5LR. Rhabdomyolysis is from patient refusing to get out of bed for the last 3 days Patient states she was unable to get out of bed 2/2 alcohol intake Lipitor stopped. CK downtrended. IV fluids discontinued. PT/OT started. Patient remains asymptomatic denying muscle aches/pain. Renal function WNL. (2) Atrial fibrillation: Code(s): I48.91 - Unspecified atrial fibrillation Status: Acute Assessment and Plan: Patient developed AFib with HR 140-180 range on 09/21. No hx of AFib. Treated with IV metoprolol and she converted to NSR (EKG was essentially normal). TSH normal. [id number] - at least 4 (age, gender, CVA) Echo showing EF 60-65% and no valvular disease. Tele reviewed and again showing no recurrent AFib. Consider VTE but no CP or SOB. Negative Homans. Started on metoprolol and eliquis. Remains in sinus rhythm with normal HR. (3) Leukopenia: Qualifiers: Leukopenia type: neutropenia Neutropenia type: unspecified Qualified Code(s): D70.9 - Neutropenia, unspecified Code(s): D72.819 - Decreased white blood cell count, unspecified Status: Acute Assessment and Plan: Leukopenic with WBC 2800 (ANC 742) Lactic 2.6. Repeat lactic acid normal. No fever documented. UA not consistent with UTI. CXR clear. No BCx drawn. Denies nausea/vomiting and abdominal pain. Abdominal exam benign. Probably related to her cancer and/or chemo agents and/or alcohol and/or dapsone Abx not started on admission. Neutropenic precautions. Monitor off abx. Stop dasatinib. Hold dapsone Patient remains neutropenic however WBC slightly improving at 1.9 with ANC 0.5. Voicemail left with patients oncologist to discuss plan for chemo medications. Awaiting call back. 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 Baseline WBC is unknown but could be due to the patient's chronic chemotherapeutic agents. The patient does have evidence of neutropenia with lymphocytosis consistent with her history of ALL which again is the likely cause of leukopenia. Will hold dasatinib for now and dapsone. Neutropenic precautions. Follow CBC Voicemail left with patients oncologist to discuss plan for chemo medications. Awaiting call back. (6) Alcoholic intoxication: Qualifiers: Complication of substance-induced condition: with unspecified complication Qualified Code(s): F10.929 - Alcohol use, unspecified with intoxication, unspecified Code(s): F10.929 - Alcohol use, unspecified with intoxication, unspecified Status: Acute Assessment and Plan: Patient was actively intoxicated on arrival to the ER with low serum bicarb, lactic acidosis and 3+ urine ketones. Patient was not in alcoholic withdrawal on admission. She received thiamin 300 mg IV and dextrose containing fluids in the ER. CIWA protocol started. Continue Thiamine, folate. She is on chronic clonazepam. Benzodiazepines as needed for elevated CIWA score. CIWA staying at 2 on review Encouraged alcohol cessation and care coordination consulted (7) Seizure disorder: Code(s): G40.909 - Epilepsy, unspecified, not intractable, without status epilepticus Status: Acute Assessment and Plan: Patient received a loading dose of Keppra in the ER given that she had missed several days of Keppra dosing. Continue home Keppra. (8) Bipolar disorder: Qualifiers: Active/Remission status: currently active Current bipolar episode type: depressed Current episode severity: unspecified Qualified Code(s): F31.30 - Bipolar disorder, current episode depressed, mild or moderate severity, unspecified Code(s): F31.9 - Bipolar disorder, unspecified Status: Acute Assessment and Plan: Depressed mood. Continue her home clonazepam, duloxetine and lamotrigine. Patient would benefit from outpatient titration of her psychiatric medications Patient states that her klonopin dose has been incorrect since admission. Confirmed dosing with patients RN Adia at [facility] and patient is on 0.5 mg at 0600, 1 mg at noon, and 0.5mg at [address] Keene in 07/2025. Medication adjusted. (9) Obstructive sleep apnea: Code(s): G47.33 - Obstructive sleep apnea (adult) (pediatric) Status: Acute Assessment and Plan: Patient with ERIK. Auto-titrate BiPAP Time Spent With Patient Time with patient: 25 - 35 minutes Subjective Date/time seen: 09/23/25 09:21 Interval history: 65yo female with alcoholism, acute lymphocytic leukemia/B-cell, bipolar disorder, TIAs, seizure disorder, CAD s/p NV who was brought in from the facility via EMS due to reported altered mental status. Patient seen sitting up comfortably in her chair. Patient continues to endorse a slight cough that is nonproductive. She denies any associated shortness of breath. Patient has no other complaints denying chest pain, shortness a breath, palpitations, nausea/vomiting, abdominal pain, and dizziness/lightheadedness. Review of Systems Review of Systems: All systems reviewed & are unremarkable except as noted in HPI and below Exam Narrative: AF HR 78 RR 18 SpO2 100 BP 144/76 General: female in no acute respiratory distress who is nontoxic appearing, sitting up in chair HEENT: Normocephalic. Atraumatic. Extraocular movement intact. Sclera clear and anicteric. No facial asymmetry. Chest: Lungs are clear to auscultation bilaterally. No wheezes or crackles. CV: Heart was regular rate and rhythm. Abd: Abdomen was soft. Nontender. Nondistended. Positive bowel sounds. Ext: No clubbing, cyanosis, or edema. DP pulses bilaterally. Neuro: Patient is alert. Speech is clear. Objective Data Vital Signs Vital Signs: Vital Signs - 24 hr 09/22/25 12:00 09/22/25 12:00 09/22/25 12:28 Temperature Pulse Rate 95 92 Pulse Rate [Monitor] 95 Respiratory Rate Blood Pressure Pulse Oximetry Oxygen Delivery 09/22/25 14:00 09/22/25 15:04 09/22/25 15:04 Temperature 96.9 F L Pulse Rate 70 75 75 Pulse Rate [Monitor] Respiratory Rate 17 20 20 Blood Pressure 138/76 Pulse Oximetry 98 94 Oxygen Delivery Room Air 10/28/25 15:12 09/22/25 16:00 09/22/25 16:00 Temperature Pulse Rate 72 70 Pulse Rate [Monitor] 70 Respiratory Rate 20 Blood Pressure Pulse Oximetry Oxygen Delivery 09/22/25 20:00 09/22/25 20:00 09/22/25 20:42 Temperature Pulse Rate 82 Pulse Rate [Monitor] Respiratory Rate Blood Pressure Pulse Oximetry 96 Oxygen Delivery Room Air Room Air 09/22/25 20:42 09/22/25 20:47 09/22/25 21:24 Temperature 97.7 F Pulse Rate 74 90 90 Pulse Rate [Monitor] Respiratory Rate 18 18 19 Blood Pressure 150/74 H Pulse Oximetry 94 Oxygen Delivery 09/22/25 21:44 09/23/25 00:00 09/23/25 02:02 Temperature Pulse Rate 84 71 67 Pulse Rate [Monitor] Respiratory Rate 16 Blood Pressure Pulse Oximetry Oxygen Delivery 09/23/25 02:07 09/23/25 04:00 09/23/25 05:08 Temperature 98.2 F Pulse Rate 66 66 74 Pulse Rate [Monitor] Respiratory Rate 16 15 Blood Pressure 128/64 Pulse Oximetry 95 Oxygen Delivery 09/23/25 07:43 09/23/25 07:43 09/23/25 07:48 Temperature Pulse Rate 71 66 Pulse Rate [Monitor] Respiratory Rate 17 17 Blood Pressure Pulse Oximetry 97 Oxygen Delivery Room Air Intake/Output Intake/Output: Intake & Output 09/20/25 09/21/25 09/22/25 09/23/25 23:59 23:59 23:59 23:59 Intake Total 2100 4975.7 780 Output Total 200 Balance 1900 4975.7 780 Meds/Results Medications: Active Medications Generic Name Dose Route Start Last Admin Trade Name Freq PRN Reason Stop Dose Admin Acetaminophen 650 mg 09/20/25 18:54 Acetaminophen 325 Mg Tablet PO Q4H PRN Mild Pain (1-3) or Fever Al Hydrox/Mg Hydrox/Simethicone 30 ml 09/20/25 21:02 Mag Hydrox/Al Hydrox/Simeth 30 Ml Udc PO Q6H PRN Indigestion Albuterol 2 puff 09/20/25 22:27 Albuterol Sulfate (*Sp) Aerosol 1 Puff INHALATION Q4H PRN Shortness Of Breath Or Wheezing Apixaban 5 mg 09/22/25 11:10 09/22/25 21:40 Apixaban 5 Mg Tablet PO 5 mg Q12HR DYLLAN Administration Aspirin 81 mg 09/21/25 09:00 09/22/25 12:03 Aspirin 81 Mg Chewable Tablet PO Not Given DAILY DYLLAN Clonazepam 0.5 mg 09/20/25 22:30 09/23/25 06:16 Clonazepam (*Crx) 0.5 Mg Tablet PO 0.5 mg 0600,1800 DYLLAN Administration Clonazepam 1 mg 09/21/25 12:00 09/22/25 14:16 Clonazepam (*Crx) 0.5 Mg Tablet PO 1 mg 1200 DYLLAN Administration Dapsone 100 mg 09/21/25 09:00 09/22/25 12:03 Dapsone 25 Mg Tablet PO Not Given On Hold: 09/22/25 11:20 DAILY DYLLAN Docusate Sodium 100 mg 09/20/25 21:02 Docusate Sodium 100 Mg Capsule PO Q12H PRN Constipation Duloxetine HCl 60 mg 09/21/25 09:00 09/22/25 12:03 Duloxetine Hcl 60 Mg Capsule.Dr PO Not Given DAILY DYLLAN Fluticasone Propionate 2 spray 09/20/25 22:30 09/22/25 21:45 Fluticasone Propionate 0.05% Na Spr 16 Gm Btl (*Bkc) NASAL 2 spray Q12HR DYLLAN Administration Folic Acid 1 mg 09/21/25 09:00 09/22/25 12:03 Folic Acid 1 Mg Tablet PO Not Given DAILY DYLLAN Guaifenesin 600 mg 09/22/25 11:25 09/22/25 21:43 Guaifenesin 12 Hr 600 Mg Tabcr PO 600 mg Q12HR DYLLAN Administration Guaifenesin/Dextromethorphan 10 ml 09/22/25 11:09 Guaifenesin/Dextromethorphan 10 Ml Udc PO Q4H PRN Cough Hydroxyzine HCl 25 mg 09/20/25 22:27 Hydroxyzine Hcl 25 Mg Tablet PO TID PRN Itching Lamotrigine 100 mg 09/20/25 22:45 09/22/25 21:43 Lamotrigine 100 Mg Tablet PO 100 mg Q12HR DYLLAN Administration Lamotrigine 50 mg 09/20/25 22:45 09/22/25 21:43 Lamotrigine 50 Mg Tablet PO 50 mg Q12HR DYLLAN Administration Levalbuterol HCl 1.25 mg 09/22/25 14:00 09/23/25 07:39 Levalbuterol Neb 1.25 Mg/3 Ml INHALATION 1.25 mg Q6HRT DYLLAN Administration Levetiracetam 500 mg 09/21/25 09:00 09/22/25 21:43 Levetiracetam 500 Mg Tablet PO 500 mg Q12HR DYLLAN Administration Levothyroxine Sodium 75 mcg 09/21/25 06:30 09/23/25 06:16 Levothyroxine Sodium 75 Mcg Tablet PO 75 mcg DAILY@0630 DYLLAN Administration Loratadine 10 mg 09/21/25 09:00 09/22/25 12:03 Loratadine 10 Mg Tablet PO Not Given DAILY DYLLAN Lorazepam 2 mg 09/20/25 20:07 09/22/25 21:01 Lorazepam (*Crx) 1 Mg Tablet PO 2 mg Q2H PRN Administration CIWA>8, HR>100, or DBP>100 Metoprolol Tartrate 5 mg 09/21/25 06:00 09/21/25 06:16 Metoprolol Tartrate Inj 5 Mg/5 Ml Vial IV PUSH 5 mg Q10M PRN Administration SBP/HR >100, AFIB Metoprolol Tartrate 25 mg 09/22/25 21:00 09/22/25 21:44 Metoprolol Tartrate 25 Mg Tablet PO 25 mg Q12HR DYLLAN Administration Multivitamins/Calcium 1 tablet 09/21/25 09:00 09/22/25 12:03 Therapeutic Multivitamins/Minerals Tab (*Bkc) PO Not Given DAILY DYLLAN Olopatadine HCl 1 drop 09/20/25 22:27 Olopatadine 0.1% Ophth Soln 5 Ml Btl EACH EYE BID PRN dry eyes Ondansetron HCl 4 mg 09/20/25 18:54 09/22/25 21:01 Ondansetron Inj 4 Mg/2 Ml Vial IV PUSH 4 mg Q4H PRN Administration Nausea Pantoprazole Sodium 40 mg 09/21/25 09:00 09/22/25 12:03 Pantoprazole 40 Mg Tablet PO Not Given DAILY DYLLAN Perflutren Lipid Microsphere 0 ml 09/21/25 06:25 Perflutren Lipid Microspheres 1.5 Ml Vial Diluted To 10 Ml Total Volume IV PUSH 09/24/25 06:26 ONCE PRN adequate visualization Protocol Promethazine HCl 12.5 mg 09/21/25 16:30 09/22/25 09:19 Promethazine Hcl 12.5 Mg Tablet PO 12.5 mg Q4H PRN Administration Nausea And Vomiting Ropinirole HCl 0.5 mg 09/21/25 21:00 09/22/25 21:43 Ropinirole Hcl 0.5 Mg Tablet PO 0.5 mg HS DYLLAN Administration Sucralfate 1 gm 09/20/25 22:40 09/22/25 21:44 Sucralfate 1 Gm Tablet PO 1 gm QID DYLLAN Administration Thiamine HCl 100 mg 09/21/25 09:00 09/22/25 12:03 Thiamine Hcl 100 Mg Tablet PO Not Given DAILY DYLLAN Trazodone HCl 200 mg 09/20/25 22:40 09/22/25 21:42 Trazodone Hcl 50 Mg Tablet PO 200 mg HS DYLLAN Administration Ursodiol 300 mg 09/20/25 22:30 09/22/25 21:42 Ursodiol 300 Mg Capsule PO 300 mg Q12HR DYLLAN Administration Valacyclovir HCl 500 mg 09/21/25 09:00 09/22/25 12:04 Valacyclovir Hcl 500 Mg Tablet PO Not Given DAILY DYLLAN Radiology Results: ITS Impressions Chest X-Ray 09/20/25 17:30 Impression: No acute cardiopulmonary abnormality. Head CT 09/20/25 17:43 Impression: 1.No acute intracranial abnormality. Labs Labs: Laboratory Results - last 24 hr 09/22/25 09/22/25 09/22/25 11:19 18:10 20:36 WBC RBC Hgb Hct MCV MCH MCHC RDW Plt Count MPV Immature Gran % (Auto) Neut % (Auto) Lymph % (Auto) [place] % (Auto) Eos % (Auto) Baso % (Auto) Lymph # (Auto) [place] # (Auto) Eos # (Auto) Baso # (Auto) Abs Immat Gran (auto) Absolute Neuts (auto) Absolute Nucleated RBC Nucleated RBC % Sodium Potassium Chloride Carbon Dioxide Anion Gap BUN Creatinine Estim Creat Clear Calc Estimated GFR Glucose POC Capillary Glucose 131 H 172 H 155 H Calcium 09/23/25 09/23/25 05:19 06:09 WBC 1.9 L* RBC 3.50 L Hgb 10.0 L Hct 32.6 L MCV 93.1 MCH 28.6 MCHC 30.7 L RDW 16.3 H Plt Count 109 L MPV 9.7 Immature Gran % (Auto) 1.1 H Neut % (Auto) 27.5 L Lymph % (Auto) 50.3 H [place] % (Auto) 13.0 H Eos % (Auto) 7.0 H Baso % (Auto) 1.1 Lymph # (Auto) 0.93 [place] # (Auto) 0.2 Eos # (Auto) 0.1 Baso # (Auto) 0.0 Abs Immat Gran (auto) 0.02 Absolute Neuts (auto) 0.5 L Absolute Nucleated RBC 0.000 Nucleated RBC % 0.0 Sodium 132 L Potassium 3.3 L Chloride 99 Carbon Dioxide 28 Anion Gap 5 BUN 6 L Creatinine 0.62 L Estim Creat Clear Calc 87 Estimated GFR > 60 Glucose 113 H POC Capillary Glucose 114 H Calcium 8.8 Quality VTE Prophylaxis VTE prophylaxis: pharmacologic ordered (Lovenox 40 mg subQ daily.)
[2025-09-23] MEDS: FLUTICASONE PROPIONATE 0.05% NA SPR 16 GM BTL (*BKC) 2 SPRAY NASAL ×2 (09:41→21:34)
[2025-09-23] MEDS: lamoTRIgine 50 MG TABLET PO ×2 (09:42→21:31)
[2025-09-23] MEDS: PANTOPRAZOLE 40 MG TABLET PO (09:42)
[2025-09-23] MEDS: ONDANSETRON INJ 4 MG/2 ML VIAL IV PUSH (09:42)
[2025-09-23] MEDS: OLOPATADINE 0.1% OPHTH SOLN 5 ML BTL 1 DROP EACH EYE (09:43)
[2025-09-23] MEDS: guaiFENesin 12 HR 600 MG TABCR PO ×2 (09:43→21:31)
[2025-09-23] MEDS: SUCRALFATE 1 GM TABLET PO ×4 (09:45→21:32)
[2025-09-23] MEDS: LORATADINE 10 MG TABLET PO (09:46)
[2025-09-23] MEDS: ASPIRIN 81 MG CHEWABLE TABLET PO (09:47)
[2025-09-23] MEDS: METOPROLOL TARTRATE 25 MG TABLET PO ×2 (09:47→21:32)
[2025-09-23] MEDS: APIXABAN 5 MG TABLET PO ×2 (09:48→21:32)
[2025-09-23] MEDS: clonazePAM (*CRX) 0.5 MG TABLET 1 MG PO (11:25)
[2025-09-23] MEDS: ACETAMINOPHEN 325 MG TABLET 650 MG PO (11:25)
[2025-09-24] VITALS (17 sets, daily range): BP systolic 113–136; BP diastolic 44–72; PULSE 63–107; RESP 16–18; TEMP 36.3–36.9; O2SAT 92–98
[2025-09-24] MEDS: clonazePAM (*CRX) 0.5 MG TABLET PO ×2 (05:41→17:16)
[2025-09-24] MEDS: LEVOTHYROXINE SODIUM 75 MCG TABLET PO (05:41)
[2025-09-24] MEDS: ACETAMINOPHEN 325 MG TABLET 650 MG PO ×3 (08:08→20:02)
[2025-09-24] MEDS: guaiFENesin 12 HR 600 MG TABCR PO ×2 (08:10→21:28)
[2025-09-24] MEDS: DAPSONE 25 MG TABLET 100 MG PO (08:10)
[2025-09-24] MEDS: APIXABAN 5 MG TABLET PO ×2 (08:10→21:28)
[2025-09-24] MEDS: LORATADINE 10 MG TABLET PO (08:11)
[2025-09-24] MEDS: DULoxetine HCL 60 MG CAPSULE.DR PO (08:11)
[2025-09-24] MEDS: ASPIRIN 81 MG CHEWABLE TABLET PO (08:11)
[2025-09-24] MEDS: SUCRALFATE 1 GM TABLET PO ×4 (08:11→21:28)
[2025-09-24] MEDS: METOPROLOL TARTRATE 25 MG TABLET PO ×2 (08:11→21:42)
[2025-09-24] MEDS: lamoTRIgine 50 MG TABLET PO ×2 (08:11→21:28)
[2025-09-24] MEDS: PANTOPRAZOLE 40 MG TABLET PO (08:11)
[2025-09-24] MEDS: FLUTICASONE PROPIONATE 0.05% NA SPR 16 GM BTL (*BKC) 2 SPRAY NASAL ×2 (08:27→21:29)
[2025-09-24 09:33] LABS: Hematocrit 35.4 % (37.0-47.0); Hemoglobin 10.7 g/dL (12.0-15.0); Mean Corpuscular HGB Conc 30.2 g/dl (32-36); Mean Corpuscular Hemoglobin 28.3 pg (26-34); Mean Corpuscular Volume 93.7 fl (80-100); Platelet Count Result 102 k/mm3 (150-375); Red Blood Count 3.78 M/mm3 (4.2-5.4); White Blood Count 2.1 K/mm3 (4.5-10.0)
[2025-09-24 09:55] LABS: Alanine Aminotransferase 35 U/L (6-35); Albumin Level 3.7 g/dL (3.5-5.1); Alkaline Phosphatase 111 U/L (38-126); Anion Gap 8 mmol/L (4-12); Aspartate Amino Transferase 60 U/L (14-36); Bilirubin,Total 0.4 mg/dL (0.2-1.3); Blood Urea Nitrogen 6 mg/dL (7-17); Calcium 8.9 mg/dL (8.4-10.2); Carbon Dioxide 29 mmol/L (22-30); Chloride 97 mmol/L (98-107); Estimated CRCL calculation 96 ml/min; Estimated Glomerular Filt Rate > 60; Glucose 103 mg/dL (65-110); Potassium 3.0 mmol/L (3.4-5.0); Sodium 134 mmol/L (137-145); Total Protein 6.1 g/dL (6.3-8.2)
[2025-09-24] MEDS: POTASSIUM CHLORIDE 20 MEQ ER TABLET 40 MEQ PO (12:17)
[2025-09-24] MEDS: clonazePAM (*CRX) 0.5 MG TABLET 1 MG PO (12:17)
--- NOTE | 2025-09-24 14:09 | PM.IMPN ---
Progress Note: A&P Assessment and Plan (1) Rhabdomyolysis: Qualifiers: Rhabdomyolysis type: non-traumatic Qualified Code(s): M62.82 - Rhabdomyolysis Code(s): M62.82 - Rhabdomyolysis Status: Acute Assessment and Plan: The patient sent in from [facility]isted Living facility due to fever and tachycardia. She was intoxicated with alcohol level of 399. Total CK was 1271. She received a total of 2 L in IV fluid bolus: 1L of LR and 1L D5LR. Rhabdomyolysis is from patient refusing to get out of bed for the last 3 days Patient states she was unable to get out of bed 2/2 alcohol intake Lipitor stopped. CK downtrended. IV fluids discontinued. PT/OT Patient remains asymptomatic denying muscle aches/pain. Renal function WNL. Resolved. (2) Atrial fibrillation: Code(s): I48.91 - Unspecified atrial fibrillation Status: Acute Assessment and Plan: Patient developed AFib with HR 140-180 range on 09/21. No hx of AFib. Treated with IV metoprolol and she converted to NSR (EKG was essentially normal). TSH normal. [id number] - at least 4 (age, gender, CVA) Echo showing EF 60-65% and no valvular disease. Consider VTE but no CP or SOB. Negative Homans. Started on metoprolol and eliquis. Tele reviewed. Remains in sinus rhythm with normal HR. (3) Leukopenia: Qualifiers: Leukopenia type: neutropenia Neutropenia type: unspecified Qualified Code(s): D70.9 - Neutropenia, unspecified Code(s): D72.819 - Decreased white blood cell count, unspecified Status: Acute Assessment and Plan: Leukopenic with WBC 2800 (ANC 742) Lactic 2.6. Repeat lactic acid normal. No fever documented. UA not consistent with UTI. CXR clear. No BCx drawn. Denies nausea/vomiting and abdominal pain. Abdominal exam benign. Probably related to her cancer and/or chemo agents and/or alcohol and/or dapsone Abx not started on admission. Neutropenic precautions. Monitor off abx. Stop dasatinib. Hold dapsone Patient remains neutropenic however WBC improving. Discussed patient's desatinib and dapsone medications with Rae nurse practitioner at [facility]. Okay to resume the dapsone and the desatanib 50 mg daily as previously prescribed. 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 Baseline WBC is unknown but could be due to the patient's chronic chemotherapeutic agents. The patient does have evidence of neutropenia with lymphocytosis consistent with her history of ALL which again is the likely cause of leukopenia. Follow CBC Discussed patient's desatinib and dapsone medications with Rae, nurse practitioner at [facility]. Okay to resume the dapsone and the desatanib 50 mg daily as previously prescribed. (6) Alcoholic intoxication: Qualifiers: Complication of substance-induced condition: with unspecified complication Qualified Code(s): F10.929 - Alcohol use, unspecified with intoxication, unspecified Code(s): F10.929 - Alcohol use, unspecified with intoxication, unspecified Status: Acute Assessment and Plan: Patient was actively intoxicated on arrival to the ER with low serum bicarb, lactic acidosis and 3+ urine ketones. Patient was not in alcoholic withdrawal on admission. She received thiamin 300 mg IV and dextrose containing fluids in the ER. CIWA protocol started. Continue Thiamine, folate. She is on chronic clonazepam. Benzodiazepines as needed for elevated CIWA score. CIWA staying at 2 on review Encouraged alcohol cessation and care coordination consulted (7) Seizure disorder: Code(s): G40.909 - Epilepsy, unspecified, not intractable, without status epilepticus Status: Acute Assessment and Plan: Patient received a loading dose of Keppra in the ER given that she had missed several days of Keppra dosing. Continue home Keppra. (8) Bipolar disorder: Qualifiers: Active/Remission status: currently active Current bipolar episode type: depressed Current episode severity: unspecified Qualified Code(s): F31.30 - Bipolar disorder, current episode depressed, mild or moderate severity, unspecified Code(s): F31.9 - Bipolar disorder, unspecified Status: Acute Assessment and Plan: Depressed mood. Continue her home clonazepam, duloxetine and lamotrigine. Patient would benefit from outpatient titration of her psychiatric medications Patient states that her klonopin dose has been incorrect since admission. Confirmed dosing with patients JODIE Cheek at [facility] and patient is on 0.5 mg at 0600, 1 mg at noon, and 0.5mg at [address] Keene in 07/2025. Medication adjusted. (9) Obstructive sleep apnea: Code(s): G47.33 - Obstructive sleep apnea (adult) (pediatric) Status: Acute Assessment and Plan: Patient with ERIK. Auto-titrate BiPAP Time Spent With Patient Time with patient: 25 - 35 minutes Subjective Date/time seen: 09/24/25 14:09 Interval history: 65yo female with alcoholism, acute lymphocytic leukemia/B-cell, bipolar disorder, TIAs, seizure disorder, CAD s/p LA who was brought in from the facility via EMS due to reported altered mental status. Patient seen sitting up comfortably in her chair. Patient continues to endorse a slight cough that is nonproductive and is now endorsing shortness of breath. She has no other complaints denying chest pain, palpitations, nausea/vomiting and adbominal pain. She continues to work well with therapy and per OT did not endorse dizziness or lightheadedness when ambulating throughout the room. Review of Systems Review of Systems: All systems reviewed & are unremarkable except as noted in HPI and below Exam Narrative: AF HR 75 RR 18 Spo2 97 BP 136/72 General: female in no acute respiratory distress who is nontoxic appearing, sitting up in chair HEENT: Normocephalic. Atraumatic. Extraocular movement intact. Sclera clear and anicteric. No facial asymmetry. Chest: Lungs are clear to auscultation bilaterally. No wheezes or crackles. Speaking full sentences. Slight dry cough. CV: Heart was regular rate and rhythm. Abd: Abdomen was soft. Nontender. Nondistended. Positive bowel sounds. Ext: No clubbing, cyanosis, or edema. DP pulses bilaterally. Neuro: Patient is alert. Speech is clear. Objective Data Vital Signs Vital Signs: Vital Signs - 24 hr 09/23/25 16:01 09/23/25 16:01 09/23/25 19:35 Temperature Pulse Rate 78 Pulse Rate [Monitor] 78 Respiratory Rate Blood Pressure Pulse Oximetry 97 Oxygen Delivery Room Air Fraction of Inspired Oxygen 09/23/25 19:35 09/23/25 19:35 09/23/25 19:45 Temperature Pulse Rate 78 78 80 Pulse Rate [Monitor] Respiratory Rate 20 20 20 Blood Pressure Pulse Oximetry 97 Oxygen Delivery Room Air Fraction of Inspired Oxygen 21 09/23/25 20:00 09/23/25 20:00 09/23/25 20:00 Temperature Pulse Rate 77 Pulse Rate [Monitor] 77 Respiratory Rate Blood Pressure Pulse Oximetry Oxygen Delivery Room Air Fraction of Inspired Oxygen 09/23/25 20:21 09/23/25 21:32 09/24/25 00:00 Temperature 97.3 F L Pulse Rate 79 77 64 Pulse Rate [Monitor] Respiratory Rate 16 Blood Pressure 120/53 L Pulse Oximetry 98 Oxygen Delivery Fraction of Inspired Oxygen 09/24/25 01:22 09/24/25 01:22 09/24/25 01:35 Temperature Pulse Rate 63 64 Pulse Rate [Monitor] Respiratory Rate 16 16 Blood Pressure Pulse Oximetry 93 Oxygen Delivery Room Air Fraction of Inspired Oxygen 09/24/25 04:00 09/24/25 04:25 09/24/25 07:46 Temperature 98.5 F Pulse Rate 94 69 64 Pulse Rate [Monitor] Respiratory Rate 17 16 Blood Pressure 113/44 L Pulse Oximetry 92 Oxygen Delivery Fraction of Inspired Oxygen 09/24/25 08:00 09/24/25 08:00 09/24/25 12:00 Temperature Pulse Rate Pulse Rate [Monitor] 77 77 Respiratory Rate Blood Pressure Pulse Oximetry Oxygen Delivery Room Air Fraction of Inspired Oxygen 09/24/25 12:00 Temperature Pulse Rate 107 H Pulse Rate [Monitor] Respiratory Rate Blood Pressure Pulse Oximetry Oxygen Delivery Fraction of Inspired Oxygen Intake/Output Intake/Output: Intake & Output 09/21/25 09/22/25 09/23/25 09/24/25 23:59 23:59 23:59 23:59 Intake Total 4975.7 174 940 6878 Balance 4975.7 424 288 3261 Meds/Results Medications: Active Medications Generic Name Dose Route Start Last Admin Trade Name Freq PRN Reason Stop Dose Admin Acetaminophen 650 mg 09/20/25 18:54 09/24/25 12:21 Acetaminophen 325 Mg Tablet PO 650 mg Q4H PRN Administration Mild Pain (1-3) or Fever Al Hydrox/Mg Hydrox/Simethicone 30 ml 09/20/25 21:02 Mag Hydrox/Al Hydrox/Simeth 30 Ml Udc PO Q6H PRN Indigestion Albuterol 2 puff 09/20/25 22:27 Albuterol Sulfate (*Sp) Aerosol 1 Puff INHALATION Q4H PRN Shortness Of Breath Or Wheezing Apixaban 5 mg 09/22/25 11:10 09/24/25 08:10 Apixaban 5 Mg Tablet PO 5 mg Q12HR DYLLAN Administration Aspirin 81 mg 09/21/25 09:00 09/24/25 08:11 Aspirin 81 Mg Chewable Tablet PO 81 mg DAILY DYLLAN Administration Clonazepam 1 mg 09/21/25 12:00 09/24/25 12:17 Clonazepam (*Crx) 0.5 Mg Tablet PO 1 mg 1200 DYLLAN Administration Clonazepam 0.5 mg 09/24/25 06:00 09/24/25 05:41 Clonazepam (*Crx) 0.5 Mg Tablet PO 0.5 mg 0600 DYLLAN Administration Clonazepam 0.5 mg 09/23/25 18:00 09/23/25 17:42 Clonazepam (*Crx) 0.5 Mg Tablet PO 0.5 mg 1800 DYLLAN Administration Dapsone 100 mg 09/21/25 09:00 09/24/25 08:10 Dapsone 25 Mg Tablet PO 100 mg DAILY DYLLAN Administration Docusate Sodium 100 mg 09/20/25 21:02 Docusate Sodium 100 Mg Capsule PO Q12H PRN Constipation Duloxetine HCl 60 mg 09/21/25 09:00 09/24/25 08:11 Duloxetine Hcl 60 Mg Capsule.Dr PO 60 mg DAILY DYLLAN Administration Fluticasone Propionate 2 spray 09/20/25 22:30 09/24/25 08:27 Fluticasone Propionate 0.05% Na Spr 16 Gm Btl (*Bkc) NASAL 2 spray Q12HR DYLLAN Administration Folic Acid 1 mg 09/21/25 09:00 09/24/25 09:29 Folic Acid 1 Mg Tablet PO Not Given DAILY DYLLAN Guaifenesin 600 mg 09/22/25 11:25 09/24/25 08:10 Guaifenesin 12 Hr 600 Mg Tabcr PO 600 mg Q12HR DYLLAN Administration Guaifenesin/Dextromethorphan 10 ml 09/22/25 11:09 09/24/25 12:21 Guaifenesin/Dextromethorphan 10 Ml Udc PO 10 ml Q4H PRN Administration Cough Hydroxyzine HCl 25 mg 09/20/25 22:27 Hydroxyzine Hcl 25 Mg Tablet PO TID PRN Itching Lamotrigine 100 mg 09/20/25 22:45 09/24/25 08:11 Lamotrigine 100 Mg Tablet PO 100 mg Q12HR DYLLAN Administration Lamotrigine 50 mg 09/20/25 22:45 09/24/25 08:11 Lamotrigine 50 Mg Tablet PO 50 mg Q12HR DYLLAN Administration Levalbuterol HCl 1.25 mg 09/22/25 14:00 09/24/25 07:43 Levalbuterol Neb 1.25 Mg/3 Ml INHALATION 1.25 mg Q6HRT DYLLAN Administration Levetiracetam 500 mg 09/21/25 09:00 09/24/25 08:11 Levetiracetam 500 Mg Tablet PO 500 mg Q12HR DYLLAN Administration Levothyroxine Sodium 75 mcg 09/21/25 06:30 09/24/25 05:41 Levothyroxine Sodium 75 Mcg Tablet PO 75 mcg DAILY@0630 DYLLAN Administration Loratadine 10 mg 09/21/25 09:00 09/24/25 08:11 Loratadine 10 Mg Tablet PO 10 mg DAILY DYLLAN Administration Lorazepam 2 mg 09/20/25 20:07 09/22/25 21:01 Lorazepam (*Crx) 1 Mg Tablet PO 2 mg Q2H PRN Administration CIWA>8, HR>100, or DBP>100 Metoprolol Tartrate 5 mg 09/21/25 06:00 09/21/25 06:16 Metoprolol Tartrate Inj 5 Mg/5 Ml Vial IV PUSH 5 mg Q10M PRN Administration SBP/HR >100, AFIB Metoprolol Tartrate 25 mg 09/22/25 21:00 09/24/25 08:11 Metoprolol Tartrate 25 Mg Tablet PO 25 mg Q12HR DYLLAN Administration Multivitamins/Calcium 1 tablet 09/21/25 09:00 09/24/25 09:29 Therapeutic Multivitamins/Minerals Tab (*Bkc) PO Not Given DAILY DYLLAN Olopatadine HCl 1 drop 09/20/25 22:27 09/23/25 09:43 Olopatadine 0.1% Ophth Soln 5 Ml Btl EACH EYE 1 drop BID PRN Administration dry eyes Ondansetron HCl 4 mg 09/20/25 18:54 09/23/25 09:42 Ondansetron Inj 4 Mg/2 Ml Vial IV PUSH 4 mg Q4H PRN Administration Nausea Pantoprazole Sodium 40 mg 09/21/25 09:00 09/24/25 08:11 Pantoprazole 40 Mg Tablet PO 40 mg DAILY DYLLAN Administration Promethazine HCl 12.5 mg 09/21/25 16:30 09/22/25 09:19 Promethazine Hcl 12.5 Mg Tablet PO 12.5 mg Q4H PRN Administration Nausea And Vomiting Ropinirole HCl 0.5 mg 09/21/25 21:00 09/23/25 21:32 Ropinirole Hcl 0.5 Mg Tablet PO 0.5 mg HS DYLLAN Administration Sucralfate 1 gm 09/20/25 22:40 09/24/25 12:17 Sucralfate 1 Gm Tablet PO 1 gm QID DYLLAN Administration Thiamine HCl 100 mg 09/21/25 09:00 09/24/25 09:29 Thiamine Hcl 100 Mg Tablet PO Not Given DAILY DYLLAN Trazodone HCl 200 mg 09/20/25 22:40 09/23/25 21:31 Trazodone Hcl 50 Mg Tablet PO 200 mg HS DYLLAN Administration Ursodiol 300 mg 09/20/25 22:30 09/24/25 08:11 Ursodiol 300 Mg Capsule PO 300 mg Q12HR DYLLAN Administration Valacyclovir HCl 500 mg 09/21/25 09:00 09/24/25 09:29 Valacyclovir Hcl 500 Mg Tablet PO Not Given DAILY [facility] Radiology Results: ITS Impressions Chest X-Ray 09/20/25 17:30 Impression: No acute cardiopulmonary abnormality. Head CT 09/20/25 17:43 Impression: 1.No acute intracranial abnormality. Labs Labs: Laboratory Results - last 24 hr 09/23/25 09/23/25 09/24/25 17:23 21:15 05:12 WBC RBC Hgb Hct MCV MCH MCHC RDW Plt Count MPV Sodium Potassium Chloride Carbon Dioxide Anion Gap BUN Creatinine Estim Creat Clear Calc Estimated GFR Glucose POC Capillary Glucose 99 97 139 H Calcium Total Bilirubin AST ALT Alkaline Phosphatase Total Protein Albumin 09/24/25 09/24/25 09:20 12:09 WBC 2.1 L RBC 3.78 L Hgb 10.7 L Hct 35.4 L MCV 93.7 MCH 28.3 MCHC 30.2 L RDW 16.6 H Plt Count 102 L MPV 9.7 Sodium 134 L Potassium 3.0 L Chloride 97 L Carbon Dioxide 29 Anion Gap 8 BUN 6 L Creatinine 0.56 L Estim Creat Clear Calc 96 Estimated GFR > 60 Glucose 103 POC Capillary Glucose 127 H Calcium 8.9 Total Bilirubin 0.4 AST 60 H ALT 35 Alkaline Phosphatase 111 Total Protein 6.1 L Albumin 3.7 Quality VTE Prophylaxis VTE prophylaxis: pharmacologic ordered (Lovenox 40 mg subQ daily.)
[2025-09-24] MEDS: BENZOCAINE/MENTHOL (*BKC) 18 EA LOZENGE 1 LOZENGE PO (16:38)
[2025-09-24] MEDS: clonazePAM (*CRX) 0.25 MG TABLET PO (17:42)
[2025-09-25] VITALS (8 sets, daily range): BP systolic 113; BP diastolic 45; PULSE 64–80; RESP 14–16; TEMP 36.3; O2SAT 98
[2025-09-25] MEDS: LEVOTHYROXINE SODIUM 75 MCG TABLET PO (05:44)
[2025-09-25] MEDS: clonazePAM (*CRX) 0.25 MG TABLET PO (05:44)
[2025-09-25] MEDS: clonazePAM (*CRX) 0.5 MG TABLET PO (05:44)
[2025-09-25] MEDS: FLUTICASONE PROPIONATE 0.05% NA SPR 16 GM BTL (*BKC) 2 SPRAY NASAL (05:53)
[2025-09-25] MEDS: METOPROLOL TARTRATE 25 MG TABLET PO (09:12)
[2025-09-25] MEDS: LORATADINE 10 MG TABLET PO (09:19)
[2025-09-25] MEDS: guaiFENesin 12 HR 600 MG TABCR PO (09:19)
[2025-09-25] MEDS: APIXABAN 5 MG TABLET PO (09:19)
[2025-09-25] MEDS: DAPSONE 25 MG TABLET 100 MG PO (09:21)
[2025-09-25] MEDS: PANTOPRAZOLE 40 MG TABLET PO (09:23)
[2025-09-25] MEDS: DULoxetine HCL 60 MG CAPSULE.DR PO (09:23)
[2025-09-25] MEDS: ASPIRIN 81 MG CHEWABLE TABLET PO (09:23)
[2025-09-25] MEDS: lamoTRIgine 50 MG TABLET PO (09:23)
[2025-09-25] MEDS: SUCRALFATE 1 GM TABLET PO ×2 (09:24→11:22)
[2025-09-25] MEDS: ACETAMINOPHEN 325 MG TABLET 650 MG PO (09:43)
[2025-09-25 10:25] LABS: Hematocrit 33.2 % (37.0-47.0); Hemoglobin 10.4 g/dL (12.0-15.0); Mean Corpuscular HGB Conc 31.3 g/dl (32-36); Mean Corpuscular Hemoglobin 29.2 pg (26-34); Mean Corpuscular Volume 93.3 fl (80-100); Platelet Count Result 107 k/mm3 (150-375); Red Blood Count 3.56 M/mm3 (4.2-5.4); White Blood Count 2.7 K/mm3 (4.5-10.0)
--- NOTE | 2025-09-25 10:58 | P.DS_ITS ---
DS: Admitting Diagnosis Discharge Date 09/25/2025 Admitting Diagnosis rhabdomyolysis atrial fibrillation leukopenia lactic acidosis b cell ALL alcohol intoxication seizure disorder bipolar mireya DS: Discharge Diagnosis Discharge Diagnosis (1) Rhabdomyolysis: Qualifiers: Rhabdomyolysis type: non-traumatic Qualified Code(s): M62.82 - Rhabdomyolysis Code(s): M62.82 - Rhabdomyolysis Status: Acute (2) Atrial fibrillation: Code(s): I48.91 - Unspecified atrial fibrillation Status: Acute (3) Leukopenia: Qualifiers: Leukopenia type: neutropenia Neutropenia type: unspecified Qualified Code(s): D70.9 - Neutropenia, unspecified Code(s): D72.819 - Decreased white blood cell count, unspecified Status: Acute (4) Lactic acidosis: Code(s): E87.20 - Acidosis, unspecified Status: Acute (5) B-cell acute lymphoblastic leukemia: Onset Date: 2023 Code(s): C91.00 - Acute lymphoblastic leukemia not having achieved remission Status: Acute (6) Alcoholic intoxication: Qualifiers: Complication of substance-induced condition: with unspecified complication Qualified Code(s): F10.929 - Alcohol use, unspecified with intoxication, unspecified Code(s): F10.929 - Alcohol use, unspecified with intoxication, unspecified Status: Acute (7) Seizure disorder: Code(s): G40.909 - Epilepsy, unspecified, not intractable, without status epilepticus Status: Acute (8) Bipolar disorder: Qualifiers: Active/Remission status: currently active Current bipolar episode type: depressed Current episode severity: unspecified Qualified Code(s): F31.30 - Bipolar disorder, current episode depressed, mild or moderate severity, unspecified Code(s): F31.9 - Bipolar disorder, unspecified Status: Acute (9) Obstructive sleep apnea: Code(s): G47.33 - Obstructive sleep apnea (adult) (pediatric) Status: Acute DS: Summary Hospital Course Reason for hospitalization: rhabdomyolysis atrial fibrillation leukopenia lactic acidosis b cell ALL alcohol intoxication seizure disorder bipolar mireya Hospital Course: 65yo female with alcoholism, acute lymphocytic leukemia/B-cell, bipolar disorder, TIAs, seizure disorder, CAD s/p LA who was brought in from the facility via EMS due to reported altered mental status. Patient was actively intoxicated on arrival to the ER with low serum bicarb, lactic acidosis and 3+ urine ketones. Repeat lactic acid normal. Patient was not in alcoholic withdrawal on admission. She received thiamin 300 mg IV and dextrose containing fluids in the ER. She was continued on thiamine, folate and her chronic klonopin throughout admission. CIWA remained stable. Strongly encouraged alcohol cessation throughout admission and at time of discharge. Care coordination gave resources for alcohol cessation. Patient to continue her home klonopin and was started on folic acid and thiamine. During admission patient developed AFib RVR. She denies any history of AFib and was treated with IV metoprolol which converted her back to a normal sinus rhythm. An echo was obtained which showed a normal ejection fraction and no valvular disease. She was started on metoprolol and Eliquis. Tele was reviewed throughout admission and she remained in sinus rhythm with stable heart rates. Discussed with patient about the newly prescribed blood thinners. All questions and concerns were answered at that time. Patient is to follow up with her primary care provider or a head of marketing analytics in terms of the new atrial fibrillation diagnosis. She states understanding. Patient noted that she had not gotten out of bed for at least 3 days prior to admission due to her alcohol consumption. Patient had elevated CK and noted to be in rhabdomyolysis on admission. Received IV fluids and this resolved. Patient was able to work well with physical and occupational therapy. She had no complaints muscle pain/aches and renal function remained within normal limits. Throughout admission patient was noted to be leukopenic. UA not consistent with UTI. CXR clear. No BCx drawn. Denies nausea/vomiting and abdominal pain. Abdominal exam benign. Probably related to her cancer and/or chemo agents and/or alcohol and/or dapsone. Patient's desatinib and dapsone medications with Rae, nurse practitioner at [facility] who stated that it is okay to resume the dapsone and the desatanib 50 mg daily as previously prescribed. Patient to have close follow-up with [facility]. Discussed this with her at time of discharge and she stated understanding. Patient noted that she had not been taking her Keppra for several days on admission. She received a loading dose of Keppra in the ER and her home Keppra medication was resumed. Patient is to continue her antiseizure medications as previously prescribed. Patient continued to endorse a dry cough prior to discharge with no associated shortness of breath. Repeat chest xr was again unremarkable for acute infection. She noted that when she coughed she would get intermittently dizzy however this quickly resolved after the coughing episode. She did not endorse dizziness or lightheadedness with ambulation. Patient had no complaints denying chest pain, palpitations, shortness of breath, dizziness/lightheadedness, nausea/vomiting and abdominal pain at time of discharge. Patient discharged back to assisted living in a stable condition. She is to follow up with her PCP in 1 week and [facility] as scheduled. Status at Discharge Functional status at discharge: uses cane/walker Time Spent with Patient Time attestation: Total time spent providing and/or coordinating discharge services: Time spent: Greater than 30 minutes Exam Narrative: AF HR 65 RR 14 Spo2 98 BP 113/45 General: female in no acute respiratory distress who is nontoxic appearing, sitting up in chair HEENT: Extraocular movement intact. Sclera clear and anicteric. No facial asymmetry. Chest: Lungs are clear to auscultation bilaterally. No wheezes or crackles. Speaking full sentences. Slight dry cough, nonproductive. CV: Heart was regular rate and rhythm. Abd: Abdomen was soft. Nontender. Nondistended. Positive bowel sounds. Ext: No clubbing, cyanosis, or edema. DP pulses bilaterally. Neuro: Patient is alert. Speech is clear. DS: Data Data Completed and Pending Completed studies during hospitalization: chest xr head ct chest xr Labs on day of discharge: Labs from last 24 hours 09/25/25 09/25/25 09/25/25 09:06 09:05 06:54 WBC 2.7 L RBC 3.56 L Hgb 10.4 L Hct 33.2 L MCV 93.3 MCH 29.2 MCHC 31.3 L RDW 16.8 H Plt Count 107 L MPV 9.9 Sodium Pending Potassium Pending Chloride Pending Carbon Dioxide Pending Anion Gap Pending BUN Pending Creatinine Pending Estim Creat Clear Calc Pending Estimated GFR Pending Glucose Pending POC Capillary Glucose 107 H Calcium Pending Total Bilirubin Pending AST Pending ALT Pending Alkaline Phosphatase Pending Total Protein Pending Albumin Pending 09/25/25 09/24/25 09/24/25 00:15 17:47 12:09 WBC RBC Hgb Hct MCV MCH MCHC RDW Plt Count MPV Sodium Potassium Chloride Carbon Dioxide Anion Gap BUN Creatinine Estim Creat Clear Calc Estimated GFR Glucose POC Capillary Glucose 108 H 115 H 127 H Calcium Total Bilirubin AST ALT Alkaline Phosphatase Total Protein Albumin Preliminary micro results at discharge 09/23/25 09:55 Sputum Culture - Preliminary Sputum Discharge Plan Discharge Attending physician on discharge: Carlton Collier Consulting providers: Lor Rodriguez Discharging Clinician: Lor Rodriguez Anticipated Discharge Date/Time: 09/25/25 10:37 Patient Disposition: [facility] Activity: as tolerated Diet: as tolerated and heart healthy Discharge Instructions: Discharge disposition: During admission patient newly diagnosed with paroxysmal atrial fibrillation Started on metoprolol and eliquis, attached is information on these medications Strict bleeding precautions since you are being started on eliquis including shaving with an electric razor, holding pressure for greater than 20 minutes for injury, protection of head with any falls, etc. Monitor blood pressures Take caution while standing, rising, or moving Change positions slowly taking a break between each position change If you standing feel dizzy sit back down and take a break Continue chemotherapy medications as previously prescribed Per Rae DUTTA desatinib dose has been decreased to 50 mg daily, ensure adequate dosing of medication Discussed medications with Rae DUTTA at [facility] and they want a close follow up after discharge, call for appointment Strongly encourage alcohol cessation Continue thiamine and folate Attached is information on this medication Continue home medications for anxiety/depression as previously prescribed If refills are required this will need to be obtained from the previous prescribers Continue keppra as prescribed for seizure disorder Encouraged to continue with yearly vaccinations Return to the emergency department if you develop sudden shortness of breath, chest pain, nausea, vomiting, upset stomach or intractable diarrhea Return to the emergency department if you develop signs of stroke (sudden weakness, speech difficulty, vision changes) or significant bleeding Return to the emergency department if you develop fever greater than 100.5 Follow-up with the primary care physician within 1-2 weeks Thank you for [facility] for your healthcare needs Patient Instructions: Metoprolol (By mouth), Apixaban (By mouth), Rhabdomyolysis (DC), Alcohol Withdrawal (DC), Blood Thinners (DC) Patient Language: Lao Stand Alone Forms: General Discharge Information Follow-up/Referrals: Christie Reyes [Other] - 1 Week Discharge Medications: New Eliquis 5 mg Tablet 5 mg PO Q12HR 30 Days Qty: 60 0RF folic acid 1 mg Tablet 1 mg PO DAILY Qty: 30 0RF thiamine HCl (vitamin B1) [Vitamin B-1] 100 mg Tablet 100 mg PO DAILY Qty: 30 0RF metoprolol tartrate 25 mg Tablet 25 mg PO Q12HR Qty: 60 0RF Continued albuterol sulfate 90 mcg/actuation HFA aerosol inhaler 2 puff INHALATION Q4H PRN (Reason: shortness of breath or wheezing) aspirin 81 mg capsule 81 mg PO DAILY atorvastatin 40 mg tablet 40 mg PO QPM clonazepam 1 mg tablet 1 mg PO .@1200 clonazepam 0.5 mg tablet 0.5 mg PO Q12H Patient Comments: takes at 6am and 6pm dapsone 100 mg tablet 100 mg PO DAILY duloxetine 60 mg capsule,delayed release(DR/EC) 60 mg PO DAILY fluticasone propionate 50 mcg/actuation spray,suspension 2 spray INTRANASAL Q12H hydroxyzine HCl 25 mg tablet 25 mg PO TID PRN (Reason: itching) lamotrigine 150 mg tablet 150 mg PO Q12H levetiracetam 500 mg tablet 500 mg PO Q12H levothyroxine 75 mcg tablet 75 mcg PO DAILY loratadine [Allergy Relief (loratadine)] 10 mg tablet 10 mg PO DAILY olopatadine 0.1 % drops 1 drp EACH EYE BID PRN (Reason: dry eyes) Rx Instructions: separate doses by at least 6-8 hours ondansetron HCl 4 mg tablet 4 mg PO Q6H PRN (Reason: nausea and vomiting) pantoprazole 40 mg tablet,delayed release (DR/EC) 40 mg PO DAILY ropinirole 0.5 mg tablet 0.5 mg PO HS sennosides [Laxative (sennosides)] 8.6 mg tablet 8.6 mg PO BID PRN (Reason: constipation) dasatinib [Phyrago] 70 mg tablet 70 mg PO DAILY sucralfate 1 gram tablet 1 g PO QID trazodone 100 mg tablet 200 mg PO HS ursodiol 300 mg capsule 300 mg PO Q12H valacyclovir 500 mg tablet 500 mg PO DAILY Date of admission: 09/21/25 07:45 Primary Care Provider: Christie Reyes Admitting Provider: Ivan Roe Attending physician on admission: Ivan Roe Condition: Stable Hospitalist MIPS Heart Failure (Exclusion) Patient has history of Heart Transplant or Left Ventricular Assistive Device?: No IF YES, STOP HERE Heart Failure (Qualifier) Patient has current or prior documentation of LVEF less than or equal to 40%, or mod/servere depressed LVSF?: No IF NO, STOP HERE
[2025-09-25 11:09] LABS: Alanine Aminotransferase 34 U/L (6-35); Albumin Level 3.7 g/dL (3.5-5.1); Alkaline Phosphatase 116 U/L (38-126); Anion Gap 6 mmol/L (4-12); Aspartate Amino Transferase 58 U/L (14-36); Bilirubin,Total 0.3 mg/dL (0.2-1.3); Blood Urea Nitrogen 8 mg/dL (7-17); Calcium 8.9 mg/dL (8.4-10.2); Carbon Dioxide 30 mmol/L (22-30); Chloride 99 mmol/L (98-107); Estimated CRCL calculation 90 ml/min; Estimated Glomerular Filt Rate > 60; Glucose 140 mg/dL (65-110); Potassium 3.1 mmol/L (3.4-5.0); Sodium 135 mmol/L (137-145); Total Protein 5.9 g/dL (6.3-8.2)
[2025-09-25] MEDS: clonazePAM (*CRX) 0.5 MG TABLET 1 MG PO (11:22)
== END 2025-09-25 12:50 | DRG 897 ==
LOC: ANHED 16:54 → ANH3MEDSUR 19:37
PROVIDERS: Internal Medicine; Admitting Provider General Practice; Emergency Provider Student in an Organized Health Care Education/Training Program; Visit Provider Student in an Organized Health Care Education/Training Program
DX: F10.229 Alcohol dependence with intoxication, unspecified (principal); M62.82 Rhabdomyolysis; E87.29 Other acidosis; C94.80 Other specified leukemias not having achieved remission; E87.21 Acute metabolic acidosis; I48.0 Paroxysmal atrial fibrillation; G40.909 Epilepsy, unspecified, not intractable, without status epilepticus; F31.9 Bipolar disorder, unspecified; E03.9 Hypothyroidism, unspecified; G47.33 Obstructive sleep apnea (adult) (pediatric); E86.0 Dehydration; D70.1 Agranulocytosis secondary to cancer chemotherapy; T45.1X5A Adverse effect of antineoplastic and immunosuppressive drugs, initial encounter; Y90.8 Blood alcohol level of 240 mg/100 ml or more; Z91.148 Patient's other noncompliance with medication regimen for other reason; Z86.73 Personal history of transient ischemic attack (TIA), and cerebral infarction without residual deficits; I25.2 Old myocardial infarction
CPT/HCPCS: 36415; 70450; 71045; 80048; 80053; 80143; 80179; 80307; 81001; 82077; 82550; 82607; 82746; 82948; 83605; 83735; 84100; 84443; 85025; 85027; 85610; 85730; 87070; 87205; 87637; 93005; 93306; 94640; 96361; 96365; 96375; 96376; 97110; 97162; 97166; 97530; 97535; 99285; A9270; G0378; J0616; J1650; J1953; J2405; J3360; J3411; J3475; J7120; J7121

== ENCOUNTER 2025-11-02 10:27 | Inpatient (IN) | payer MEDICARE, MEDICAID, SELFPAY ==
[2025-11-02] VITALS (25 sets, daily range): BP systolic 138–159; BP diastolic 61–82; PULSE 93–131; RESP 12–23; TEMP 37.2–37.3; O2SAT 92–100; BMI 32.1
--- NOTE | ~2025-11-02 | XR_ITS ---
EXAMINATION: XR chest 1V DATE: 11/02/2025 12:28 INDICATION: Chest pain and coughing TECHNIQUE: frontal view of the chest was obtained. COMPARISON: Chest radiograph dated 09/24/2025 FINDINGS: The lungs are clear with no focal airspace opacities, pulmonary edema, pleural effusion or pneumothorax. The cardiomediastinal silhouette is normal. Visualized bones and soft tissues are unremarkable. IMPRESSION: 1. No acute cardiopulmonary disease. Reviewed, dictated and finalized at location A. AND HARDWARE OUTFITTER
--- NOTE | ~2025-11-02 | CT_ITS ---
EXAMINATION: CT abdomen pelvis w con DATE: 11/02/2025 12:20 INDICATION: Low abdominal pain. TECHNIQUE: Computed tomography (CT) of the abdomen and pelvis was performed with 100 mL Omnipaque 350 intravenous contrast. Automated exposure control and iterative reconstruction technique were employed. The dose-length product was 1173.85 mGy-cm. COMPARISON: None. FINDINGS: The visualized lung bases demonstrate mild atelectasis. No pleural effusion. The heart size is normal. No pericardial effusion. There is a moderate-sized sliding hiatal hernia. There is diffuse hepatic steatosis. The gallbladder is distended. The spleen, pancreas, and adrenal glands are normal. There is mild bilateral hydronephrosis and hydroureter. 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 There is diverticulosis of the colon without evidence of diverticulitis. The appendix is normal. There are no dilated loops of bowel. There are no pathologically enlarged lymph nodes. There is trace ascites. There is severe lumbar spondylosis and mild thoracic spondylosis. The bladder is markedly distended. IMPRESSION: 1. Markedly distended bladder with mild bilateral hydronephrosis and hydroureter. 2. Gallbladder distention, which may be secondary to fasting. Correlate with physical exam to exclude acute cholecystitis. 3. Diffuse hepatic steatosis. 4. Moderate-sized sliding hiatal hernia. Reviewed, dictated and finalized at location E. ORIAL DIRECTOR IMPRESSION: 1. Markedly distended bladder with mild bilateral hydronephrosis and hydrourete r. 2. Gallbladder distention, which may be secondary to fasting. Correlate with ph ysical exam to exclude acute cholecystitis. 3. Diffuse hepatic steatosis. 4. Moderate-sized sliding hiatal hernia.
--- NOTE | ~2025-11-02 | US_ITS ---
EXAMINATION: Ultrasound kidneys: DATE: 11/04/2025 INDICATION: Finding of markedly distended bladder and mild bilateral hydronephrosis and hydroureter on CT examination. TECHNIQUE: Ultrasound of the kidneys was performed after the urinary bladder was drained by Johnson catheter. COMPARISON: CT abdomen pelvis dated 11/02/2025. FINDINGS: The kidneys are normal in size measuring and length of 10 cm on each side. Echotexture of the kidneys are normal. There is no evidence of hydronephrosis on either side. No abnormal fluid collections around the kidneys. Bladder is empty, being drained by Johnson catheter. No fluid in the pelvis. IMPRESSION: 1. Normal size kidneys without obstructive changes. The hydronephrosis and hydroureter noted on CT scan of 11/02/2025 was most likely due to distended bladder. Reviewed, dictated and finalized at location T. INING MACHINE OPERATOR IMPRESSION: 1. Normal size kidneys without obstructive changes. The hydronephrosis and hydr oureter noted on CT scan of 11/02/2025 was most likely due to distended bladder.
--- NOTE | 2025-11-02 10:56 | ECG_ITS ---
Test Date: 2025-11-02 11:05:41 Measurements Intervals [place] Rate: 110 P: 46 WV: 157 QRS: 64 QRSD: 82 T: 74 QT: 332 QTc: 451 Interpretive Statements SINUS TACHYCARDIA BORDERLINE ST-T WAVE ABNORMALITY- DIFFUSE LEADS BASELINE ARTIFACT- I, II, III, AVR, AVL, AVF ABNORMAL ECG Compared to ECG 09/21/2025 06:46:33 HEART RATE HAS INCREASED Electronically Signed On 11-02-2025 11:35:15 IMPREGNATING MACHINE OPERATOR by Jarrett De Los Santos D.O.
[2025-11-02] MEDS: ONDANSETRON INJ 4 MG/2 ML VIAL IV PUSH ×4 (11:37→22:59)
[2025-11-02 11:38] LABS: Add Urine Microscopic? YES; Appearance Urine Clear (Clear); Glucose Urine UA Negative (Negative); Leukocyte Esterase Ur Trace LEU/UL (Negative); Nitrate Urine Negative (Negative); Non Pathogenic Casts 0-2; Specific Grav Ur 1.007 (1.001-1.035)
[2025-11-02] MEDS: THIAMINE HCL INJ 100 MG, FOLIC ACID INJ 1 MG, MAGNESIUM SULFATE INJ 1 GM, MULTIVITAMINS... 125 MG IV CONT (11:40)
[2025-11-02 11:43] LABS: Hematocrit 37.3 % (37.0-47.0); Hemoglobin 11.9 g/dL (12.0-15.0); Immature Granulocyte Percent A 0.9 % (0-0.5); Immature Reticulocyte Fraction 24.0 % (3.0-15.9); Lymphocytes Absolute Auto 2.23 K/mm3 (0.9-3.2); Mean Corpuscular HGB Conc 31.9 g/dl (32-36); Mean Corpuscular Hemoglobin 30.6 pg (26-34); Mean Corpuscular Volume 95.9 fl (80-100); Nucleated Red Blood Cells Absolute Auto 0.000 K/mm3 (0.0-0.012); Nucleated Red Blood Cells Perc 0.0 % (0.0-0.2); Platelet Count Result 483 k/mm3 (150-375); Red Blood Count 3.89 M/mm3 (4.2-5.4); Reticulocyte Hemoglobin Conten 34.6 pg (28.2-36.6); Reticulocytes Absolute 0.24 10^6/uL (0.02-0.10); White Blood Count 18.6 K/mm3 (4.5-10.0)
[2025-11-02 11:56] LABS: Alanine Aminotransferase 35 U/L (6-35); Albumin Level 5.5 g/dL (3.5-5.1); Alkaline Phosphatase 162 U/L (38-126); Anion Gap 25 mmol/L (4-12); Aspartate Amino Transferase 54 U/L (14-36); Bilirubin,Total 1.0 mg/dL (0.2-1.3); Blood Urea Nitrogen 15 mg/dL (7-17); Calcium 9.0 mg/dL (8.4-10.2); Carbon Dioxide 13 mmol/L (22-30); Chloride 98 mmol/L (98-107); Estimated CRCL calculation 47 ml/min; Estimated Glomerular Filt Rate 42; Glucose 101 mg/dL (65-110); Lipase 43 U/L (23-300); Potassium 4.3 mmol/L (3.4-5.0); Sodium 136 mmol/L (137-145); Total Protein 8.6 g/dL (6.3-8.2)
[2025-11-02 12:00] LABS: INR 1.1; Prothrombin Time 14.3 Seconds (11.1-14.7)
--- NOTE | 2025-11-02 12:00 | ED.GENADULT ---
HPI - General Adult General Chief complaint: Unspecified Stated complaint: groin pain, urinary sx, +ETOH Time Seen by Provider: 11/02/25 10:37 Source: patient, EMS, RN notes reviewed and old records reviewed Mode of arrival: EMS Limitations: intoxication History of Present Illness HPI narrative: THis is a 65 year old female history of alcohol abuse, seizures, chronic anticoagulation who presents for evaluation of abdominal pain and intoxication. She is oriented to person, place and situations. She reports lower abdominal pain that is severe and it is worse with movement. She came from [facility] and she admitted to alcohol intoxication. She is other hartley not cooperative with history Related Data Home Medications ?Medication ?Instructions ?Recorded ?Confirmed ?Last Taken ?Type aspirin 81 mg capsule 81 mg PO DAILY 09/20/25 11/02/25 Unknown History atorvastatin 40 mg tablet 40 mg PO QPM 09/20/25 11/02/25 Unknown History clonazepam 0.5 mg tablet 0.5 mg PO Q12H 09/20/25 11/02/25 Unknown History clonazepam 1 mg tablet 1 mg PO .@1200 09/20/25 11/02/25 Unknown History dapsone 100 mg tablet 100 mg PO DAILY 09/20/25 11/02/25 Unknown History dasatinib 70 mg tablet (Phyrago) 70 mg PO DAILY 09/20/25 11/02/25 Unknown History duloxetine 60 mg capsule,delayed 60 mg PO DAILY 09/20/25 11/02/25 Unknown History release fluticasone propionate 50 2 spray intranasal Q12H 09/20/25 11/02/25 Unknown History mcg/actuation nasal spray,suspension hydroxyzine HCl 25 mg tablet 25 mg PO TID PRN itching 09/20/25 11/02/25 Unknown History lamotrigine 150 mg tablet 150 mg PO Q12H 09/20/25 11/02/25 Unknown History levetiracetam 500 mg tablet 500 mg PO Q12H 09/20/25 11/02/25 Unknown History levothyroxine 75 mcg tablet 75 mcg PO DAILY 09/20/25 11/02/25 Unknown History loratadine 10 mg tablet (Allergy 10 mg PO DAILY 09/20/25 11/02/25 Unknown History Relief (loratadine)) olopatadine 0.1 % eye drops 1 drp EACH EYE BID PRN dry eyes 09/20/25 11/02/25 Unknown History ondansetron HCl 4 mg tablet 4 mg PO Q6H PRN nausea and vomiting 09/20/25 11/02/25 Unknown History pantoprazole 40 mg tablet,delayed 40 mg PO Q12H 09/20/25 11/02/25 Unknown History release ropinirole 0.5 mg tablet 0.5 mg PO HS 09/20/25 11/02/25 Unknown History sennosides 8.6 mg tablet (Laxative 8.6 mg PO BID PRN constipation 09/20/25 11/02/25 Unknown History (sennosides)) sucralfate 1 gram tablet 1 g PO QID 09/20/25 11/02/25 Unknown History trazodone 100 mg tablet 200 mg PO HS 09/20/25 11/02/25 Unknown History ursodiol 300 mg capsule 300 mg PO Q12H 09/20/25 11/02/25 Unknown History valacyclovir 500 mg tablet 500 mg PO DAILY 09/20/25 11/02/25 Unknown History albuterol sulfate 90 mcg/actuation 2 puff inhalation Q4H PRN 11/02/25 11/02/25 Unknown History aerosol inhaler shortness of breath or wheezing Allergies Allergy/AdvReac Type Severity Reaction Status Date / Time trimethoprim Allergy Mild Unknown Verified 09/20/25 20:25 lithium Allergy Unknown Verified 09/20/25 20:25 Sulfa (Sulfonamide Allergy Unknown Verified 09/20/25 20:25 Antibiotics) PMFSH Past Medical History Medical History B-cell acute lymphoblastic leukemia (2023) PTSD (post-traumatic stress disorder) Hypothyroidism Alcohol addiction Obstructive sleep apnea Bipolar disorder Seizure disorder Migraine headache CVA (cerebral vascular accident) Surgical History Surgical History (Updated 09/21/25 @ 02:40 by Carissa Vera DO) History of blepharoplasty History of foot surgery [place] History of left oophorectomy Due to endometriosis History of section Family History Family History (Updated 09/21/25 @ 02:26 by Carissa Vera DO) Other Unknown family medical history Social History Social History (Updated 09/21/25 @ 02:29 by Carissa Vera DO) Social History: The patient lived in [place] until she came to [place] for treatment of her B-cell acute lymphoblastic leukemia in 2023. 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 She has 1 daughter and 1 grandson. She reports she is a lifelong nonsmoker. She denies history of heavy alcohol use despite being actively in toxic a did at the time of EMS evaluation on the and on arrival to the hospital on the 20 September 2025. She denies history of illicit substance use. The patient states that she does have some college Education but it does not sound like that she has a bachelor's degree. Code status: Full code Surrogate decision maker: Daughter Smoking status: Never smoker Alcohol intake: current Substance use: never Last use: pt states she hasn't drank for 1 month, binge drank past 2 days Lack of Transportation: No Lack of Food: Never True Current Housing: I Have Housing Concerned About Future Housing: No Difficulty Paying Gas/Electric Bills: No Difficulty Paying for Meds: No Currently Unemployed: No Education: Bachelor's Degree Difficulty w/ Childcare or Family Care: No Spiritual care concerns: No Exam Const: General: no acute distress and intoxicated appearing Nutritional Appearance: average body habitus Orientation/consciousness: patient oriented x3 HENMT: Head: normal to inspection Face/Nose/Sinus: face symmetric Face and sinus: face symmetric Eyes: Pupils: Equal, round and reactive pupils present EOM: EOMs intact bilaterally Chest: Chest palpation & inspection: normal inspection of the chest Resp: Effort & Inspection: normal respiratory effort and able to speak in complete sentences Auscultation: clear to auscultation bilaterally Cardio: Rate: tachycardic Rhythm: regular rhythm GI: GI Palp: Yes abdominal tenderness (suprapubic) Auscultation: normal bowel sounds Back/Spine/Pelvis: Back: no CVA tenderness Skin: General skin exam: normal color Neuro: General: patient oriented x3 and no focal motor deficits Course Reevaluation(s) Date: 11/02/25 Time: 15:02 Consultations Hospitalist: Time of Consult: 14:32 I have discussed the care of this patient with the following provider: Kameron ayons to tele, will empirically give antibiotics. Vital Signs Vital signs: Vital Signs Temperature 99 F 11/02/25 10:26 Pulse Rate 104 H 11/02/25 10:26 Respiratory Rate 15 11/02/25 10:26 Blood Pressure 159/76 H 11/02/25 10:26 Pulse Oximetry 94 11/02/25 10:26 Oxygen Delivery Room Air 11/02/25 10:26 Temperature 99.2 F 11/02/25 20:15 Pulse Rate 101 H 11/02/25 20:15 Respiratory Rate 20 11/02/25 20:15 Blood Pressure 154/61 H 11/02/25 20:15 Pulse Oximetry 95 11/02/25 20:15 Oxygen Delivery Room Air 11/02/25 10:26 [facility] Narrative Medical decision making narrative: Patient presents intoxicated with lower abdominal pain. labs ordered and zofran 4 mg IV ordered. Patient;s labs show elevated wbc 18 which may shows sign of infection or be related to her malignancy.Lactic acid is elevated 4.5 which may be sepsis or dehydration. She also has history of seizures. I ordered IV fluid bolus 30 ml/ KG for hydration for possible sepsis. Chest xray and CT abdomen ordered to assess for infectious source. UA negative for infection. chest xray is negative and CT did not show infection but showed urinary retention. Johnson catheter ordered and placed. Patient continued to have nausea so 2nd dose of zofran 4 mg IV. Gallbladder distended but she does not hace RUQ tenderness. I ordered CIWa. I spoke with hospitalist who accepts admission. WE decided to started antibiotics until sepsis ruled out although no infectious souce found yet. Patient tachycardic. IV fluids going slow as patient constantly moving. Nursing attempting to reajust. Differential Diagnosis Differential Diagnosis: alcohol intoxication, alcohol withdrawal, sbo, abscess, UTI, pyelonprhitis, kidney stone, dehydration, electrolyte abnormalities Medical Records I have reviewed the following patient records and this information was taken into consideration when formulating the assessment and plan.: previous labs, previous ER visits and previous hospitalizations Lab Data [facility] Lab Attestation statement: I personally reviewed the patient's lab results. 11/02/25 11:34 11/02/25 11:34 Labs: Lab Results 11/02/25 11/02/25 Range/Units 11:31 11:34 WBC 18.6 H (4.5-10.0) K/mm3 RBC 3.89 L (4.2-5.4) M/mm3 Hgb 11.9 L (12.0-15.0) g/dL Hct 37.3 (37.0-47.0) % MCV 95.9 (80-100) fl MCH 30.6 (26-34) pg MCHC 31.9 L (32-36) g/dl RDW 19.7 H (11.5-14.5) % Plt Count 483 H D (150-375) k/mm3 MPV 8.9 (7.4-10.4) fl Immature Gran % (Auto) 0.9 H (0-0.5) % Neut % (Auto) 78.5 H (45.5-73.1) % Lymph % (Auto) 12.0 L (18.3-44.2) % Cocke % (Auto) 8.2 (2.6-8.5) % Eos % (Auto) 0.1 (0-4.4) % Baso % (Auto) 0.3 (0.2-1.2) % Lymph # (Auto) 2.23 (0.9-3.2) K/mm3 Cocke # (Auto) 1.5 H (0.1-0.6) K/mm3 Eos # (Auto) 0.0 (0-0.3) K/mm3 Baso # (Auto) 0.1 (0.0-0.1) K/mm3 Abs Immat Gran (auto) 0.16 H (0.00-0.031) K/mm3 Absolute Neuts (auto) 14.6 H (1.3-6.7) K/mm3 Absolute Nucleated RBC 0.000 (0.0-0.012) K/mm3 Nucleated RBC % 0.0 (0.0-0.2) % Absolute Retic 0.24 H (0.02-0.10) 10^6/uL Percent Retic 6.16 H (0.7-4.3) % Immature Retic Fraction 24.0 H (3.0-15.9) % Retic Hgb Content 34.6 (28.2-36.6) pg PT 14.3 (11.1-14.7) Seconds INR 1.1 Sodium 136 L (137-145) mmol/L Potassium 4.3 (3.4-5.0) mmol/L Chloride 98 (98-107) mmol/L Carbon Dioxide 13 L (22-30) mmol/L Anion Gap 25 H (4-12) mmol/L BUN 15 D (7-17) mg/dL Creatinine 1.26 H (0.7-1.0) mg/dL Estim Creat Clear Calc 47 ml/min Estimated GFR 42 L (59 - ) Glucose 101 (65-110) mg/dL Lactic Acid 4.5 H* (0.7-2.0) mmol/L Calcium 9.0 (8.4-10.2) mg/dL Total Bilirubin 1.0 (0.2-1.3) mg/dL AST 54 H (14-36) U/L ALT 35 (6-35) U/L Alkaline Phosphatase 162 H (38-126) U/L Total Protein 8.6 H (6.3-8.2) g/dL Albumin 5.5 H (3.5-5.1) g/dL Lipase 43 (23-300) U/L Urine Color Yellow (Yellow) Urine Appearance Clear (Clear) Urine pH 5.5 (5.0-9.0) Ur Specific [place] 1.007 (1.001-1.035) Urine Protein Negative (Negative) mg/dL Urine Glucose (UA) Negative (Negative) mg/dL Urine Ketones Negative (Negative) mg/dL Ur Blood (Man) 3+ H (Negative) Urine Nitrate Negative (Negative) Urine Bilirubin Negative (Negative) Urine Urobilinogen 0.2 (<2.0) mg/dL Leukocyte Esterase Rfl Trace H (Negative) TAVARES/UL Urine RBC 0-2 (0-2) /hpf Urine WBC 0-5 (0-3) /hpf Ur Squamous Epith Cells None seen (Few) /hpf Urine Bacteria None seen /hpf Urine Casts 0-2 Urine Opiates Screen Negative (Negative) Urine Methadone Screen Negative (Negative) Ur Barbiturates Screen Negative (Negative) Ur Phencyclidine Scrn Negative (Negative) Ur Amphetamine Screen Negative (Negative) U Benzodiazepines Scrn Negative (Negative) Urine Cocaine Screen Negative (Negative) U Cannabinoids Screen Negative (Negative) Ethyl Alcohol 236 (<10) mg/dL Imaging Data Radiologist's impression: ITS Impressions Abdomen/Pelvis CT 11/02/25 12:31 IMPRESSION: 1. Markedly distended bladder with mild bilateral hydronephrosis and hydroureter. 2. Gallbladder distention, which may be secondary to fasting. Correlate with physical exam to exclude acute cholecystitis. 3. Diffuse hepatic steatosis. 4. Moderate-sized sliding hiatal hernia. Chest X-Ray 11/02/25 12:32 IMPRESSION: 1. No acute cardiopulmonary disease. ECG Data EKG #1: Attestation: I personally reviewed and interpreted this ECG as follows: ECG completion date: 11/02/25 ECG completion time: 11:05 tachycardia (110), sinus rhythm, no ST changes and NL axis Critical Care Time Critical Care Time Time Type: Intermittent Documenting medical record: 15 minutes Review of results (EKG's, labs, imaging): 15 minutes Serial repeat bedside evaluation: 10 minutes Discussing case with multiple memebers of the care team and consultants: 5 minutes Total Critical Care Time: 45 Discharge Plan Discharge Clinical Impression: Lactic acidosis Alcoholic intoxication Qualifiers: Complication of substance-induced condition: with unspecified complication Qualified Code(s): F10.929 - Alcohol use, unspecified with intoxication, unspecified Patient Disposition: Still a Patient Condition: Guarded Prognosis
[2025-11-02 12:05] LABS: Cannabinoid Screen Urine Negative (Negative)
[2025-11-02] MEDS: SODIUM CHLORIDE 0.9% IV 1,000 ML 999 ML IV CONT ×2 (13:13)
[2025-11-02] MEDS: SODIUM CHLORIDE 0.9% IV 900 ML 999 ML IV CONT (14:16)
--- NOTE | 2025-11-02 14:17 | PC.NURSE ---
Pt continues to bend arm with IVF. Pt educated and education continues to be reinforced to keep arm straight in order to keep receiving medication. Pt continues to bend arm. Arm board applied.
--- NOTE | 2025-11-02 15:50 | PM.IMHP2 ---
H&P: HPI History of Present Illness Date/Time: 11/02/25 15:50 Chief Complaint: UTI symptoms Narrative: 65-year-old female past medical history of alcoholism, acute lymphocytic leukemia/B-cell, bipolar disorder, TIAs, seizure disorder, [place] presents to the ED on 11/02/2025 from [facility] with complaints of lower abdominal pain. Patient states her abdominal pain is severe and worse with movement. She admits to be in under the influence of alcohol but will not provide further information on the amount she drank. Patient reported to EMS that she began having pain with urination roughly 10 hours prior. She then stated that she did not know if her urine was discolored because she has not been able to urinate. Patient was visibly intoxicated and admitted so. EMS noted large quantities of empty alcohol containers present. History limited due to patients refusal and repeatedly stating I am so anxious. when asked if patient takes anything at home for anxiety she responds 50 years of benzos, concurrently Klonopin. Patient is alert and oriented but difficult to obtain much further information from. She requires constant redirection, maintains poor eye contact, has her head slumped down, and only mentions her anxiety. Patient was admitted from September 20 to September 25 with multiple complaints and overall not feeling well. Patient was found to be in rhabdomyolysis as she had not gotten out of bed for 3 days prior to admission due to her alcohol consumption. She had missed several days of her medications. initial vital signs 139/76, HR 104, respirations 15, 99? F, 94% on room air. Labs revealed leukocytosis with WBC 18.6. Platelets 483. Sodium 136, carbon dioxide 13, anion gap 25, creatinine 1.26 with GFR 42. Initial lactic acid 4.5. AST 54, alk-phos 162. UA without sign of infection. Ethyl alcohol 236. EKG was sinus tach, borderline ST-T-wave abnormality. Chest x-ray with no acute cardiopulmonary disease. CT abdomen pelvis reveals markedly distended bladder with bilateral hydronephrosis and hydroureter, gallbladder distention could be secondary to fasting. Diffuse hepatic steatosis. Review of Systems Review of Systems: ROS unobtainable: Yes unobtainable due to mental status [facility] Past Medical History Medical History (Updated 11/02/25 @ 23:32 by Christina F. Vega, LINE DRIVER) B-cell acute lymphoblastic leukemia (2023) PTSD (post-traumatic stress disorder) Hypothyroidism Alcohol addiction Obstructive sleep apnea Bipolar disorder Seizure disorder Migraine headache CVA (cerebral vascular accident) Surgical History Surgical History (Updated 09/21/25 @ 02:40 by Carissa Vera DO) History of blepharoplasty History of foot surgery [place] History of left oophorectomy Due to endometriosis History of section Family History Family History (Updated 09/21/25 @ 02:26 by Carissa Vera DO) Other Unknown family medical history Social History Social History (Updated 09/21/25 @ 02:29 by Carissa Vera DO) Social History: The patient lived in [place] until she came to [place] for treatment of her B-cell acute lymphoblastic leukemia in 2023. 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 She has 1 daughter and 1 grandson. She reports she is a lifelong nonsmoker. She denies history of heavy alcohol use despite being actively in toxic a did at the time of EMS evaluation on the and on arrival to the hospital on the 20 September 2025. She denies history of illicit substance use. The patient states that she does have some college Education but it does not sound like that she has a bachelor's degree. Code status: Full code Surrogate decision maker: Daughter Smoking status: Never smoker Alcohol intake: current Substance use: never Last use: pt states she hasn't drank for 1 month, binge drank past 2 days Lack of Transportation: No Lack of Food: Never True Current Housing: I Have Housing Concerned About Future Housing: No Difficulty Paying Gas/Electric Bills: No Difficulty Paying for Meds: No Currently Unemployed: No Education: Bachelor's Degree Difficulty w/ Childcare or Family Care: No Spiritual care concerns: No Meds Home Medications and Allergies Home Medications ?Medication ?Instructions ?Recorded ?Confirmed ?Type aspirin 81 mg capsule 81 mg PO DAILY 09/20/25 11/02/25 History atorvastatin 40 mg tablet 40 mg PO QPM 09/20/25 11/02/25 History clonazepam 0.5 mg tablet 0.75 mg PO Q12H 09/20/25 11/02/25 History clonazepam 1 mg tablet 1 mg PO .@1200 09/20/25 11/02/25 History dapsone 100 mg tablet 100 mg PO DAILY 09/20/25 11/02/25 History dasatinib 70 mg tablet (Phyrago) 70 mg PO DAILY 09/20/25 11/02/25 History duloxetine 60 mg capsule,delayed 60 mg PO DAILY 09/20/25 11/02/25 History release fluticasone propionate 50 2 spray intranasal Q12H 09/20/25 11/02/25 History mcg/actuation nasal spray,suspension hydroxyzine HCl 25 mg tablet 25 mg PO TID PRN itching 09/20/25 11/02/25 History lamotrigine 150 mg tablet 150 mg PO Q12H 09/20/25 11/02/25 History levetiracetam 500 mg tablet 500 mg PO Q12H 09/20/25 11/02/25 History levothyroxine 75 mcg tablet 75 mcg PO DAILY 09/20/25 11/02/25 History loratadine 10 mg tablet (Allergy 10 mg PO DAILY 09/20/25 11/02/25 History Relief (loratadine)) olopatadine 0.1 % eye drops 1 drp EACH EYE BID PRN dry eyes 09/20/25 11/02/25 History ondansetron HCl 4 mg tablet 4 mg PO Q6H PRN nausea and vomiting 09/20/25 11/02/25 History pantoprazole 40 mg tablet,delayed 40 mg PO Q12H 09/20/25 11/02/25 History release ropinirole 0.5 mg tablet 0.5 mg PO HS 09/20/25 11/02/25 History sennosides 8.6 mg tablet (Laxative 8.6 mg PO BID PRN constipation 09/20/25 11/02/25 History (sennosides)) sucralfate 1 gram tablet 1 g PO QID 09/20/25 11/02/25 History trazodone 100 mg tablet 200 mg PO HS 09/20/25 11/02/25 History ursodiol 300 mg capsule 300 mg PO Q12H 09/20/25 11/02/25 History valacyclovir 500 mg tablet 500 mg PO DAILY 09/20/25 11/02/25 History folic acid 1 mg tablet 1 mg PO DAILY #30 tabs 09/25/25 11/02/25 Rx metoprolol tartrate 25 mg tablet 25 mg PO Q12HR #60 tabs 09/25/25 11/02/25 Rx thiamine HCl (vitamin B1) 100 mg 100 mg PO DAILY #30 tabs 09/25/25 11/02/25 Rx tablet (Vitamin B-1) albuterol sulfate 90 mcg/actuation 2 puff inhalation Q4H PRN 11/02/25 11/02/25 History aerosol inhaler shortness of breath or wheezing Allergies Allergy/AdvReac Type Severity Reaction Status Date / Time trimethoprim Allergy Mild Unknown Verified 09/20/25 20:25 lithium Allergy Unknown Verified 09/20/25 20:25 Sulfa (Sulfonamide Allergy Unknown Verified 09/20/25 20:25 Antibiotics) Vital Signs Vital Signs - 24 hr 11/02/25 10:26 11/02/25 13:11 11/02/25 14:08 Temperature 99 F Pulse Rate 104 H 116 H 127 H Respiratory Rate 15 20 14 Blood Pressure 159/76 H 147/75 H 140/76 Pulse Oximetry 94 100 97 Oxygen Delivery Room Air Exam Narrative: GENERAL: Disheveled. Mild distress HEAD: Normocephalic, atraumatic. EYES: Conjunctivae clear. NOSE: Normal no drainage. THROAT: Pharynx clear, no exudate. NECK: Trachea midline. No adenopathy, no masses. RESPIRATORY: Airway patent, respirations nonlabored. CTA. CARDIOVASCULAR: tachycardic with regular rhythm BREASTS: Defer GASTROINTESTINAL: tenderness in the suprapubic area with palpation. Bowel sounds normal in all quadrants. GENITOURINARY: Defer MUSCULOSKELETAL: Moves all extremities. No gross deformities. SKIN: Warm, dry, normal color. NEURO: A&O X4. Speech clear PSYCHIATRIC: Poor eye contact. Refusing to answer some questions. Results Labs Labs: Short CBC 11/02/25 Range/Units 11:34 WBC 18.6 H (4.5-10.0) K/mm3 Hgb 11.9 L (12.0-15.0) g/dL Hct 37.3 (37.0-47.0) % Plt Count 483 H D (150-375) k/mm3 BMP 11/02/25 11:34 Sodium 136 L Potassium 4.3 Chloride 98 Carbon Dioxide 13 L BUN 15 D Creatinine 1.26 H Glucose 101 Calcium 9.0 Liver Function 11/02/25 Range/Units 11:34 Total Bilirubin 1.0 (0.2-1.3) mg/dL AST 54 H (14-36) U/L ALT 35 (6-35) U/L Alkaline Phosphatase 162 H (38-126) U/L Albumin 5.5 H (3.5-5.1) g/dL Urine 11/02/25 Range/Units 11:31 Urine Color Yellow (Yellow) Urine Appearance Clear (Clear) Urine pH 5.5 (5.0-9.0) Ur Specific [place] 1.007 (1.001-1.035) Urine Protein Negative (Negative) mg/dL Urine Glucose (UA) Negative (Negative) mg/dL Quality VTE Prophylaxis VTE prophylaxis: pharmacologic ordered Assessment and Plan Assessment and plan (1) Acute urinary retention: Code(s): R33.8 - Other retention of urine Status: Acute Assessment and Plan: Patient presents with lower abdominal pain that started about 10 hours prior to arrival. CT abdomen pelvis reveals markedly distended bladder with bilateral hydronephrosis and hydroureter. UA without signs of infection. Unclear etiology of acute retention. - Johnson in place - Consult Urology - No obstructive pathology noted on CT (2) RO (acute kidney injury): Code(s): N17.9 - Acute kidney failure, unspecified Status: Acute Assessment and Plan: likely related to #1. UA without sign of infection. -Cr 1.26 on admission (baseline Cr 0.5-0.6) -s/p 3L of IVF - NS @ 150 started on 11/02 - Johnson in place - monitor I&Os - Renal dose med, avoid nephrotoxins - trend renal function (3) Lactic acidosis: Code(s): E87.20 - Acidosis, unspecified Status: Acute Assessment and Plan: lactic acid 4.5. Sepsis versus dehydration; most likely dehydration. No infectious source found on CT abdomen pelvis. UA without signs of infection. Afebrile - 30 mL/kg given in ED with improvement to 2.3 - NS @ 150 - trend lactic (4) Leukocytosis: Qualifiers: Leukocytosis type: unspecified Qualified Code(s): D72.829 - Elevated white blood cell count, unspecified Code(s): D72.829 - Elevated white blood cell count, unspecified Status: Acute Assessment and Plan: WBC on admit 18.6. Patient was neutropenic during last admission which was thought to be related to her ALL (5) B-cell acute lymphoblastic leukemia: Onset Date: 2023 Code(s): C91.00 - Acute lymphoblastic leukemia not having achieved remission Status: Chronic Assessment and Plan: continue dapsone and Phyrago. (6) Alcoholic intoxication: Qualifiers: Complication of substance-induced condition: with unspecified complication Qualified Code(s): F10.929 - Alcohol use, unspecified with intoxication, unspecified Code(s): F10.929 - Alcohol use, unspecified with intoxication, unspecified Status: Acute Assessment and Plan: patient intoxicated admit with Ethyl alcohol level 236. Patient refuses to answer questions on alcohol use aside from stating she is currently intoxicated. - [facility] protocol in place - patient is receiving scheduled clonazepam - diazepam p.r.n. - seizure precautions - neurochecks Q4H - IV fluids NS at 150 - antiemetics PRN (7) Bipolar disorder: Qualifiers: Active/Remission status: currently active Current bipolar episode type: depressed Current episode severity: unspecified Qualified Code(s): F31.30 - Bipolar disorder, current episode depressed, mild or moderate severity, unspecified Code(s): F31.9 - Bipolar disorder, unspecified Status: Chronic Assessment and Plan: Continue clonazepam, duloxetine and lamotrigine Prior Studies I have reviewed the following patient records and this information was taken into consideration when formulating the assessment and plan.: previous labs, previous ER visits, previous hospitalizations and previous clinic visits Time Spent with Patient Time with patient: 75 minutes or greater Hospitalist MIPS Advance Care Plan I have confirmed that the patient's Advanced Care Plan is present, code status is documented, or surrogate decision maker is listed in patient medical record.: Yes Medication Reconciliation I have utilized all available resources to obtain, update and review the patients current medications (includes all prescriptions, OTC, herbals, cannabis, and nutritional supplements).: Yes
[2025-11-02] MEDS: CEFEPIME 2 GM in SODIUM CHLORIDE 0.9% IV 50 ML 100 ML IVPB (17:01)
[2025-11-02] MEDS: VANCOMYCIN 1,500 MG/NS 500 ML 1,500 MG/500 ML BAG 250 MG IVPB (17:51)
[2025-11-02] MEDS: chlordiazePOXIDE (*CRX) 25 MG CAPSULE 50 MG PO (17:56)
--- NOTE | 2025-11-02 18:01 | WPCEDHO ---
ED Hand Off Checklist All vitals saved:yes IV Site documented:yes All med administrations documented:yes Triage Note Triage Note Pt to ED from [facility] via 11/02/25 10:26 [facility] co UTI pain and pain with urination that started yesterday. Pt is intoxicated and noncooperative on arrival. EMS report they saw 2 empty gallons of vodka on their arrival, staff assume it was consumed over the last 2-3 days. Pt refusing to answer how much she drank today, pt breath smells like ETOH. Allergies trimethoprim Allergy (Mild, Verified 09/20/25 20:25) Unknown lithium Allergy (Verified 09/20/25 20:25) Unknown Sulfa (Sulfonamide Antibiotics) Allergy (Verified 09/20/25 20:25) Unknown Family History (Last Updated 09/21/25 @ 02:26 by Carissa Vera DO) Other Unknown family medical history Active Medications including assessments/comments Chlordiazepoxide HCl (Chlordiazepoxide (*Crx) 25 Mg Capsule) 50 mg PO Q6HR DYLLAN Last Admin: 11/02/25 17:56 Dose: 50 mg Documented By: RASHAUN Thiamine HCl 100 mg/ Folic Acid 1 mg/ Magnesium Sulfate 1 gm/ Multivitamins 5 ml/Multivitamins 5 ml/ Sodium Chloride 1,013.2 mls @ 125 mls/hr IV CONT .Q8H7M ONE Stop: 11/02/25 19:03 Last Admin: 11/02/25 11:40 Dose: 125 mls/hr Documented By: RASHAUN Co-signed By: JOSE ALEJANDRO Infusion/Titration Document 11/02/25 11:40 MLI (Rec: 11/02/25 11:41 MLI [id number]) Co-signed By Litzy Carrillo RN Intake IV Site Peripheral Access Right Antecubital Container Volume 1,013.2 Waste Amount 0 Dosing Infusion Rate 125 Cumulative Dose Not Applicable Increase/Decrease Started Elapsed Time Elapsed Time ( 0m minutes) Magnesium Sulfate Infusion Document 11/02/25 11:40 MLI (Rec: 11/02/25 11:41 MLI [id number]) Co-signed By Litzy Carrillo, store lead Action Magnesium Sulfate Initiated Infusion Action Ondansetron HCl (Ondansetron Inj 4 Mg/2 Ml Vial) 4 mg IV PUSH Q4H PRN PRN Reason: Nausea Last Admin: 11/02/25 17:52 Dose: 4 mg Documented By: RASHAUN Administered/Completed Medications Discontinued Medications Sodium Chloride (Normal Saline Iv) 1,000 mls @ 999 mls/hr IV CONT .Q1H1M STA Stop: 11/02/25 13:00 Last Infusion: 11/02/25 16:17 Dose: Infused Documented By: Admin: 11/02/25 13:13 Dose: 999 mls/hr Documented By: RASHAUN Sodium Chloride (Normal Saline Iv) 1,000 mls @ 999 mls/hr IV CONT .Q1H1M STA Stop: 11/02/25 13:00 Last Infusion: 11/02/25 16:17 Dose: Infused Documented By: Admin: 11/02/25 13:13 Dose: 999 mls/hr Documented By: RASHAUN Sodium Chloride (Normal Saline Iv) 900 mls @ 999 mls/hr IV CONT .Q55M STA Stop: 11/02/25 12:54 Last Infusion: 11/02/25 17:11 Dose: Infused Documented By: MLRuperto Admin: 11/02/25 14:16 Dose: 999 mls/hr Documented By: RASHAUN Cefepime HCl 2 gm/ Sodium (Chloride) 50 mls @ 100 mls/hr IVPB ONCE STA Stop: 11/02/25 15:05 Last Infusion: 11/02/25 17:49 Dose: Infused Documented By: Admin: 11/02/25 17:01 Dose: 100 mls/hr Documented By: RASHAUN Vancomycin HCl (Vancomycin 1,500 Mg/Ns 500 Ml) 1,500 mg in 500 mls @ 250 mls/hr IVPB ONCE ONE Stop: 11/02/25 16:56 Last Admin: 11/02/25 17:51 Dose: 250 mls/hr Documented By: RASHAUN Ondansetron HCl (Ondansetron Inj 4 Mg/2 Ml Vial) 4 mg IV PUSH ONCE STA Stop: 11/02/25 10:57 Last Admin: 11/02/25 11:37 Dose: 4 mg Documented By: RASHAUN Ondansetron HCl (Ondansetron Inj 4 Mg/2 Ml Vial) 4 mg IV PUSH ONCE STA Stop: 11/02/25 13:07 Last Admin: 11/02/25 13:21 Dose: 4 mg Documented By: RASHAUN Notes 11/02/25 14:17 Nurse Note by Linda Kate Pt continues to bend arm with IVF. Pt educated and education continues to be reinforced to keep arm straight in order to keep receiving medication. Pt continues to bend arm. Arm board applied. Initialized on 11/02/25 14:17 - END OF NOTE Interventions/Assessments General Assessment Start: 11/02/25 10:26 Freq: Status: Active Protocol: Document 11/02/25 10:41 MLI (Rec: 11/02/25 10:42 MLI [id number]) GA Gastrointestinal Assessment Gastrointestinal lower abd/groin pain Assessment WNL Gastrointestinal Pain Symptoms GA Genitourinary Assessment Genitourinary Painful Symptoms IV / Saline Lock, Insert Start: 11/02/25 10:26 Freq: Status: Active Protocol: Document 11/02/25 13:11 MLI (Rec: 11/02/25 13:11 MLI [id number]) IV Assessment Peripheral Access Left Antecubital IV Catheter Access Initiated IV Insertion Date 11/02/25 IV Insertion Time 13:11 Catheter Gauge 20 IV Insertion 1 Attempts Ultrasound Used for Yes Placement IV Site Assessment WNL IV Care and WNL Maintenance Additional IV initiated by Pablo Velásquez RN Comments PA: Neurological Assessment Start: 11/02/25 14:41 Freq: Status: Active Protocol: Document 11/02/25 14:41 MLI (Rec: 11/02/25 14:41 MLI [id number]) Neurological Assessment Level of Alert,Awake Consciousness Arousable to Verbal Orientation Oriented to Person,Oriented to Place,Oriented to Time Neurological Weakness, General Symptoms Hallucination Type None Behavior Cooperative,Fatigued Patient Able to Comprehend Comprehension Memory Description Intact Last Vital Signs Temperature 99 F 11/02/25 13:31 Pulse Rate 116 H 11/02/25 17:07 Respiratory Rate 17 11/02/25 17:07 Pulse Oximetry 95 11/02/25 17:07 Blood Pressure 148/69 H 11/02/25 17:07 Blood Pressure Mean 95 11/02/25 17:07 Oxygen Delivery Room Air 11/02/25 10:26 Weight 96.3 kg 11/02/25 10:26 Last Result - Abnormals Only WBC 18.6 K/mm3 (4.5-10.0) H 11/02/25 11:34 RBC 3.89 M/mm3 (4.2-5.4) L 11/02/25 11:34 Hgb 11.9 g/dL (12.0-15.0) L 11/02/25 11:34 MCHC 31.9 g/dl (32-36) L 11/02/25 11:34 RDW 19.7 % (11.5-14.5) H 11/02/25 11:34 Plt Count 483 k/mm3 (150-375) H D 11/02/25 11:34 Immature Gran % (Auto) 0.9 % (0-0.5) H 11/02/25 11:34 Neut % (Auto) 78.5 % (45.5-73.1) H 11/02/25 11:34 Lymph % (Auto) 12.0 % (18.3-44.2) L 11/02/25 11:34 [place] # (Auto) 1.5 K/mm3 (0.1-0.6) H 11/02/25 11:34 Abs Immat Gran (auto) 0.16 K/mm3 (0.00-0.031) H 11/02/25 11:34 Absolute Neuts (auto) 14.6 K/mm3 (1.3-6.7) H 11/02/25 11:34 Absolute Retic 0.24 10^6/uL (0.02-0.10) H 11/02/25 11:34 Percent Retic 6.16 % (0.7-4.3) H 11/02/25 11:34 Immature Retic Fraction 24.0 % (3.0-15.9) H 11/02/25 11:34 Sodium 136 mmol/L (137-145) L 11/02/25 11:34 Carbon Dioxide 13 mmol/L (22-30) L 11/02/25 11:34 Anion Gap 25 mmol/L (4-12) H 11/02/25 11:34 Creatinine 1.26 mg/dL (0.7-1.0) H 11/02/25 11:34 Estimated GFR 42 (59-) L 11/02/25 11:34 Lactic Acid 4.5 mmol/L (0.7-2.0) H* 11/02/25 11:34 AST 54 U/L (14-36) H 11/02/25 11:34 Alkaline Phosphatase 162 U/L (38-126) H 11/02/25 11:34 Total Protein 8.6 g/dL (6.3-8.2) H 11/02/25 11:34 Albumin 5.5 g/dL (3.5-5.1) H 11/02/25 11:34 Ur Blood (Man) 3+ (Negative) H 11/02/25 11:31 Leukocyte Esterase Rfl Trace TAVARES/UL (Negative) H 11/02/25 11:31 Most Recent CIWA Score CIWA Total Score 10 11/02/25 14:39
--- NOTE | 2025-11-02 18:53 | ADMGEN ---
This patient, Deisy Nam, was admitted to Medical Room 247-. Patient/family oriented to hospital policies and general routines including ID bracelet, bed and alarms, visiting hours, pain management, procedures, bathroom and other care routines, personal items, smoking policy, room service/diet, and visiting hours. Information on how to activate the Rapid Response Team has been discussed. Patient/Family are encouraged to report perceived risks to care and to ask questions if they do not understand what they are told or what they should do.
[2025-11-02] MEDS: ENOXAPARIN 40 MG/0.4 ML SYRINGE SUB-Q (22:57)
[2025-11-02] MEDS: SODIUM CHLORIDE 0.9% IV 1,000 ML 125 ML IV CONT (22:57)
[2025-11-02] MEDS: PANTOPRAZOLE 40 MG TABLET PO (22:58)
[2025-11-02] MEDS: clonazePAM (*CRX) 0.5 MG TABLET PO (22:58)
[2025-11-02] MEDS: METOPROLOL TARTRATE 25 MG TABLET PO (22:58)
[2025-11-02] MEDS: lamoTRIgine 50 MG TABLET PO (23:02)
[2025-11-02] MEDS: clonazePAM (*CRX) 0.25 MG TABLET PO (23:30)
[2025-11-02 23:49] LABS: Hematocrit 29.4 % (37.0-47.0); Hemoglobin 8.9 g/dL (12.0-15.0); Immature Granulocyte Percent A 0.3 % (0-0.5); Immature Platelet Fraction Pct 1.5 % (0.9-11.2); Lymphocytes Absolute Auto 1.12 K/mm3 (0.9-3.2); Mean Corpuscular HGB Conc 30.3 g/dl (32-36); Mean Corpuscular Hemoglobin 30.8 pg (26-34); Mean Corpuscular Volume 101.7 fl (80-100); Nucleated Red Blood Cells Absolute Auto 0.000 K/mm3 (0.0-0.012); Nucleated Red Blood Cells Perc 0.0 % (0.0-0.2); Platelet Count Result 160 k/mm3 (150-375); Red Blood Count 2.89 M/mm3 (4.2-5.4); White Blood Count 6.8 K/mm3 (4.5-10.0)
[2025-11-03] VITALS (13 sets, daily range): BP systolic 109–158; BP diastolic 47–74; PULSE 70–100; RESP 18–20; TEMP 35.9–36.9; O2SAT 91–98
[2025-11-03 00:09] LABS: Anisocytosis 1+
[2025-11-03 00:10] LABS: Ovalocytes Occasional; Schistocytes None Seen
[2025-11-03 00:26] LABS: Anion Gap 12 mmol/L (4-12); Blood Urea Nitrogen 12 mg/dL (7-17); Calcium 7.8 mg/dL (8.4-10.2); Carbon Dioxide 16 mmol/L (22-30); Chloride 106 mmol/L (98-107); Estimated CRCL calculation 71 ml/min; Estimated Glomerular Filt Rate > 60; Glucose 91 mg/dL (65-110); Potassium 5.6 mmol/L (3.4-5.0); Sodium 134 mmol/L (137-145)
[2025-11-03 05:14] LABS: Hematocrit 27.3 % (37.0-47.0); Hemoglobin 8.3 g/dL (12.0-15.0); Immature Granulocyte Percent A 0.5 % (0-0.5); Lymphocytes Absolute Auto 1.03 K/mm3 (0.9-3.2); Mean Corpuscular HGB Conc 30.4 g/dl (32-36); Mean Corpuscular Hemoglobin 30.4 pg (26-34); Mean Corpuscular Volume 100.0 fl (80-100); Nucleated Red Blood Cells Absolute Auto 0.000 K/mm3 (0.0-0.012); Nucleated Red Blood Cells Perc 0.0 % (0.0-0.2); Platelet Count Result 194 k/mm3 (150-375); Red Blood Count 2.73 M/mm3 (4.2-5.4); White Blood Count 3.8 K/mm3 (4.5-10.0)
[2025-11-03 05:42] LABS: Alanine Aminotransferase 24 U/L (6-35); Albumin Level 3.9 g/dL (3.5-5.1); Alkaline Phosphatase 115 U/L (38-126); Anion Gap 9 mmol/L (4-12); Aspartate Amino Transferase 43 U/L (14-36); Bilirubin,Total 1.0 mg/dL (0.2-1.3); Blood Urea Nitrogen 11 mg/dL (7-17); Calcium 8.2 mg/dL (8.4-10.2); Carbon Dioxide 20 mmol/L (22-30); Chloride 106 mmol/L (98-107); Estimated CRCL calculation 71 ml/min; Estimated Glomerular Filt Rate > 60; Glucose 88 mg/dL (65-110); Potassium 4.2 mmol/L (3.4-5.0); Sodium 135 mmol/L (137-145); Total Protein 6.2 g/dL (6.3-8.2)
[2025-11-03] MEDS: LEVOTHYROXINE SODIUM 75 MCG TABLET PO (06:44)
[2025-11-03] MEDS: clonazePAM (*CRX) 0.5 MG TABLET PO (06:47)
[2025-11-03] MEDS: ONDANSETRON INJ 4 MG/2 ML VIAL IV PUSH ×3 (06:49→15:59)
--- NOTE | 2025-11-03 07:45 | P.PNIM_ITS ---
Assessment and Plan Assessment and Plan (1) Acute urinary retention: Code(s): R33.8 - Other retention of urine Status: Acute Assessment and Plan: Patient presents with lower abdominal pain that started about 10 hours prior to arrival. * CT abdomen pelvis reveals markedly distended bladder with bilateral hydronephrosis and hydroureter. * UA without signs of infection * Unclear etiology of acute retention * Johnson in place * No obstructive pathology noted on CT. * Consult Urology * Maintain bladder decompression until labs normalize and hydronephrosis resolves * Attempt a void trial prior to discharge, replace Johnson catheter if PVRs>250ml * Likely benefit from outpatient UDS if urinary retention persists (2) RO (acute kidney injury): Code(s): N17.9 - Acute kidney failure, unspecified Status: Acute Assessment and Plan: * Likely related to #1 - UA without sign of infection. * Cr 1.26 on admission (baseline Cr 0.5-0.6) * s/p 3L of IVF * NS @ 150 started on 11/02 * Johnson in place * monitor I&Os * Renal dose med, avoid nephrotoxins * trend renal function * Resolved (3) Lactic acidosis: Code(s): E87.20 - Acidosis, unspecified Status: Acute Assessment and Plan: * lactic acid 4.5. * Sepsis versus dehydration; most likely dehydration. * No infectious source found on CT abdomen pelvis. * UA without signs of infection. Afebrile * 30 mL/kg given in ED with improvement to 2.3 * NS @ 150 * trend lactic * Resolved (4) Alcoholic intoxication: Qualifiers: Complication of substance-induced condition: with unspecified complication Qualified Code(s): F10.929 - Alcohol use, unspecified with intoxication, unspecified Code(s): F10.929 - Alcohol use, unspecified with intoxication, unspecified Status: Acute Assessment and Plan: * patient intoxicated admit with Ethyl alcohol level 236. Patient refuses to answer questions on alcohol use aside from stating she is currently intoxicated. * CIWA protocol in place * Receiving scheduled clonazepam * Diazepam, antiemetics p.r.n. * Seizure precautions * Neurochecks Q4H * IV fluids NS at 150 (5) Leukocytosis: Qualifiers: Leukocytosis type: unspecified Qualified Code(s): D72.829 - Elevated white blood cell count, unspecified Code(s): D72.829 - Elevated white blood cell count, unspecified Status: Acute Assessment and Plan: * WBC on admit 18.6 * Patient neutropenic during last admission which was thought to be related to her ALL (6) B-cell acute lymphoblastic leukemia: Onset Date: 2023 Code(s): C91.00 - Acute lymphoblastic leukemia not having achieved remission Status: Chronic Assessment and Plan: * continue dapsone and Phyrago. (7) Bipolar disorder: Qualifiers: Active/Remission status: currently active Current bipolar episode type: depressed Current episode severity: unspecified Qualified Code(s): F31.30 - Bipolar disorder, current episode depressed, mild or moderate severity, unspecified Code(s): F31.9 - Bipolar disorder, unspecified Status: Chronic Assessment and Plan: * Continue clonazepam, duloxetine and lamotrigine Subjective Date/time seen: 11/03/25 07:45 Interval history: 65-year-old female past medical history of alcoholism, acute lymphocytic leukemia/B-cell, bipolar disorder, TIAs, seizure disorder, [place] presents to the ED on 11/02/2025 from [facility] with complaints of lower abdominal pain. 11/03/2025 Patient sitting comfortably in bed at time of examination. Denies any chest pain, shortness of breath, nausea/vomiting. Does have some lower abdominal discomfort associated with the urinary retention , however states that it is improved since time of catheter insertion. GI consulted, recommend continuing bladder decompression into labs normalized, may attempt void trial prior to discharge. Review of Systems Review of Systems: ROS unobtainable: Yes unobtainable due to mental status Exam Narrative: GENERAL: Disheveled. Mild distress HEAD: Normocephalic, atraumatic. EYES: Conjunctivae clear. NOSE: Normal no drainage. THROAT: Pharynx clear, no exudate. NECK: Trachea midline. No adenopathy, no masses. RESPIRATORY: Airway patent, respirations nonlabored. CTA. CARDIOVASCULAR: tachycardic with regular rhythm BREASTS: Defer GASTROINTESTINAL: tenderness in the suprapubic area with palpation. Bowel sounds normal in all quadrants. GENITOURINARY: Defer MUSCULOSKELETAL: Moves all extremities. No gross deformities. SKIN: Warm, dry, normal color. NEURO: A&O X4. Speech clear PSYCHIATRIC: Poor eye contact. Refusing to answer some questions. Objective Data Vital Signs Vital Signs: Vital Signs - 24 hr 11/02/25 10:26 11/02/25 10:34 11/02/25 10:47 Temperature 99 F Pulse Rate 104 H 110 H 110 H Respiratory Rate 15 17 16 Blood Pressure 159/76 H 159/76 H 138/64 Pulse Oximetry 94 95 97 Oxygen Delivery Room Air 11/02/25 11:01 11/02/25 12:27 11/02/25 12:45 Temperature Pulse Rate 110 H 131 H 119 H Respiratory Rate 19 20 17 Blood Pressure 157/67 H Pulse Oximetry 97 99 Oxygen Delivery 11/02/25 13:06 11/02/25 13:11 11/02/25 13:16 Temperature Pulse Rate 117 H 116 H 117 H Respiratory Rate 20 20 20 Blood Pressure 147/75 H 147/75 H 152/68 H Pulse Oximetry 100 100 98 Oxygen Delivery 11/02/25 13:31 11/02/25 13:46 11/02/25 14:01 Temperature 99 F Pulse Rate 114 H 117 H 119 H Respiratory Rate 21 H 23 H 15 Blood Pressure 142/73 H 143/70 H 140/76 Pulse Oximetry 98 98 98 Oxygen Delivery 11/02/25 14:08 11/02/25 14:17 11/02/25 14:31 Temperature Pulse Rate 127 H 122 H 117 H Respiratory Rate 14 17 19 Blood Pressure 140/76 145/82 H 140/75 Pulse Oximetry 97 99 Oxygen Delivery 11/02/25 14:45 11/02/25 14:46 11/02/25 15:00 Temperature Pulse Rate 120 H 118 H 115 H Respiratory Rate 14 12 20 Blood Pressure 147/62 H Pulse Oximetry 99 97 96 Oxygen Delivery 11/02/25 15:31 11/02/25 16:16 11/02/25 16:45 Temperature Pulse Rate 113 H 112 H 114 H Respiratory Rate 22 H 19 16 Blood Pressure 149/68 H 154/70 H Pulse Oximetry 94 92 93 Oxygen Delivery 11/02/25 17:07 11/02/25 20:00 11/02/25 20:00 Temperature Pulse Rate 116 H 93 Respiratory Rate 17 Blood Pressure 148/69 H Pulse Oximetry 95 Oxygen Delivery Room Air 11/02/25 20:15 11/02/25 22:58 11/03/25 00:00 Temperature 99.2 F Pulse Rate 101 H 99 100 Respiratory Rate 20 Blood Pressure 154/61 H Pulse Oximetry 95 Oxygen Delivery 11/03/25 03:53 11/03/25 04:00 Temperature 98.5 F Pulse Rate 81 87 Respiratory Rate 20 Blood Pressure 133/60 Pulse Oximetry 97 Oxygen Delivery Intake/Output Intake/Output: Intake & Output 10/31/25 11/01/25 11/02/25 11/03/25 23:59 23:59 23:59 23:59 Intake Total 2950 0 Output Total 2150 1100 Balance 800 -1100 Meds/Results Medications: Active Medications Generic Name Dose Route Start Last Admin Trade Name Freq PRN Reason Stop Dose Admin Aspirin 81 mg 11/03/25 08:00 Aspirin 81 Mg Chewable Tablet PO DAILY@0800 [facility] Atorvastatin Calcium 40 mg 11/03/25 18:00 Atorvastatin 40 Mg Tablet PO QPM DYLLAN Clonazepam 0.5 mg 11/02/25 22:15 11/03/25 06:47 Clonazepam (*Crx) 0.5 Mg Tablet PO 0.5 mg Q12HR DYLLAN Administration Clonazepam 1 mg 11/03/25 12:00 Clonazepam (*Crx) 0.5 Mg Tablet PO 1200 [facility] Dapsone 100 mg 11/03/25 09:00 Dapsone 25 Mg Tablet PO DAILY [facility] Diazepam 5 mg 11/02/25 16:15 Diazepam Inj (*Crx) 10 Mg/2 Ml Syringe IV PUSH Q2H PRN Alcohol Withdrawal Duloxetine HCl 60 mg 11/03/25 09:00 Duloxetine Hcl 60 Mg Capsule.Dr PO DAILY [facility] Enoxaparin Sodium 40 mg 11/02/25 22:05 11/02/25 22:57 Enoxaparin 40 Mg/0.4 Ml Syringe SUB-Q 40 mg HS DYLLAN Administration Fluticasone Propionate 2 spray 11/03/25 09:00 Fluticasone Propionate 0.05% Na Spr 16 Gm Btl (*Bkc) NASAL DAILY DYLLAN Folic Acid 1 mg 11/03/25 09:00 Folic Acid 1 Mg Tablet PO DAILY [facility] Hydroxyzine HCl 25 mg 11/02/25 22:15 Hydroxyzine Hcl 25 Mg Tablet PO TID PRN Itching Sodium Chloride 1,000 mls @ 125 mls/hr 11/02/25 21:55 11/02/25 22:57 Normal Saline Iv IV CONT 125 mls/hr .Q8H DYLLAN Administration Vancomycin HCl 1,500 mg in 500 mls @ 250 mls/hr 11/03/25 12:00 Vancomycin 1,500 Mg/Ns 500 Ml IVPB Q18H DYLLAN Lamotrigine 100 mg 11/02/25 22:50 11/02/25 22:59 Lamotrigine 100 Mg Tablet PO 100 mg Q12HR DLYLAN Administration Lamotrigine 50 mg 11/02/25 22:50 11/02/25 23:02 Lamotrigine 50 Mg Tablet PO 50 mg Q12HR DYLLAN Administration Levetiracetam 500 mg 11/02/25 22:15 11/02/25 22:58 Levetiracetam 500 Mg Tablet PO 500 mg Q12HR DYLLAN Administration Levothyroxine Sodium 75 mcg 11/03/25 06:30 11/03/25 06:44 Levothyroxine Sodium 75 Mcg Tablet PO 75 mcg DAILY@0630 DYLLAN Administration Loratadine 10 mg 11/03/25 09:00 Loratadine 10 Mg Tablet PO DAILY DYLLAN Metoprolol Tartrate 25 mg 11/02/25 22:25 11/02/25 22:58 Metoprolol Tartrate 25 Mg Tablet PO 25 mg Q12HR DYLLAN Administration Miscellaneous Information 0 each 11/02/25 23:10 Dasatinib [Phyrago] 70 Mg Tablet- Nonformulary. Please Obtain A Home Supply If Possible. XX 12/02/25 23:09 CLARIFY DYLLAN Non-Formulary Medication 70 mg 11/03/25 09:00 Dasatinib [Phyrago] PO 12/03/25 08:59 DAILY DYLLAN Ondansetron HCl 4 mg 11/02/25 14:38 11/03/25 06:49 Ondansetron Inj 4 Mg/2 Ml Vial IV PUSH 4 mg Q4H PRN Administration Nausea Pantoprazole Sodium 40 mg 11/02/25 22:15 11/02/25 22:58 Pantoprazole 40 Mg Tablet PO 40 mg Q12HR DYLLAN Administration Ropinirole HCl 0.5 mg 11/02/25 22:25 11/02/25 22:58 Ropinirole Hcl 0.5 Mg Tablet PO 0.5 mg HS DYLLAN Administration Senna 8.6 mg 11/02/25 22:15 Sennosides 8.6 Mg Tablet PO BID PRN Constipation Sucralfate 1 gm 11/03/25 07:30 Sucralfate 1 Gm Tablet PO 0730,1100,1600,2100 [facility] Thiamine HCl 100 mg 11/03/25 09:00 Thiamine Hcl 100 Mg Tablet PO DAILY [facility] Trazodone HCl 200 mg 11/02/25 22:35 11/02/25 22:58 Trazodone Hcl 50 Mg Tablet PO 200 mg HS DYLLAN Administration Ursodiol 300 mg 11/03/25 09:00 Ursodiol 300 Mg Capsule PO Q12HR [facility] Valacyclovir HCl 500 mg 11/03/25 09:00 Valacyclovir Hcl 500 Mg Tablet PO DAILY [facility] Radiology Results: ITS Impressions Abdomen/Pelvis CT 11/02/25 12:31 IMPRESSION: 1. Markedly distended bladder with mild bilateral hydronephrosis and hydroureter. 2. Gallbladder distention, which may be secondary to fasting. Correlate with physical exam to exclude acute cholecystitis. 3. Diffuse hepatic steatosis. 4. Moderate-sized sliding hiatal hernia. Chest X-Ray 11/02/25 12:32 IMPRESSION: 1. No acute cardiopulmonary disease. Labs Labs: Laboratory Results - last 24 hr 11/02/25 11/02/25 11/02/25 11:31 11:34 19:15 WBC 18.6 H RBC 3.89 L Hgb 11.9 L Hct 37.3 MCV 95.9 MCH 30.6 MCHC 31.9 L RDW 19.7 H Plt Count 483 H D MPV 8.9 Immature Gran % (Auto) 0.9 H Neut % (Auto) 78.5 H Lymph % (Auto) 12.0 L [place] % (Auto) 8.2 Eos % (Auto) 0.1 Baso % (Auto) 0.3 Lymph # (Auto) 2.23 [place] # (Auto) 1.5 H Eos # (Auto) 0.0 Baso # (Auto) 0.1 Abs Immat Gran (auto) 0.16 H Absolute Neuts (auto) 14.6 H Absolute Nucleated RBC 0.000 Band Neutrophils % Nucleated RBC % 0.0 Platelet Estimate % Immature Plt Fraction Anisocytosis Ovalocytes Schistocytes Absolute Retic 0.24 H Percent Retic 6.16 H Immature Retic Fraction 24.0 H Retic Hgb Content 34.6 PT 14.3 INR 1.1 Sodium 136 L Potassium 4.3 Chloride 98 Carbon Dioxide 13 L Anion Gap 25 H BUN 15 D Creatinine 1.26 H Estim Creat Clear Calc 47 Estimated GFR 42 L Glucose 101 POC Capillary Glucose Lactic Acid 4.5 H* 2.3 H Calcium 9.0 Total Bilirubin 1.0 AST 54 H ALT 35 Alkaline Phosphatase 162 H Total Protein 8.6 H Albumin 5.5 H Lipase 43 Urine Color Yellow Urine Appearance Clear Urine pH 5.5 Ur Specific [place] 1.007 Urine Protein Negative Urine Glucose (UA) Negative Urine Ketones Negative Ur Blood (Man) 3+ H Urine Nitrate Negative Urine Bilirubin Negative Urine Urobilinogen 0.2 Leukocyte Esterase Rfl Trace H Urine RBC 0-2 Urine WBC 0-5 Ur Squamous Epith Cells None seen Urine Bacteria None seen Urine Casts 0-2 Urine Opiates Screen Negative Urine Methadone Screen Negative Ur Barbiturates Screen Negative Ur Phencyclidine Scrn Negative Ur Amphetamine Screen Negative U Benzodiazepines Scrn Negative Urine Cocaine Screen Negative U Cannabinoids Screen Negative Ethyl Alcohol 236 11/02/25 11/02/25 11/03/25 20:22 23:41 04:46 WBC 6.8 3.8 L RBC 2.89 L 2.73 L Hgb 8.9 L D 8.3 L Hct 29.4 L 27.3 L MCV 101.7 H D 100.0 MCH 30.8 30.4 MCHC 30.3 L 30.4 L RDW 19.4 H 19.4 H Plt Count 160 D 194 MPV 9.7 9.3 Immature Gran % (Auto) 0.3 0.5 Neut % (Auto) 71.4 57.6 Lymph % (Auto) 16.4 L 27.5 [place] % (Auto) 11.5 H 13.3 H Eos % (Auto) 0.1 0.3 Baso % (Auto) 0.3 0.8 Lymph # (Auto) 1.12 1.03 [place] # (Auto) 0.8 H 0.5 Eos # (Auto) 0.0 0.0 Baso # (Auto) 0.0 0.0 Abs Immat Gran (auto) 0.02 0.02 Absolute Neuts (auto) 4.9 2.2 Absolute Nucleated RBC 0.000 0.000 Band Neutrophils % Not Reportable Nucleated RBC % 0.0 0.0 Platelet Estimate Adequate % Immature Plt Fraction 1.5 Anisocytosis 1+ Ovalocytes Occasional Schistocytes None seen Absolute Retic Percent Retic Immature Retic Fraction Retic Hgb Content PT INR Sodium 134 L 135 L Potassium 5.6 H 4.2 Chloride 106 106 Carbon Dioxide 16 L 20 L Anion Gap 12 9 BUN 12 11 Creatinine 0.79 0.79 Estim Creat Clear Calc 71 71 Estimated GFR > 60 > 60 Glucose 91 88 POC Capillary Glucose 89 Lactic Acid 0.7 Calcium 7.8 L 8.2 L Total Bilirubin 1.0 AST 43 H ALT 24 Alkaline Phosphatase 115 Total Protein 6.2 L Albumin 3.9 Lipase Urine Color Urine Appearance Urine pH Ur Specific [place] Urine Protein Urine Glucose (UA) Urine Ketones Ur Blood (Man) Urine Nitrate Urine Bilirubin Urine Urobilinogen Leukocyte Esterase Rfl Urine RBC Urine WBC Ur Squamous Epith Cells Urine Bacteria Urine Casts Urine Opiates Screen Urine Methadone Screen Ur Barbiturates Screen Ur Phencyclidine Scrn Ur Amphetamine Screen U Benzodiazepines Scrn Urine Cocaine Screen U Cannabinoids Screen Ethyl Alcohol Quality VTE Prophylaxis VTE prophylaxis: pharmacologic ordered
[2025-11-03] MEDS: LORATADINE 10 MG TABLET PO (09:42)
[2025-11-03] MEDS: THIAMINE HCL 100 MG TABLET PO (09:42)
[2025-11-03] MEDS: PANTOPRAZOLE 40 MG TABLET PO ×2 (09:42→22:21)
[2025-11-03] MEDS: ASPIRIN 81 MG CHEWABLE TABLET PO (09:42)
[2025-11-03] MEDS: FOLIC ACID 1 MG TABLET PO (09:42)
[2025-11-03] MEDS: METOPROLOL TARTRATE 25 MG TABLET PO ×2 (09:42→22:22)
[2025-11-03] MEDS: DULoxetine HCL 60 MG CAPSULE.DR PO (09:42)
--- NOTE | 2025-11-03 09:42 | WPDURCON ---
Assessment and Plan Assessment and plan (1) Urinary retention: Code(s): R33.9 - Retention of urine, unspecified Status: Acute Assessment and Plan: - Etiology of urinary retention not immediately forthcoming. Suspect it may be related to Hx of alcohol abuse. - Maintain Ojhnson catheter for bladder decompression until labs normalize and hydro resolves - Prior to discharge may attempt void trial; Johnson catheter to be replaced for any PVRs > 250 ml - If persistent urinary retention may benefit from outpatient UDS to better evaluate (2) Hydronephrosis: Qualifiers: Hydronephrosis type: unspecified Qualified Code(s): N13.30 - Unspecified hydronephrosis Code(s): N13.30 - Unspecified hydronephrosis Status: Acute Assessment and Plan: - BL HUN 2/2 AUR - Plan for repeat JERO in 1-2 days to assess for resolution with Johnson catheter in place - Cretatinine normalized currently Urology Consult Note HPI Date Seen: 11/03/25 Requesting Physician: Elijah Blackman MD Primary Care Provider: Christie Reyes Consult Narrative Narrative: Pt is a 65 year old F with alcoholism, acute lymphocytic leukemia/B-cell, bipolar disorder, TIAs, seizure disorder, [place] who presented to the ED with lower abdominal pain found to be in urinary retention with significant bladder distension and BL hydroureteronephrosis on CT s/p Johnson catheter placement for who urology is consulted for management of urinary retention. Pt states that prior to her ED presentation she never had any issues voiding previously. Denies stranguria, weak stream, incomplete emptying, frequency, urgency. Denies Hx of constipation but does note new onset diarrhea in the last several weeks with associated bowel incontinence. Pt presented intoxicated. States she has not drank in several months but it appears that she has a long history of alcohol abuse. Review of Systems Constitutional: Constitutional: Denies chills ENT: Reports Normal hearing present, Denies nasal congestion and Denies nasal discharge Cardiovascular: Cardiovascular: Denies chest pain Respiratory: Respiratory: Denies dyspnea and Denies wheezing Gastrointestinal: Gastrointestinal: Reports abdominal pain, Denies constipation and Reports diarrhea Genitourinary: Genitourinary: Denies hematuria, Reports pelvic pain and Denies flank pain Musculoskeletal: Musculoskeletal: Reports back pain Neurologic: Denies Abnormal speech present and Denies confusion [facility] Past Medical History Medical History (Updated 11/03/25 @ 10:44 by NARDA Mackey) B-cell acute lymphoblastic leukemia (2023) PTSD (post-traumatic stress disorder) Hypothyroidism Alcohol addiction Obstructive sleep apnea Bipolar disorder Seizure disorder Migraine headache CVA (cerebral vascular accident) Surgical History Surgical History (Updated 09/21/25 @ 02:40 by Carissa Vera DO) History of blepharoplasty History of foot surgery [place] History of left oophorectomy Due to endometriosis History of section Family History Family History (Updated 09/21/25 @ 02:26 by Carissa Vera DO) Other Unknown family medical history Social History Social History (Updated 09/21/25 @ 02:29 by Carissa Vera DO) Social History: The patient lived in [place] until she came to [place] for treatment of her B-cell acute lymphoblastic leukemia in 2023. 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 She has 1 daughter and 1 grandson. She reports she is a lifelong nonsmoker. She denies history of heavy alcohol use despite being actively in toxic a did at the time of EMS evaluation on the and on arrival to the hospital on the 20 September 2025. She denies history of illicit substance use. The patient states that she does have some college Education but it does not sound like that she has a bachelor's degree. Code status: Full code Surrogate decision maker: Daughter Smoking status: Never smoker Alcohol intake: current Substance use: never Last use: pt states she hasn't drank for 1 month, binge drank past 2 days Lack of Transportation: No Lack of Food: Never True Current Housing: I Have Housing Concerned About Future Housing: No Difficulty Paying Gas/Electric Bills: No Difficulty Paying for Meds: No Currently Unemployed: No Education: Bachelor's Degree Difficulty w/ Childcare or Family Care: No Spiritual care concerns: No Meds Home Medications and Allergies Home Medications ?Medication ?Instructions ?Recorded ?Confirmed ?Type aspirin 81 mg capsule 81 mg PO DAILY 09/20/25 11/02/25 History atorvastatin 40 mg tablet 40 mg PO QPM 09/20/25 11/02/25 History clonazepam 0.5 mg tablet 0.75 mg PO Q12H 09/20/25 11/02/25 History clonazepam 1 mg tablet 1 mg PO .@1200 09/20/25 11/02/25 History dapsone 100 mg tablet 100 mg PO DAILY 09/20/25 11/02/25 History dasatinib 70 mg tablet (Phyrago) 70 mg PO DAILY 09/20/25 11/02/25 History duloxetine 60 mg capsule,delayed 60 mg PO DAILY 09/20/25 11/02/25 History release fluticasone propionate 50 2 spray intranasal Q12H 09/20/25 11/02/25 History mcg/actuation nasal spray,suspension hydroxyzine HCl 25 mg tablet 25 mg PO TID PRN itching 09/20/25 11/02/25 History lamotrigine 150 mg tablet 150 mg PO Q12H 09/20/25 11/02/25 History levetiracetam 500 mg tablet 500 mg PO Q12H 09/20/25 11/02/25 History levothyroxine 75 mcg tablet 75 mcg PO DAILY 09/20/25 11/02/25 History loratadine 10 mg tablet (Allergy 10 mg PO DAILY 09/20/25 11/02/25 History Relief (loratadine)) olopatadine 0.1 % eye drops 1 drp EACH EYE BID PRN dry eyes 09/20/25 11/02/25 History ondansetron HCl 4 mg tablet 4 mg PO Q6H PRN nausea and vomiting 09/20/25 11/02/25 History pantoprazole 40 mg tablet,delayed 40 mg PO Q12H 09/20/25 11/02/25 History release ropinirole 0.5 mg tablet 0.5 mg PO HS 09/20/25 11/02/25 History sennosides 8.6 mg tablet (Laxative 8.6 mg PO BID PRN constipation 09/20/25 11/02/25 History (sennosides)) sucralfate 1 gram tablet 1 g PO QID 09/20/25 11/02/25 History trazodone 100 mg tablet 200 mg PO HS 09/20/25 11/02/25 History ursodiol 300 mg capsule 300 mg PO Q12H 09/20/25 11/02/25 History valacyclovir 500 mg tablet 500 mg PO DAILY 09/20/25 11/02/25 History folic acid 1 mg tablet 1 mg PO DAILY #30 tabs 09/25/25 11/02/25 Rx metoprolol tartrate 25 mg tablet 25 mg PO Q12HR #60 tabs 09/25/25 11/02/25 Rx thiamine HCl (vitamin B1) 100 mg 100 mg PO DAILY #30 tabs 09/25/25 11/02/25 Rx tablet (Vitamin B-1) albuterol sulfate 90 mcg/actuation 2 puff inhalation Q4H PRN 11/02/25 11/02/25 History aerosol inhaler shortness of breath or wheezing Allergies Allergy/AdvReac Type Severity Reaction Status Date / Time trimethoprim Allergy Mild Unknown Verified 09/20/25 20:25 lithium Allergy Unknown Verified 09/20/25 20:25 Sulfa (Sulfonamide Allergy Unknown Verified 09/20/25 20:25 Antibiotics) Vital Signs Vital Signs - 24 hr 11/02/25 10:26 11/02/25 10:34 11/02/25 10:47 Temperature 37.2 C Pulse Rate 104 H 110 H 110 H Respiratory Rate 15 17 16 Blood Pressure 159/76 H 159/76 H 138/64 Pulse Oximetry 94 95 97 Oxygen Delivery Room Air 11/02/25 11:01 11/02/25 12:27 11/02/25 12:45 Temperature Pulse Rate 110 H 131 H 119 H Respiratory Rate 19 20 17 Blood Pressure 157/67 H Pulse Oximetry 97 99 Oxygen Delivery 11/02/25 13:06 11/02/25 13:11 11/02/25 13:16 Temperature Pulse Rate 117 H 116 H 117 H Respiratory Rate 20 20 20 Blood Pressure 147/75 H 147/75 H 152/68 H Pulse Oximetry 100 100 98 Oxygen Delivery 11/02/25 13:31 11/02/25 13:46 11/02/25 14:01 Temperature 37.2 C Pulse Rate 114 H 117 H 119 H Respiratory Rate 21 H 23 H 15 Blood Pressure 142/73 H 143/70 H 140/76 Pulse Oximetry 98 98 98 Oxygen Delivery 11/02/25 14:08 11/02/25 14:17 11/02/25 14:31 Temperature Pulse Rate 127 H 122 H 117 H Respiratory Rate 14 17 19 Blood Pressure 140/76 145/82 H 140/75 Pulse Oximetry 97 99 Oxygen Delivery 11/02/25 14:45 11/02/25 14:46 11/02/25 15:00 Temperature Pulse Rate 120 H 118 H 115 H Respiratory Rate 14 12 20 Blood Pressure 147/62 H Pulse Oximetry 99 97 96 Oxygen Delivery 11/02/25 15:31 11/02/25 16:16 11/02/25 16:45 Temperature Pulse Rate 113 H 112 H 114 H Respiratory Rate 22 H 19 16 Blood Pressure 149/68 H 154/70 H Pulse Oximetry 94 92 93 Oxygen Delivery 11/02/25 17:07 11/02/25 20:00 11/02/25 20:00 Temperature Pulse Rate 116 H 93 Respiratory Rate 17 Blood Pressure 148/69 H Pulse Oximetry 95 Oxygen Delivery Room Air 11/02/25 20:15 11/02/25 22:58 11/03/25 00:00 Temperature 37.3 C Pulse Rate 101 H 99 100 Respiratory Rate 20 Blood Pressure 154/61 H Pulse Oximetry 95 Oxygen Delivery 11/03/25 03:53 11/03/25 04:00 11/03/25 09:38 Temperature 36.9 C 36.7 C Pulse Rate 81 87 93 Respiratory Rate 20 18 Blood Pressure 133/60 158/64 H Pulse Oximetry 97 98 Oxygen Delivery Results Labs 11/03/25 04:46 11/03/25 04:46 Labs: Short CBC 11/02/25 11/02/25 11/03/25 Range/Units 11:34 23:41 04:46 WBC 18.6 H 6.8 3.8 L (4.5-10.0) K/mm3 Hgb 11.9 L 8.9 L D 8.3 L (12.0-15.0) g/dL Hct 37.3 29.4 L 27.3 L (37.0-47.0) % Plt Count 483 H D 160 D 194 (150-375) k/mm3 BMP 11/02/25 11/02/25 11/03/25 11:34 23:41 04:46 Sodium 136 L 134 L 135 L Potassium 4.3 5.6 H 4.2 Chloride 98 106 106 Carbon Dioxide 13 L 16 L 20 L BUN 15 D 12 11 Creatinine 1.26 H 0.79 0.79 Glucose 101 91 88 Calcium 9.0 7.8 L 8.2 L Liver Function 11/02/25 11/03/25 Range/Units 11:34 04:46 Total Bilirubin 1.0 1.0 (0.2-1.3) mg/dL AST 54 H 43 H (14-36) U/L ALT 35 24 (6-35) U/L Alkaline Phosphatase 162 H 115 (38-126) U/L Albumin 5.5 H 3.9 (3.5-5.1) g/dL Urine 11/02/25 Range/Units 11:31 Urine Color Yellow (Yellow) Urine Appearance Clear (Clear) Urine pH 5.5 (5.0-9.0) Ur Specific [place] 1.007 (1.001-1.035) Urine Protein Negative (Negative) mg/dL Urine Glucose (UA) Negative (Negative) mg/dL
[2025-11-03] MEDS: DAPSONE 25 MG TABLET 100 MG PO (09:43)
[2025-11-03] MEDS: lamoTRIgine 50 MG TABLET PO ×2 (09:43→22:22)
[2025-11-03] MEDS: SUCRALFATE 1 GM TABLET PO ×4 (09:44→22:27)
[2025-11-03] MEDS: FLUTICASONE PROPIONATE 0.05% NA SPR 16 GM BTL (*BKC) 2 SPRAY NASAL (09:47)
[2025-11-03] MEDS: clonazePAM (*CRX) 0.5 MG TABLET 1 MG PO (11:15)
[2025-11-03] MEDS: VANCOMYCIN 1,500 MG/NS 500 ML 1,500 MG/500 ML BAG 250 MG IVPB (11:20)
[2025-11-03] MEDS: ACETAMINOPHEN 325 MG TABLET 650 MG PO (15:59)
[2025-11-03] MEDS: SODIUM CHLORIDE 0.9% IV 1,000 ML 125 ML IV CONT (17:46)
[2025-11-03] MEDS: ATORVASTATIN 40 MG TABLET PO (17:46)
[2025-11-03] MEDS: clonazePAM (*CRX) 0.25 MG TABLET 0.75 MG PO (22:21)
[2025-11-03] MEDS: ENOXAPARIN 40 MG/0.4 ML SYRINGE SUB-Q (22:23)
[2025-11-04] VITALS (11 sets, daily range): BP systolic 99–123; BP diastolic 38–50; PULSE 62–81; RESP 16–18; TEMP 36.2–37.1; O2SAT 92
[2025-11-04] MEDS: clonazePAM (*CRX) 0.25 MG TABLET 0.75 MG PO ×2 (05:29→17:48)
[2025-11-04] MEDS: LEVOTHYROXINE SODIUM 75 MCG TABLET PO (05:29)
[2025-11-04] MEDS: ONDANSETRON INJ 4 MG/2 ML VIAL IV PUSH (05:32)
[2025-11-04 05:33] LABS: Estimated CRCL calculation 88 ml/min; Estimated Glomerular Filt Rate > 60
[2025-11-04] MEDS: VANCOMYCIN 1,750 MG/NS 500 ML 1,750 MG/500 ML BAG 250 MG IVPB ×2 (06:27→17:42)
[2025-11-04 07:35] LABS: Hematocrit 26.9 % (37.0-47.0); Hemoglobin 8.2 g/dL (12.0-15.0); Immature Granulocyte Percent A 0.5 % (0-0.5); Lymphocytes Absolute Auto 0.58 K/mm3 (0.9-3.2); Mean Corpuscular HGB Conc 30.5 g/dl (32-36); Mean Corpuscular Hemoglobin 30.8 pg (26-34); Mean Corpuscular Volume 101.1 fl (80-100); Nucleated Red Blood Cells Absolute Auto 0.000 K/mm3 (0.0-0.012); Nucleated Red Blood Cells Perc 0.0 % (0.0-0.2); Platelet Count Result 187 k/mm3 (150-375); Red Blood Count 2.66 M/mm3 (4.2-5.4); White Blood Count 2.0 K/mm3 (4.5-10.0)
[2025-11-04 07:47] LABS: Alanine Aminotransferase 23 U/L (6-35); Albumin Level 3.0 g/dL (3.5-5.1); Alkaline Phosphatase 94 U/L (38-126); Anion Gap 0 mmol/L (4-12); Aspartate Amino Transferase 41 U/L (14-36); Bilirubin,Total 0.5 mg/dL (0.2-1.3); Blood Urea Nitrogen 8 mg/dL (7-17); Calcium 8.5 mg/dL (8.4-10.2); Carbon Dioxide 26 mmol/L (22-30); Chloride 109 mmol/L (98-107); Estimated CRCL calculation 89 ml/min; Estimated Glomerular Filt Rate > 60; Glucose 92 mg/dL (65-110); Potassium 3.6 mmol/L (3.4-5.0); Sodium 135 mmol/L (137-145); Total Protein 5.0 g/dL (6.3-8.2)
--- NOTE | 2025-11-04 08:09 | P.PNIM_ITS ---
Assessment and Plan Assessment and Plan (1) Acute urinary retention: Code(s): R33.8 - Other retention of urine Status: Acute Assessment and Plan: Patient presents with lower abdominal pain that started about 10 hours prior to arrival. * CT abdomen pelvis reveals markedly distended bladder with bilateral hydronephrosis and hydroureter. * UA without signs of infection * Unclear etiology of acute retention * Johnson in place * No obstructive pathology noted on CT. * Consult Urology * Maintain bladder decompression until labs normalize and hydronephrosis resolves * Attempt a void trial prior to discharge, replace Johnson catheter if PVRs>250ml * Likely benefit from outpatient UDS if urinary retention persists * Renal US today to assess hydronephrosis * Void trial later today (2) RO (acute kidney injury): Code(s): N17.9 - Acute kidney failure, unspecified Status: Acute Assessment and Plan: * Likely related to #1 - UA without sign of infection. * Cr 1.26 on admission (baseline Cr 0.5-0.6) * s/p 3L of IVF * NS @ 150 started on 11/02 * Johnson in place * monitor I&Os * Renal dose med, avoid nephrotoxins * trend renal function * Resolved (3) Lactic acidosis: Code(s): E87.20 - Acidosis, unspecified Status: Acute Assessment and Plan: * lactic acid 4.5. * Sepsis versus dehydration; most likely dehydration. * No infectious source found on CT abdomen pelvis. * UA without signs of infection. Afebrile * 30 mL/kg given in ED with improvement to 2.3 * NS @ 150 * trend lactic * Resolved (4) Alcoholic intoxication: Qualifiers: Complication of substance-induced condition: with unspecified complication Qualified Code(s): F10.929 - Alcohol use, unspecified with intoxication, unspecified Code(s): F10.929 - Alcohol use, unspecified with intoxication, unspecified Status: Acute Assessment and Plan: * patient intoxicated admit with Ethyl alcohol level 236. Patient refuses to answer questions on alcohol use aside from stating she is currently intoxicated. * [facility] protocol in place * Receiving scheduled clonazepam * Diazepam, antiemetics p.r.n. 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 (7) Bipolar disorder: Qualifiers: Active/Remission status: currently active Current bipolar episode type: depressed Current episode severity: unspecified Qualified Code(s): F31.30 - Bipolar disorder, current episode depressed, mild or moderate severity, unspecified Code(s): F31.9 - Bipolar disorder, unspecified Status: Chronic Assessment and Plan: * Continue clonazepam, duloxetine and lamotrigine Subjective Date/time seen: 11/04/25 08:09 Interval history: 65-year-old female past medical history of alcoholism, acute lymphocytic leukemia/B-cell, bipolar disorder, TIAs, seizure disorder, PR presents to the ED on 11/02/2025 from [facility] with complaints of lower abdominal pain. 11/04/2025 Patient sitting comfortably in bed at time of examination. Denies any chest pain, shortness of breath, nausea/vomiting. Urology was in room at time of exam, plan to obtain renal US today to assess hydronephrosis with likely void trial today. Review of Systems Review of Systems: ROS unobtainable: Yes unobtainable due to mental status Exam Narrative: GENERAL: Disheveled. Mild distress HEAD: Normocephalic, atraumatic. EYES: Conjunctivae clear. NOSE: Normal no drainage. THROAT: Pharynx clear, no exudate. NECK: Trachea midline. No adenopathy, no masses. RESPIRATORY: Airway patent, respirations nonlabored. CTA. CARDIOVASCULAR: regular rate and rhythm BREASTS: Defer GASTROINTESTINAL: tenderness in the suprapubic area with palpation. Bowel sounds normal in all quadrants. GENITOURINARY: Defer MUSCULOSKELETAL: Moves all extremities. No gross deformities. SKIN: Warm, dry, normal color. NEURO: A&O X4. Speech clear PSYCHIATRIC: Poor eye contact. Objective Data Vital Signs Vital Signs: Vital Signs - 24 hr 11/03/25 09:38 11/03/25 09:42 11/03/25 09:42 Temperature 98.1 F Pulse Rate 93 96 Pulse Rate [Apical] Pulse Rate [Bilateral Pedal (Dorsalis Pedis) Palpation] Respiratory Rate 18 Blood Pressure 158/64 H 146/58 H Pulse Oximetry 98 Oxygen Delivery 11/03/25 09:42 11/03/25 10:30 11/03/25 12:00 Temperature Pulse Rate 96 80 Pulse Rate [Apical] Pulse Rate [Bilateral Pedal (Dorsalis Pedis) Palpation] 88 Respiratory Rate 18 Blood Pressure 139/74 Pulse Oximetry 98 Oxygen Delivery Room Air 11/03/25 12:00 11/03/25 14:00 11/03/25 16:00 Temperature 98.5 F Pulse Rate 78 84 81 Pulse Rate [Apical] Pulse Rate [Bilateral Pedal (Dorsalis Pedis) Palpation] Respiratory Rate 20 Blood Pressure 138/60 Pulse Oximetry 93 Oxygen Delivery 11/03/25 16:00 11/03/25 20:00 11/03/25 20:00 Temperature Pulse Rate 70 81 Pulse Rate [Apical] 81 Pulse Rate [Bilateral Pedal (Dorsalis Pedis) Palpation] Respiratory Rate 18 Blood Pressure Pulse Oximetry 91 Oxygen Delivery Room Air 11/03/25 20:56 11/03/25 22:22 11/03/25 22:50 Temperature 96.6 F L Pulse Rate 94 70 Pulse Rate [Apical] Pulse Rate [Bilateral Pedal (Dorsalis Pedis) Palpation] Respiratory Rate 18 Blood Pressure 109/47 L Pulse Oximetry 91 91 Oxygen Delivery Autopap 11/04/25 00:00 11/04/25 03:46 11/04/25 04:00 Temperature 97.6 F Pulse Rate 63 67 64 Pulse Rate [Apical] Pulse Rate [Bilateral Pedal (Dorsalis Pedis) Palpation] Respiratory Rate 18 Blood Pressure 106/43 L Pulse Oximetry 92 Oxygen Delivery 11/04/25 04:00 Temperature Pulse Rate Pulse Rate [Apical] 81 Pulse Rate [Bilateral Pedal (Dorsalis Pedis) Palpation] Respiratory Rate Blood Pressure Pulse Oximetry Oxygen Delivery Intake/Output Intake/Output: Intake & Output 12/07/25 12/08/25 12/09/25 12/10/25 23:59 23:59 23:59 23:59 Intake Total 2950 2090 1190 Output Total 2150 8164 900 Balance 800 -85 290 Meds/Results Medications: Active Medications Generic Name Dose Route Start Last Admin Trade Name Freq PRN Reason Stop Dose Admin Acetaminophen 650 mg 11/03/25 14:20 11/03/25 15:59 Acetaminophen 325 Mg Tablet PO 650 mg Q6H PRN Administration Mild Pain (1-3) or Fever Aspirin 81 mg 11/03/25 08:00 11/03/25 09:42 Aspirin 81 Mg Chewable Tablet PO 81 mg DAILY@0800 DYLLAN Administration Atorvastatin Calcium 40 mg 11/03/25 18:00 11/03/25 17:46 Atorvastatin 40 Mg Tablet PO 40 mg QPM DYLLAN Administration Clonazepam 1 mg 11/03/25 12:00 11/03/25 11:15 Clonazepam (*Crx) 0.5 Mg Tablet PO 1 mg 1200 DYLLAN Administration Clonazepam 0.75 mg 11/03/25 22:07 11/04/25 05:29 Clonazepam (*Crx) 0.25 Mg Tablet PO 0.75 mg Q12HR DYLLAN Administration Dapsone 100 mg 11/03/25 09:00 11/03/25 09:43 Dapsone 25 Mg Tablet PO 100 mg DAILY DYLLAN Administration Diazepam 5 mg 11/02/25 16:15 Diazepam Inj (*Crx) 10 Mg/2 Ml Syringe IV PUSH Q2H PRN Alcohol Withdrawal Duloxetine HCl 60 mg 11/03/25 09:00 11/03/25 09:42 Duloxetine Hcl 60 Mg Capsule.Dr PO 60 mg DAILY DYLLAN Administration Enoxaparin Sodium 40 mg 11/02/25 22:05 11/03/25 22:23 Enoxaparin 40 Mg/0.4 Ml Syringe SUB-Q 40 mg HS DYLLAN Administration Fluticasone Propionate 2 spray 11/03/25 09:00 11/03/25 09:47 Fluticasone Propionate 0.05% Na Spr 16 Gm Btl (*Bkc) NASAL 2 spray DAILY DYLLAN Administration Folic Acid 1 mg 11/03/25 09:00 11/03/25 09:42 Folic Acid 1 Mg Tablet PO 1 mg DAILY DYLLAN Administration Hydroxyzine HCl 25 mg 11/02/25 22:15 Hydroxyzine Hcl 25 Mg Tablet PO TID PRN Itching Sodium Chloride 1,000 mls @ 125 mls/hr 11/02/25 21:55 11/04/25 01:15 Normal Saline Iv IV CONT Infused .Q8H DYLLAN Infusion Vancomycin HCl 1,750 mg in 500 mls @ 250 mls/hr 11/04/25 06:00 11/04/25 06:27 Vancomycin 1,750 Mg/Ns 500 Ml IVPB 250 mls/hr Q12H DYLLAN Administration Lamotrigine 100 mg 11/02/25 22:50 11/03/25 22:21 Lamotrigine 100 Mg Tablet PO 100 mg Q12HR DYLLAN Administration Lamotrigine 50 mg 11/02/25 22:50 11/03/25 22:22 Lamotrigine 50 Mg Tablet PO 50 mg Q12HR DYLLAN Administration Levetiracetam 500 mg 11/02/25 22:15 11/03/25 22:22 Levetiracetam 500 Mg Tablet PO 500 mg Q12HR DYLLAN Administration Levothyroxine Sodium 75 mcg 11/03/25 06:30 11/04/25 05:29 Levothyroxine Sodium 75 Mcg Tablet PO 75 mcg DAILY@0630 DYLLAN Administration Loratadine 10 mg 11/03/25 09:00 11/03/25 09:42 Loratadine 10 Mg Tablet PO 10 mg DAILY DYLLAN Administration Metoprolol Tartrate 25 mg 11/02/25 22:25 11/03/25 22:22 Metoprolol Tartrate 25 Mg Tablet PO 25 mg Q12HR DYLLAN Administration Miscellaneous Information 0 each 11/02/25 23:10 Dasatinib [Phyrago] 70 Mg Tablet- Nonformulary. Please Obtain A Home Supply If Possible. XX 12/02/25 23:09 CLARIFY DYLLAN Non-Formulary Medication 70 mg 11/03/25 09:00 Dasatinib [Phyrago] PO 12/03/25 08:59 DAILY DYLLAN Ondansetron HCl 4 mg 11/02/25 14:38 11/04/25 05:32 Ondansetron Inj 4 Mg/2 Ml Vial IV PUSH 4 mg Q4H PRN Administration Nausea Pantoprazole Sodium 40 mg 11/02/25 22:15 11/03/25 22:21 Pantoprazole 40 Mg Tablet PO 40 mg Q12HR DYLLAN Administration Ropinirole HCl 0.5 mg 11/02/25 22:25 11/03/25 22:22 Ropinirole Hcl 0.5 Mg Tablet PO 0.5 mg HS DYLLAN Administration Senna 8.6 mg 11/02/25 22:15 Sennosides 8.6 Mg Tablet PO BID PRN Constipation Sucralfate 1 gm 11/03/25 07:30 11/03/25 22:27 Sucralfate 1 Gm Tablet PO 1 gm 0730,1100,1600,2100 DYLLAN Administration Thiamine HCl 100 mg 11/03/25 09:00 11/03/25 09:42 Thiamine Hcl 100 Mg Tablet PO 100 mg DAILY DYLLAN Administration Trazodone HCl 200 mg 11/02/25 22:35 11/03/25 22:21 Trazodone Hcl 50 Mg Tablet PO 200 mg HS DYLLAN Administration Ursodiol 300 mg 11/03/25 09:00 11/03/25 22:23 Ursodiol 300 Mg Capsule PO 300 mg Q12HR DYLLAN Administration Valacyclovir HCl 500 mg 11/03/25 09:00 11/03/25 09:42 Valacyclovir Hcl 500 Mg Tablet PO 500 mg DAILY DYLLAN Administration Radiology Results: ITS Impressions Abdomen/Pelvis CT 11/02/25 12:31 IMPRESSION: 1. Markedly distended bladder with mild bilateral hydronephrosis and hydrourete r. 2. Gallbladder distention, which may be secondary to fasting. Correlate with physical exam to exclude acute cholecystitis. 3. Diffuse hepatic steatosis. 4. Moderate-sized sliding hiatal hernia. Chest X-Ray 11/02/25 12:32 IMPRESSION: 1. No acute cardiopulmonary disease. Labs Labs: Laboratory Results - last 24 hr 11/03/25 11/03/25 11/03/25 08:00 11:51 16:49 WBC RBC Hgb Hct MCV MCH MCHC RDW Plt Count MPV Immature Gran % (Auto) Neut % (Auto) Lymph % (Auto) [place] % (Auto) Eos % (Auto) Baso % (Auto) Lymph # (Auto) [place] # (Auto) Eos # (Auto) Baso # (Auto) Abs Immat Gran (auto) Absolute Neuts (auto) Absolute Nucleated RBC Nucleated RBC % Sodium Potassium Chloride Carbon Dioxide Anion Gap BUN Creatinine Estim Creat Clear Calc Estimated GFR Glucose POC Capillary Glucose 89 105 120 H Calcium Total Bilirubin AST ALT Alkaline Phosphatase Total Protein Albumin Vancomycin Trough 11/03/25 11/04/25 11/04/25 20:53 05:14 05:14 WBC 2.0 L RBC 2.66 L Hgb 8.2 L Hct 26.9 L MCV 101.1 H MCH 30.8 MCHC 30.5 L RDW 19.3 H Plt Count 187 MPV 9.9 Immature Gran % (Auto) 0.5 Neut % (Auto) 53.8 Lymph % (Auto) 29.1 [place] % (Auto) 10.1 H Eos % (Auto) 6.0 H Baso % (Auto) 0.5 Lymph # (Auto) 0.58 L [place] # (Auto) 0.2 Eos # (Auto) 0.1 Baso # (Auto) 0.0 Abs Immat Gran (auto) 0.01 Absolute Neuts (auto) 1.1 L Absolute Nucleated RBC 0.000 Nucleated RBC % 0.0 Sodium 135 L Potassium 3.6 Chloride 109 H Carbon Dioxide 26 Anion Gap 0 L BUN 8 Creatinine 0.63 L 0.62 L Estim Creat Clear Calc 88 Estimated GFR Glucose POC Capillary Glucose 136 H Calcium Total Bilirubin AST ALT Alkaline Phosphatase Total Protein Albumin Vancomycin Trough 11/04/25 11/04/25 05:14 05:14 WBC RBC Hgb Hct MCV MCH MCHC RDW Plt Count MPV Immature Gran % (Auto) Neut % (Auto) Lymph % (Auto) [place] % (Auto) Eos % (Auto) Baso % (Auto) Lymph # (Auto) [place] # (Auto) Eos # (Auto) Baso # (Auto) Abs Immat Gran (auto) Absolute Neuts (auto) Absolute Nucleated RBC Nucleated RBC % Sodium Potassium Chloride Carbon Dioxide Anion Gap BUN Creatinine Estim Creat Clear Calc 89 Estimated GFR > 60 > 60 Glucose 92 POC Capillary Glucose Calcium 8.5 Total Bilirubin 0.5 AST 41 H ALT 23 Alkaline Phosphatase 94 Total Protein 5.0 L Albumin 3.0 L Vancomycin Trough 9.1 L Quality VTE Prophylaxis VTE prophylaxis: pharmacologic ordered
[2025-11-04] MEDS: PROCHLORPERAZINE MALEATE 5 MG TABLET PO (10:24)
[2025-11-04] MEDS: LORATADINE 10 MG TABLET PO (10:41)
[2025-11-04] MEDS: FOLIC ACID 1 MG TABLET PO (10:42)
[2025-11-04] MEDS: PANTOPRAZOLE 40 MG TABLET PO ×2 (10:42→20:32)
[2025-11-04] MEDS: DAPSONE 25 MG TABLET 100 MG PO (10:42)
[2025-11-04] MEDS: THIAMINE HCL 100 MG TABLET PO (10:42)
[2025-11-04] MEDS: lamoTRIgine 50 MG TABLET PO ×2 (10:42→20:32)
[2025-11-04] MEDS: DULoxetine HCL 60 MG CAPSULE.DR PO (10:42)
[2025-11-04] MEDS: METOPROLOL TARTRATE 25 MG TABLET PO ×2 (10:43→20:32)
[2025-11-04] MEDS: ASPIRIN 81 MG CHEWABLE TABLET PO (10:43)
[2025-11-04] MEDS: clonazePAM (*CRX) 0.5 MG TABLET 1 MG PO (11:02)
[2025-11-04] MEDS: SUCRALFATE 1 GM TABLET PO ×3 (11:02→20:36)
[2025-11-04] MEDS: SODIUM CHLORIDE 0.9% IV 1,000 ML 125 ML IV CONT (11:03)
--- NOTE | 2025-11-04 13:05 | WPDUROPN2 ---
Progress Note: A&P Assessment and Plan (1) Urinary retention: Code(s): R33.9 - Retention of urine, unspecified Status: Acute Assessment and Plan: - Etiology of urinary retention not immediately forthcoming. Suspect it may be related to Hx of alcohol abuse. - Maintain Howell catheter for bladder decompression until labs normalize and hydro resolves. cr 0.65 today. - Prior to discharge may attempt void trial; Howell catheter to be replaced for any PVRs > 250 ml - If persistent urinary retention may benefit from outpatient UDS to better evaluate (2) Hydronephrosis: Qualifiers: Hydronephrosis type: unspecified Qualified Code(s): N13.30 - Unspecified hydronephrosis Code(s): N13.30 - Unspecified hydronephrosis Status: Acute Assessment and Plan: - BL HUN 12/28 AUR - Plan for repeat JERO today to assess for resolution with Howell catheter in place. If resolved then may do voidng trial. - Creatinine normalized currently Subjective Subjective Date/Time Seen: 11/04/25 13:05 Interval history: patient is sitting in the bed. she is nauseated. She reports the howell is painful and she doesnt like it. Review of Systems Constitutional: Constitutional: Denies chills ENT: Reports Normal hearing present, Denies nasal congestion and Denies nasal discharge Cardiovascular: Cardiovascular: Denies chest pain and Denies dyspnea Respiratory: Respiratory: Denies dyspnea and Denies wheezing Gastrointestinal: Gastrointestinal: Reports abdominal pain, Denies constipation and Reports diarrhea Genitourinary: Genitourinary: Denies hematuria, Reports pelvic pain and Denies flank pain Musculoskeletal: Musculoskeletal: Reports back pain Neurologic: Reports Normal hearing present, Denies Abnormal speech present and Denies confusion Psychiatric: Psychiatric: Denies confusion Allergic/Immunologic: Allergic/Immunologic: Denies wheezing Exam Const: General: No confusion Neuro: Cranial nerves: Yes Normal hearing present Speech: No Abnormal speech present Objective Data Vital Signs Vital Signs: Vital Signs - 24 hr 11/03/25 14:00 11/03/25 16:00 11/03/25 16:00 Temperature 98.5 F Pulse Rate 84 81 Pulse Rate [Apical] 81 Respiratory Rate 20 Blood Pressure 138/60 Pulse Oximetry 93 Oxygen Delivery 11/03/25 20:00 11/03/25 20:00 11/03/25 20:56 Temperature 96.6 F L Pulse Rate 70 81 94 Pulse Rate [Apical] Respiratory Rate 18 18 Blood Pressure 109/47 L Pulse Oximetry 91 91 Oxygen Delivery Room Air 11/03/25 22:22 11/03/25 22:50 11/04/25 00:00 Temperature Pulse Rate 70 63 Pulse Rate [Apical] Respiratory Rate Blood Pressure Pulse Oximetry 91 Oxygen Delivery Autopap 11/04/25 03:46 11/04/25 04:00 11/04/25 04:00 Temperature 97.6 F Pulse Rate 67 64 Pulse Rate [Apical] 81 Respiratory Rate 18 Blood Pressure 106/43 L Pulse Oximetry 92 Oxygen Delivery 11/04/25 08:00 11/04/25 08:00 11/04/25 08:00 Temperature Pulse Rate 78 75 Pulse Rate [Apical] 62 Respiratory Rate 18 Blood Pressure Pulse Oximetry 92 Oxygen Delivery Autopap 11/04/25 10:43 11/04/25 12:00 11/04/25 12:00 Temperature Pulse Rate 78 63 Pulse Rate [Apical] 62 Respiratory Rate Blood Pressure Pulse Oximetry Oxygen Delivery Intake/Output Intake/Output: Intake & Output 11/01/25 11/02/25 11/03/25 11/04/25 23:59 23:59 23:59 23:59 Intake Total 2950 2090 1670 Output Total 2150 2175 900 Balance 800 -85 770 Meds/Results Medications: Active Medications Generic Name Dose Route Start Last Admin Trade Name Freq PRN Reason Stop Dose Admin Acetaminophen 650 mg 11/03/25 14:20 11/03/25 15:59 Acetaminophen 325 Mg Tablet PO 650 mg Q6H PRN Administration Mild Pain (1-3) or Fever Aspirin 81 mg 11/03/25 08:00 11/04/25 10:43 Aspirin 81 Mg Chewable Tablet PO 81 mg DAILY@0800 DYLLAN Administration Atorvastatin Calcium 40 mg 11/03/25 18:00 11/03/25 17:46 Atorvastatin 40 Mg Tablet PO 40 mg QPM DYLLAN Administration Clonazepam 1 mg 11/03/25 12:00 11/04/25 11:02 Clonazepam (*Crx) 0.5 Mg Tablet PO 1 mg 1200 DYLLAN Administration Clonazepam 0.75 mg 11/03/25 22:07 11/04/25 05:29 Clonazepam (*Crx) 0.25 Mg Tablet PO 0.75 mg Q12HR DYLLAN Administration Dapsone 100 mg 11/03/25 09:00 11/04/25 10:42 Dapsone 25 Mg Tablet PO 100 mg DAILY DYLLAN Administration Diazepam 5 mg 11/02/25 16:15 Diazepam Inj (*Crx) 10 Mg/2 Ml Syringe IV PUSH Q2H PRN Alcohol Withdrawal Duloxetine HCl 60 mg 11/03/25 09:00 11/04/25 10:42 Duloxetine Hcl 60 Mg Capsule.Dr PO 60 mg DAILY DYLLAN Administration Enoxaparin Sodium 40 mg 11/02/25 22:05 11/03/25 22:23 Enoxaparin 40 Mg/0.4 Ml Syringe SUB-Q 40 mg HS DYLLAN Administration Fluticasone Propionate 2 spray 11/03/25 09:00 11/04/25 11:00 Fluticasone Propionate 0.05% Na Spr 16 Gm Btl (*Bkc) NASAL Not Given DAILY DYLLAN Folic Acid 1 mg 11/03/25 09:00 11/04/25 10:42 Folic Acid 1 Mg Tablet PO 1 mg DAILY DYLLAN Administration Hydroxyzine HCl 25 mg 11/02/25 22:15 Hydroxyzine Hcl 25 Mg Tablet PO TID PRN Itching Sodium Chloride 1,000 mls @ 125 mls/hr 11/02/25 21:55 11/04/25 11:03 Normal Saline Iv IV CONT 125 mls/hr .Q8H DYLLAN Administration Vancomycin HCl 1,750 mg in 500 mls @ 250 mls/hr 11/04/25 06:00 11/04/25 06:27 Vancomycin 1,750 Mg/Ns 500 Ml IVPB 250 mls/hr Q12H DYLLAN Administration Lamotrigine 100 mg 11/02/25 22:50 11/04/25 10:42 Lamotrigine 100 Mg Tablet PO 100 mg Q12HR DYLLAN Administration Lamotrigine 50 mg 11/02/25 22:50 11/04/25 10:42 Lamotrigine 50 Mg Tablet PO 50 mg Q12HR DYLLAN Administration Levetiracetam 500 mg 11/02/25 22:15 11/04/25 10:43 Levetiracetam 500 Mg Tablet PO 500 mg Q12HR DYLLAN Administration Levothyroxine Sodium 75 mcg 11/03/25 06:30 11/04/25 05:29 Levothyroxine Sodium 75 Mcg Tablet PO 75 mcg DAILY@0630 DYLLAN Administration Loratadine 10 mg 11/03/25 09:00 11/04/25 10:41 Loratadine 10 Mg Tablet PO 10 mg DAILY DYLLAN Administration Metoprolol Tartrate 25 mg 11/02/25 22:25 11/04/25 10:43 Metoprolol Tartrate 25 Mg Tablet PO 25 mg Q12HR DYLLAN Administration Miscellaneous Information 0 each 11/02/25 23:10 Dasatinib [Phyrago] 70 Mg Tablet- Nonformulary. Please Obtain A Home Supply If Possible. XX 12/02/25 23:09 CLARIFY DYLLAN Non-Formulary Medication 70 mg 11/03/25 09:00 Dasatinib [Phyrago] PO 12/03/25 08:59 DAILY DYLLAN Ondansetron HCl 4 mg 11/02/25 14:38 11/04/25 05:32 Ondansetron Inj 4 Mg/2 Ml Vial IV PUSH 4 mg Q4H PRN Administration Nausea Pantoprazole Sodium 40 mg 11/02/25 22:15 11/04/25 10:42 Pantoprazole 40 Mg Tablet PO 40 mg Q12HR DYLLAN Administration Prochlorperazine Maleate 5 mg 11/04/25 09:33 11/04/25 10:24 Prochlorperazine Maleate 5 Mg Tablet PO 5 mg Q6H PRN Administration Nausea And Vomiting Ropinirole HCl 0.5 mg 11/02/25 22:25 11/03/25 22:22 Ropinirole Hcl 0.5 Mg Tablet PO 0.5 mg HS DYLLAN Administration Senna 8.6 mg 11/02/25 22:15 Sennosides 8.6 Mg Tablet PO BID PRN Constipation Sucralfate 1 gm 11/03/25 07:30 11/04/25 11:02 Sucralfate 1 Gm Tablet PO 1 gm 0730,1100,1600,2100 DYLLAN Administration Thiamine HCl 100 mg 11/03/25 09:00 11/04/25 10:42 Thiamine Hcl 100 Mg Tablet PO 100 mg DAILY DYLLAN Administration Trazodone HCl 200 mg 11/02/25 22:35 11/03/25 22:21 Trazodone Hcl 50 Mg Tablet PO 200 mg HS DYLLAN Administration Ursodiol 300 mg 11/03/25 09:00 11/04/25 10:43 Ursodiol 300 Mg Capsule PO 300 mg Q12HR DYLLAN Administration Valacyclovir HCl 500 mg 11/03/25 09:00 11/04/25 10:43 Valacyclovir Hcl 500 Mg Tablet PO 500 mg DAILY DYLLAN Administration Radiology Results: ITS Impressions Abdomen/Pelvis CT 11/02/25 12:31 IMPRESSION: 1. Markedly distended bladder with mild bilateral hydronephrosis and hydroureter. 2. Gallbladder distention, which may be secondary to fasting. Correlate with physical exam to exclude acute cholecystitis. 3. Diffuse hepatic steatosis. 4. Moderate-sized sliding hiatal hernia. Chest X-Ray 11/02/25 12:32 IMPRESSION: 1. No acute cardiopulmonary disease. Labs Labs: Laboratory Results - last 24 hr 11/03/25 11/03/25 11/04/25 16:49 20:53 05:14 WBC 2.0 L RBC 2.66 L Hgb 8.2 L Hct 26.9 L MCV 101.1 H MCH 30.8 MCHC 30.5 L RDW 19.3 H Plt Count 187 MPV 9.9 Immature Gran % (Auto) 0.5 Neut % (Auto) 53.8 Lymph % (Auto) 29.1 [place] % (Auto) 10.1 H Eos % (Auto) 6.0 H Baso % (Auto) 0.5 Lymph # (Auto) 0.58 L [place] # (Auto) 0.2 Eos # (Auto) 0.1 Baso # (Auto) 0.0 Abs Immat Gran (auto) 0.01 Absolute Neuts (auto) 1.1 L Absolute Nucleated RBC 0.000 Nucleated RBC % 0.0 Sodium 135 L Potassium 3.6 Chloride 109 H Carbon Dioxide 26 Anion Gap 0 L BUN 8 Creatinine 0.63 L Estim Creat Clear Calc Estimated GFR Glucose POC Capillary Glucose 120 H 136 H Calcium Total Bilirubin AST ALT Alkaline Phosphatase Total Protein Albumin Vancomycin Trough 11/04/25 11/04/25 11/04/25 05:14 05:14 05:14 WBC RBC Hgb Hct MCV MCH MCHC RDW Plt Count MPV Immature Gran % (Auto) Neut % (Auto) Lymph % (Auto) [place] % (Auto) Eos % (Auto) Baso % (Auto) Lymph # (Auto) [place] # (Auto) Eos # (Auto) Baso # (Auto) Abs Immat Gran (auto) Absolute Neuts (auto) Absolute Nucleated RBC Nucleated RBC % Sodium Potassium Chloride Carbon Dioxide Anion Gap BUN Creatinine 0.62 L Estim Creat Clear Calc 88 89 Estimated GFR > 60 > 60 Glucose 92 POC Capillary Glucose Calcium 8.5 Total Bilirubin 0.5 AST 41 H ALT 23 Alkaline Phosphatase 94 Total Protein 5.0 L Albumin 3.0 L Vancomycin Trough 9.1 L 11/04/25 11/04/25 07:47 11:28 WBC RBC Hgb Hct MCV MCH MCHC RDW Plt Count MPV Immature Gran % (Auto) Neut % (Auto) Lymph % (Auto) [place] % (Auto) Eos % (Auto) Baso % (Auto) Lymph # (Auto) [place] # (Auto) Eos # (Auto) Baso # (Auto) Abs Immat Gran (auto) Absolute Neuts (auto) Absolute Nucleated RBC Nucleated RBC % Sodium Potassium Chloride Carbon Dioxide Anion Gap BUN Creatinine Estim Creat Clear Calc Estimated GFR Glucose POC Capillary Glucose 89 109 H Calcium Total Bilirubin AST ALT Alkaline Phosphatase Total Protein Albumin Vancomycin Trough
--- NOTE | 2025-11-04 14:59 | PCOTNOTE ---
Attempted OT evaluation. Spent 13 minutes with pt setting up room, getting rollator and getting prior levels and then pt states she is declining to get up due to being in pain. RN had already been notified that pt was asking for pain medication. Pt declined attempting change of position to see if that would help her pain.
[2025-11-04] MEDS: ACETAMINOPHEN 325 MG TABLET 650 MG PO (15:03)
--- NOTE | 2025-11-04 15:28 | PCPTNOTE ---
Attempted PT evaluation, pt refused due to pain. Will follow.
[2025-11-04] MEDS: ATORVASTATIN 40 MG TABLET PO (17:42)
[2025-11-04] MEDS: ENOXAPARIN 40 MG/0.4 ML SYRINGE SUB-Q (20:33)
[2025-11-05] VITALS (8 sets, daily range): BP systolic 131–134; BP diastolic 60–61; PULSE 53–71; RESP 16–18; TEMP 36.2–36.4; O2SAT 95–97
[2025-11-05] MEDS: VANCOMYCIN 1,750 MG/NS 500 ML 1,750 MG/500 ML BAG 250 MG IVPB (05:09)
[2025-11-05] MEDS: PROCHLORPERAZINE MALEATE 5 MG TABLET PO (05:09)
[2025-11-05 05:27] LABS: Hematocrit 28.7 % (37.0-47.0); Hemoglobin 8.4 g/dL (12.0-15.0); Immature Granulocyte Percent A 0.5 % (0-0.5); Lymphocytes Absolute Auto 0.84 K/mm3 (0.9-3.2); Mean Corpuscular HGB Conc 29.3 g/dl (32-36); Mean Corpuscular Hemoglobin 30.3 pg (26-34); Mean Corpuscular Volume 103.6 fl (80-100); Nucleated Red Blood Cells Absolute Auto 0.000 K/mm3 (0.0-0.012); Nucleated Red Blood Cells Perc 0.0 % (0.0-0.2); Platelet Count Result 167 k/mm3 (150-375); Red Blood Count 2.77 M/mm3 (4.2-5.4); White Blood Count 2.1 K/mm3 (4.5-10.0)
[2025-11-05] MEDS: clonazePAM (*CRX) 0.25 MG TABLET 0.75 MG PO (05:36)
[2025-11-05] MEDS: LEVOTHYROXINE SODIUM 75 MCG TABLET PO (05:36)
[2025-11-05 05:46] LABS: Alanine Aminotransferase 25 U/L (6-35); Albumin Level 3.0 g/dL (3.5-5.1); Alkaline Phosphatase 79 U/L (38-126); Anion Gap 0 mmol/L (4-12); Aspartate Amino Transferase 43 U/L (14-36); Bilirubin,Total 0.5 mg/dL (0.2-1.3); Blood Urea Nitrogen 6 mg/dL (7-17); Calcium 8.5 mg/dL (8.4-10.2); Carbon Dioxide 26 mmol/L (22-30); Chloride 111 mmol/L (98-107); Estimated CRCL calculation 89 ml/min; Estimated Glomerular Filt Rate > 60; Glucose 90 mg/dL (65-110); Potassium 3.7 mmol/L (3.4-5.0); Sodium 137 mmol/L (137-145); Total Protein 5.1 g/dL (6.3-8.2)
[2025-11-05] MEDS: SUCRALFATE 1 GM TABLET PO ×3 (06:53→16:41)
[2025-11-05] MEDS: DAPSONE 25 MG TABLET 100 MG PO (08:45)
[2025-11-05] MEDS: ACETAMINOPHEN 325 MG TABLET 650 MG PO (08:46)
[2025-11-05] MEDS: PANTOPRAZOLE 40 MG TABLET PO (08:47)
[2025-11-05] MEDS: lamoTRIgine 50 MG TABLET PO (08:47)
[2025-11-05] MEDS: DULoxetine HCL 60 MG CAPSULE.DR PO (08:49)
[2025-11-05] MEDS: METOPROLOL TARTRATE 25 MG TABLET PO (08:50)
[2025-11-05] MEDS: ASPIRIN 81 MG CHEWABLE TABLET PO (08:51)
[2025-11-05] MEDS: LORATADINE 10 MG TABLET PO (08:52)
[2025-11-05] MEDS: clonazePAM (*CRX) 0.5 MG TABLET 1 MG PO (12:53)
--- NOTE | 2025-11-05 13:45 | PC.NURSE ---
pt bladder scanned @1320 11/05/25 with pre-void amount being 174cc; pt attempted to urinate in BR without success, but feels urge to urinate.
--- NOTE | 2025-11-05 14:18 | PM.DS ---
DS: Admitting Diagnosis Discharge Date 11/05/2025 Admitting Diagnosis Urinary retention DS: Discharge Diagnosis Discharge Diagnosis (1) Acute urinary retention: Code(s): R33.8 - Other retention of urine Status: Acute (2) RO (acute kidney injury): Code(s): N17.9 - Acute kidney failure, unspecified Status: Acute (3) Lactic acidosis: Code(s): E87.20 - Acidosis, unspecified Status: Acute (4) Alcoholic intoxication: Qualifiers: Complication of substance-induced condition: with unspecified complication Qualified Code(s): F10.929 - Alcohol use, unspecified with intoxication, unspecified Code(s): F10.929 - Alcohol use, unspecified with intoxication, unspecified Status: Acute (5) Leukocytosis: Qualifiers: Leukocytosis type: unspecified Qualified Code(s): D72.829 - Elevated white blood cell count, unspecified Code(s): D72.829 - Elevated white blood cell count, unspecified Status: Acute (6) B-cell acute lymphoblastic leukemia: Onset Date: 2023 Code(s): C91.00 - Acute lymphoblastic leukemia not having achieved remission Status: Chronic (7) Bipolar disorder: Qualifiers: Active/Remission status: currently active Current bipolar episode type: depressed Current episode severity: unspecified Qualified Code(s): F31.30 - Bipolar disorder, current episode depressed, mild or moderate severity, unspecified Code(s): F31.9 - Bipolar disorder, unspecified Status: Chronic DS: Summary Hospital Course Reason for hospitalization: UTI symptoms Hospital Course: The patient is a 65-year-old female with a complex medical history including B-cell acute lymphoblastic leukemia (ALL), alcoholism, bipolar disorder, seizure disorder, prior TIAs, and IN, who presented from [facility] on 11/02/25 with severe lower abdominal pain and symptoms suggestive of a urinary tract infection. On arrival, she was visibly intoxicated (ethyl alcohol 236 mg/dL), anxious, and provided limited history. Initial evaluation revealed acute urinary retention with a markedly distended bladder, bilateral hydronephrosis and hydroureter on CT, and no evidence of obstructive pathology or infection on urinalysis. She was also found to have acute kidney injury (Cr 1.26, baseline 0.5-0.6), lactic acidosis (lactate 4.5), and leukocytosis (WBC 18.6). A Howell catheter was placed for bladder decompression, and she received aggressive IV fluid resuscitation, resulting in rapid improvement of renal function and resolution of lactic acidosis. Urology was consulted, and ongoing management included monitoring of intake/output, renal function, and plans for a voiding trial prior to discharge. The patient?s mental status was intermittently limited by alcohol intoxication and underlying psychiatric comorbidities, but she remained hemodynamically stable throughout her stay. Her ALL was managed with continuation of home dasatinib and dapsone. She was maintained on [facility] protocol for alcohol withdrawal, with scheduled clonazepam and PRN diazepam, and seizure precautions were implemented. Over the course of hospitalization, her creatinine normalized, lactic acid resolved, and her urinary retention improved with bladder decompression. She remained neutropenic, consistent with her underlying leukemia. The patient tolerated the hospital course without new complications, and plans were made for a voiding trial and outpatient urodynamic studies if retention persisted. Void trial was attempted on 11/04, urinary Howell catheter was removed however she continued to have urinary retention. Bladder scan was as high as 170 mL, however she continued to have the desire to urinate but was not able to during hospitalization. Howell catheter will be replaced and she will be discharged with appropriate follow-up with Urology in the outpatient setting. She will be advised to follow-up in 1 week for an attempt to void trial again. Plan for discharge back to [facility], where the patient will attempt to find alternative housing as she does not want to remain fair. Patient is hemodynamically stable for discharge at that time. Status at Discharge Functional status at discharge: uses cane/walker Overall status at discharge: patient is back to baseline Time Spent with Patient Time attestation: Total time spent providing and/or coordinating discharge services: 27 Exam Narrative: GENERAL: Disheveled. Mild distress HEAD: Normocephalic, atraumatic. EYES: Conjunctivae clear. NOSE: Normal no drainage. THROAT: Pharynx clear, no exudate. NECK: Trachea midline. No adenopathy, no masses. RESPIRATORY: Airway patent, respirations nonlabored. CTA. CARDIOVASCULAR: regular rate and rhythm BREASTS: Defer GASTROINTESTINAL: tenderness in the suprapubic area with palpation. Bowel sounds normal in all quadrants. GENITOURINARY: Defer MUSCULOSKELETAL: Moves all extremities. No gross deformities. SKIN: Warm, dry, normal color. NEURO: A&O X4. Speech clear PSYCHIATRIC: Poor eye contact. DS: Data Data Completed and Pending Labs on day of discharge: Labs from last 24 hours 11/05/25 11/05/25 11/05/25 11:58 07:52 04:45 WBC 2.1 L RBC 2.77 L Hgb 8.4 L Hct 28.7 L MCV 103.6 H MCH 30.3 MCHC 29.3 L RDW 18.9 H Plt Count 167 MPV 10.3 Immature Gran % (Auto) 0.5 Neut % (Auto) 39.4 L Lymph % (Auto) 40.0 [place] % (Auto) 8.6 H Eos % (Auto) 10.5 H Baso % (Auto) 1.0 Lymph # (Auto) 0.84 L [place] # (Auto) 0.2 Eos # (Auto) 0.2 Baso # (Auto) 0.0 Abs Immat Gran (auto) 0.01 Absolute Neuts (auto) 0.8 L Absolute Nucleated RBC 0.000 Nucleated RBC % 0.0 Sodium 137 Potassium 3.7 Chloride 111 H Carbon Dioxide 26 Anion Gap 0 L BUN 6 L Creatinine 0.62 L Estim Creat Clear Calc 89 Estimated GFR > 60 Glucose 90 POC Capillary Glucose 99 91 Calcium 8.5 Total Bilirubin 0.5 AST 43 H ALT 25 Alkaline Phosphatase 79 Total Protein 5.1 L Albumin 3.0 L 11/04/25 11/04/25 20:18 16:52 WBC RBC Hgb Hct MCV MCH MCHC RDW Plt Count MPV Immature Gran % (Auto) Neut % (Auto) Lymph % (Auto) [place] % (Auto) Eos % (Auto) Baso % (Auto) Lymph # (Auto) [place] # (Auto) Eos # (Auto) Baso # (Auto) Abs Immat Gran (auto) Absolute Neuts (auto) Absolute Nucleated RBC Nucleated RBC % Sodium Potassium Chloride Carbon Dioxide Anion Gap BUN Creatinine Estim Creat Clear Calc Estimated GFR Glucose POC Capillary Glucose 114 H 104 Calcium Total Bilirubin AST ALT Alkaline Phosphatase Total Protein Albumin Preliminary micro results at discharge 11/02/25 13:05 Blood Culture - Preliminary Blood 11/02/25 13:05 Blood Culture - Preliminary Blood Discharge Plan Discharge Attending physician on discharge: Jason García Consulting providers: Ham Wylie; Teja Hankins Discharging Clinician: Ham Wylie Anticipated Discharge Date/Time: 11/05/25 14:11 Patient Disposition: NH Usp/Asst Living Activity: as tolerated Diet: regular Discharge Instructions: Discharge disposition: [facility] Take medications as prescribed Monitor blood pressures Take caution while standing, rising, or moving Change positions slowly taking a break between each position change If you standing feel dizzy sit back down and take a break Encouraged to continue with yearly vaccinations Return to the emergency department if you develop sudden shortness of breath, chest pain, nausea, vomiting, upset stomach or intractable diarrhea Return to the emergency department if you develop fever greater than 101.5 Follow-up with the primary care physician within 1-2 weeks You will be discharged with a howell catheter - follow up with Urology in 1 week for removal of the howell catheter and for a repeat voiding trial. Thank you for [facility] for your healthcare needs Patient Instructions: Antibiotic Form Patient Language: Upper Sorbian Stand Alone Forms: General Discharge Information Follow-up/Referrals: Christie Reyes [Other] Devyn Moreno PA [Physician [employer], Urology] Discharge Medications: Continued albuterol sulfate 90 mcg/actuation HFA aerosol inhaler 2 puff INHALATION Q4H PRN (Reason: shortness of breath or wheezing) aspirin 81 mg capsule 81 mg PO DAILY atorvastatin 40 mg tablet 40 mg PO QPM clonazepam 1 mg tablet 1 mg PO .@1200 clonazepam 0.5 mg tablet 0.75 mg PO Q12H Patient Comments: takes at 6am and 6pm dapsone 100 mg tablet 100 mg PO DAILY duloxetine 60 mg capsule,delayed release(DR/EC) 60 mg PO DAILY fluticasone propionate 50 mcg/actuation spray,suspension 2 spray INTRANASAL Q12H hydroxyzine HCl 25 mg tablet 25 mg PO TID PRN (Reason: itching) lamotrigine 150 mg tablet 150 mg PO Q12H levetiracetam 500 mg tablet 500 mg PO Q12H levothyroxine 75 mcg tablet 75 mcg PO DAILY loratadine [Allergy Relief (loratadine)] 10 mg tablet 10 mg PO DAILY olopatadine 0.1 % drops 1 drp EACH EYE BID PRN (Reason: dry eyes) Rx Instructions: separate doses by at least 6-8 hours ondansetron HCl 4 mg tablet 4 mg PO Q6H PRN (Reason: nausea and vomiting) pantoprazole 40 mg tablet,delayed release (DR/EC) 40 mg PO Q12H ropinirole 0.5 mg tablet 0.5 mg PO HS sennosides [Laxative (sennosides)] 8.6 mg tablet 8.6 mg PO BID PRN (Reason: constipation) dasatinib [Phyrago] 70 mg tablet 70 mg PO DAILY sucralfate 1 gram tablet 1 g PO QID trazodone 100 mg tablet 200 mg PO HS ursodiol 300 mg capsule 300 mg PO Q12H valacyclovir 500 mg tablet 500 mg PO DAILY folic acid 1 mg Tablet 1 mg PO DAILY Qty: 30 0RF thiamine HCl (vitamin B1) [Vitamin B-1] 100 mg Tablet 100 mg PO DAILY Qty: 30 0RF metoprolol tartrate 25 mg Tablet 25 mg PO Q12HR Qty: 60 0RF Date of admission: 11/02/25 14:38 Primary Care Provider: Christie Reyes Admitting Provider: Elijah Blackman Attending physician on admission: Elijah Blackman Condition: Stable Quality VTE Prophylaxis VTE prophylaxis: pharmacologic ordered
--- NOTE | 2025-11-05 16:27 | P.PNUR_ITS ---
Progress Note: A&P Assessment and Plan (1) Urinary retention: Code(s): R33.9 - Retention of urine, unspecified Status: Acute Assessment and Plan: - Etiology of urinary retention not immediately forthcoming. Suspect it may be related to Hx of alcohol abuse. - hydro resolved. cr 0.62 today. - Voiding trial today; Johnson catheter to be replaced for any PVRs > 250 ml - If persistent urinary retention may benefit from outpatient UDS to better evaluate (2) Hydronephrosis: Qualifiers: Hydronephrosis type: unspecified Qualified Code(s): N13.30 - Unspecified hydronephrosis Code(s): N13.30 - Unspecified hydronephrosis Status: Acute Assessment and Plan: - BL HUN 2/ AUR - JERO shows resolved hydro. may do voidng trial. - Creatinine normalized currently Subjective Subjective Date/Time Seen: 11/05/25 16:27 Interval history: patient is sitting in the chair. She is doing better. Review of Systems Constitutional: Constitutional: Denies chills ENT: Reports Normal hearing present, Denies nasal congestion and Denies nasal discharge Cardiovascular: Cardiovascular: Denies chest pain and Denies dyspnea Respiratory: Respiratory: Denies dyspnea and Denies wheezing Gastrointestinal: Gastrointestinal: Reports abdominal pain, Denies constipation and Reports diarrhea Genitourinary: Genitourinary: Denies hematuria, Reports pelvic pain and Denies flank pain Musculoskeletal: Musculoskeletal: Reports back pain Neurologic: Reports Normal hearing present, Denies Abnormal speech present and Denies confusion Psychiatric: Psychiatric: Denies confusion Allergic/Immunologic: Allergic/Immunologic: Denies wheezing Exam Const: General: No confusion Orientation/consciousness: No confusion Neuro: General: No confusion Cranial nerves: Yes Normal hearing present Speech: No Abnormal speech present Objective Data Vital Signs Vital Signs: Vital Signs - 24 hr 11/04/25 20:00 11/04/25 20:32 11/04/25 21:52 Temperature 97.1 F L Pulse Rate 80 80 76 Pulse Rate [Apical] Respiratory Rate 16 Blood Pressure 99/38 L Pulse Oximetry 92 Oxygen Delivery 11/05/25 00:00 11/05/25 04:00 11/05/25 06:00 Temperature 97.5 F L Pulse Rate 53 L 59 L 65 Pulse Rate [Apical] Respiratory Rate 18 Blood Pressure 134/60 Pulse Oximetry 95 Oxygen Delivery 11/05/25 08:00 11/05/25 08:00 11/05/25 08:00 Temperature Pulse Rate 61 Pulse Rate [Apical] 62 Respiratory Rate Blood Pressure 134/60 Pulse Oximetry Oxygen Delivery Room Air 11/05/25 08:50 11/05/25 09:03 11/05/25 09:43 Temperature Pulse Rate 68 Pulse Rate [Apical] Respiratory Rate Blood Pressure Pulse Oximetry Oxygen Delivery Room Air Room Air 11/05/25 12:00 11/05/25 12:04 11/05/25 14:00 Temperature 97.2 F L Pulse Rate 62 71 Pulse Rate [Apical] 62 Respiratory Rate 16 Blood Pressure 131/61 Pulse Oximetry 97 Oxygen Delivery Intake/Output Intake/Output: Intake & Output 11/02/25 11/03/25 11/04/25 11/05/25 23:59 23:59 23:59 23:59 Intake Total 2950 2090 3910 1880 Output Total 2150 2175 1750 1400 Balance 800 -85 2160 480 Meds/Results Medications: Active Medications Generic Name Dose Route Start Last Admin Trade Name Freq PRN Reason Stop Dose Admin Acetaminophen 650 mg 11/05/25 08:15 11/05/25 08:46 Acetaminophen 325 Mg Tablet PO 650 mg Q4H PRN Administration Headache Aspirin 81 mg 11/03/25 08:00 11/05/25 08:51 Aspirin 81 Mg Chewable Tablet PO 81 mg DAILY@0800 DYLLAN Administration Atorvastatin Calcium 40 mg 11/03/25 18:00 11/04/25 17:42 Atorvastatin 40 Mg Tablet PO 40 mg QPM DYLLAN Administration Clonazepam 1 mg 11/03/25 12:00 11/05/25 12:53 Clonazepam (*Crx) 0.5 Mg Tablet PO 1 mg 1200 DYLLAN Administration Clonazepam 0.75 mg 11/05/25 06:00 11/05/25 05:36 Clonazepam (*Crx) 0.25 Mg Tablet PO 0.75 mg Q12H DYLLAN Administration Dapsone 100 mg 11/03/25 09:00 11/05/25 08:45 Dapsone 25 Mg Tablet PO 100 mg DAILY DYLLAN Administration Diazepam 5 mg 11/02/25 16:15 Diazepam Inj (*Crx) 10 Mg/2 Ml Syringe IV PUSH Q2H PRN Alcohol Withdrawal Duloxetine HCl 60 mg 11/03/25 09:00 11/05/25 08:49 Duloxetine Hcl 60 Mg Capsule.Dr PO 60 mg DAILY DYLLAN Administration Enoxaparin Sodium 40 mg 11/02/25 22:05 11/04/25 20:33 Enoxaparin 40 Mg/0.4 Ml Syringe SUB-Q 40 mg HS DYLLAN Administration Fluticasone Propionate 2 spray 11/03/25 09:00 11/05/25 08:55 Fluticasone Propionate 0.05% Na Spr 16 Gm Btl (*Bkc) NASAL Not Given DAILY DYLLAN Folic Acid 1 mg 11/03/25 09:00 11/05/25 08:48 Folic Acid 1 Mg Tablet PO Not Given DAILY DYLLAN Hydroxyzine HCl 25 mg 11/02/25 22:15 Hydroxyzine Hcl 25 Mg Tablet PO TID PRN Itching Sodium Chloride 1,000 mls @ 125 mls/hr 11/02/25 21:55 11/05/25 10:30 Normal Saline Iv IV CONT Infused .Q8H DYLLAN Infusion Vancomycin HCl 1,750 mg in 500 mls @ 250 mls/hr 11/04/25 06:00 11/05/25 05:09 Vancomycin 1,750 Mg/Ns 500 Ml IVPB 250 mls/hr Q12H DYLLAN Administration Lamotrigine 100 mg 11/02/25 22:50 11/05/25 08:49 Lamotrigine 100 Mg Tablet PO 100 mg Q12HR DYLLAN Administration Lamotrigine 50 mg 11/02/25 22:50 11/05/25 08:47 Lamotrigine 50 Mg Tablet PO 50 mg Q12HR DYLLAN Administration Levetiracetam 500 mg 11/02/25 22:15 11/05/25 08:45 Levetiracetam 500 Mg Tablet PO 500 mg Q12HR DYLLAN Administration Levothyroxine Sodium 75 mcg 11/03/25 06:30 11/05/25 05:36 Levothyroxine Sodium 75 Mcg Tablet PO 75 mcg DAILY@0630 DYLLAN Administration Loratadine 10 mg 11/03/25 09:00 11/05/25 08:52 Loratadine 10 Mg Tablet PO 10 mg DAILY DYLLAN Administration Metoprolol Tartrate 25 mg 11/02/25 22:25 11/05/25 08:50 Metoprolol Tartrate 25 Mg Tablet PO 25 mg Q12HR DYLLAN Administration Miscellaneous Information 0 each 11/02/25 23:10 Dasatinib [Phyrago] 70 Mg Tablet- Nonformulary. Please Obtain A Home Supply If Possible. XX 12/02/25 23:09 CLARIFY DYLLAN Non-Formulary Medication 70 mg 11/03/25 09:00 Dasatinib [Phyrago] PO 12/03/25 08:59 DAILY DYLLAN Ondansetron HCl 4 mg 11/02/25 14:38 11/04/25 05:32 Ondansetron Inj 4 Mg/2 Ml Vial IV PUSH 4 mg Q4H PRN Administration Nausea Pantoprazole Sodium 40 mg 11/02/25 22:15 11/05/25 08:47 Pantoprazole 40 Mg Tablet PO 40 mg Q12HR DYLLAN Administration Prochlorperazine Maleate 5 mg 11/04/25 09:33 11/05/25 05:09 Prochlorperazine Maleate 5 Mg Tablet PO 5 mg Q6H PRN Administration Nausea And Vomiting Ropinirole HCl 0.5 mg 11/02/25 22:25 11/04/25 20:33 Ropinirole Hcl 0.5 Mg Tablet PO 0.5 mg HS [facility] Administration Senna 8.6 mg 11/02/25 22:15 Sennosides 8.6 Mg Tablet PO BID PRN Constipation Sucralfate 1 gm 11/03/25 07:30 11/05/25 12:52 Sucralfate 1 Gm Tablet PO 1 gm 0730,1100,1600,2100 [facility] Administration Thiamine HCl 100 mg 11/03/25 09:00 11/05/25 08:48 Thiamine Hcl 100 Mg Tablet PO Not Given DAILY [facility] Trazodone HCl 200 mg 11/02/25 22:35 11/04/25 20:32 Trazodone Hcl 50 Mg Tablet PO 200 mg HS [facility] Administration Ursodiol 300 mg 11/03/25 09:00 11/05/25 08:48 Ursodiol 300 Mg Capsule PO 300 mg Q12HR [facility] Administration Valacyclovir HCl 500 mg 11/03/25 09:00 11/05/25 08:50 Valacyclovir Hcl 500 Mg Tablet PO Not Given DAILY [facility] Radiology Results: ITS Impressions Abdomen/Pelvis CT 11/02/25 12:31 IMPRESSION: 1. Markedly distended bladder with mild bilateral hydronephrosis and hydroureter. 2. Gallbladder distention, which may be secondary to fasting. Correlate with physical exam to exclude acute cholecystitis. 3. Diffuse hepatic steatosis. 4. Moderate-sized sliding hiatal hernia. Chest X-Ray 11/02/25 12:32 IMPRESSION: 1. No acute cardiopulmonary disease. Renal Ultrasound 11/04/25 14:22 IMPRESSION: 1. Normal size kidneys without obstructive changes. The hydronephrosis and hydroureter noted on CT scan of 11/02/2025 was most likely due to distended bladder. Labs Labs: Laboratory Results - last 24 hr 11/04/25 11/04/25 11/05/25 16:52 20:18 04:45 WBC 2.1 L RBC 2.77 L Hgb 8.4 L Hct 28.7 L MCV 103.6 H MCH 30.3 MCHC 29.3 L RDW 18.9 H Plt Count 167 MPV 10.3 Immature Gran % (Auto) 0.5 Neut % (Auto) 39.4 L Lymph % (Auto) 40.0 [place] % (Auto) 8.6 H Eos % (Auto) 10.5 H Baso % (Auto) 1.0 Lymph # (Auto) 0.84 L [place] # (Auto) 0.2 Eos # (Auto) 0.2 Baso # (Auto) 0.0 Abs Immat Gran (auto) 0.01 Absolute Neuts (auto) 0.8 L Absolute Nucleated RBC 0.000 Nucleated RBC % 0.0 Sodium 137 Potassium 3.7 Chloride 111 H Carbon Dioxide 26 Anion Gap 0 L BUN 6 L Creatinine 0.62 L Estim Creat Clear Calc 89 Estimated GFR > 60 Glucose 90 POC Capillary Glucose 104 114 H Calcium 8.5 Total Bilirubin 0.5 AST 43 H ALT 25 Alkaline Phosphatase 79 Total Protein 5.1 L Albumin 3.0 L 11/05/25 11/05/25 07:52 11:58 WBC RBC Hgb Hct MCV MCH MCHC RDW Plt Count MPV Immature Gran % (Auto) Neut % (Auto) Lymph % (Auto) [place] % (Auto) Eos % (Auto) Baso % (Auto) Lymph # (Auto) [place] # (Auto) Eos # (Auto) Baso # (Auto) Abs Immat Gran (auto) Absolute Neuts (auto) Absolute Nucleated RBC Nucleated RBC % Sodium Potassium Chloride Carbon Dioxide Anion Gap BUN Creatinine Estim Creat Clear Calc Estimated GFR Glucose POC Capillary Glucose 91 99 Calcium Total Bilirubin AST ALT Alkaline Phosphatase Total Protein Albumin
== END 2025-11-05 17:22 | DRG 683 ==
LOC: ANHED 11:39 → ANH2MED 17:25
PROVIDERS: Nurse Practitioner Adult Health; Admitting Provider Family Medicine; Emergency Provider General Practice; Visit Provider Physician Assistant
DX: N17.9 Acute kidney failure, unspecified (principal); C91.00 Acute lymphoblastic leukemia not having achieved remission; E87.20 Acidosis, unspecified; N13.30 Unspecified hydronephrosis; E03.9 Hypothyroidism, unspecified; R33.9 Retention of urine, unspecified; G40.909 Epilepsy, unspecified, not intractable, without status epilepticus; G47.33 Obstructive sleep apnea (adult) (pediatric); F10.229 Alcohol dependence with intoxication, unspecified; F43.10 Post-traumatic stress disorder, unspecified; F31.9 Bipolar disorder, unspecified; Z79.82 Long term (current) use of aspirin; Z86.73 Personal history of transient ischemic attack (TIA), and cerebral infarction without residual deficits
CPT/HCPCS: 36415; 71045; 74177; 76770; 80048; 80053; 80202; 80307; 81001; 82077; 82565; 82948; 83605; 83690; 85025; 85046; 85055; 85610; 87040; 93005; 96361; 96374; 96376; 97161; 97166; 99285; A9270; J0692; J1650; J2405; J3373; J3411; J3475; J7030; Q9967